=== PATIENT | male | born 1985 | race Caucasian/White ===

== ENCOUNTER 2017-12-29 06:32 | Emergency (ER) | payer OTHER ==
[~2017-12-29] VITALS: Ht 188 cm; Wt 86.2 kg
[2017-12-29 06:35] VITALS: BP 94/51
--- NOTE | 2017-12-29 06:41 | NUR ---
PT TAKEN TO BED 11
--- NOTE | 2017-12-29 06:45 | NUR ---
Dr. Cat evaluating patient at bedside.
[2017-12-29] MEDS ORDERED: PHENYLEPHRINE 0.5% 15 ML BTL NS ONE ×2 (07:01→07:10)
[2017-12-29] MEDS ORDERED: BENZOCAINE 20% 57 GM CAN MC ONE (07:10)
--- NOTE | 2017-12-29 07:18 | NUR ---
PT BIB SELF C/O "Q-TIP" TO LEFT NOSTRIL BEING STUCK FOR A FEW DAYS . PT STATES HE HAD BLOODY NOSE AND WAS CLEANING NOSE AND APPLYING NEOSPORIN WHEN QTIP GOT STUCK. PT APPEARS TO BE IN NO APPARENT DISTRESS AT THIS TIME, SITTING IN WHEELCHAIR. NO BLEEDING, D/C OR FOREIGN BODY NOTED. PT STATES THE "ENTIRE QTIP FELL INTO NOSE" .
--- NOTE | 2017-12-29 07:18 | NUR ---
DR GALLARDO AT BEDSIDE EVALUATING PT.
[2017-12-29 08:17] VITALS: BP 101/59
--- NOTE | 2017-12-29 08:18 | NUR ---
Patient discharged with v/s stable. Written and verbal after care instructions given and explained. Patient verbalized understanding. Wheel Chair Assisted with to home. All questions addressed prior to discharge. Advised to follow up with PMD.
== END 2017-12-29 08:18 | disposition home or self-care (01) ==
LOC: MED 06:32
DX: Z03.89 Encounter for observation for other suspected diseases and conditions ruled out (principal); G82.50 Quadriplegia, unspecified
CPT/HCPCS: 99282

== ENCOUNTER 2019-06-22 15:42 | Emergency (ER) | payer OTHER ==
[~2019-06-22] VITALS: Ht 182.9 cm; Wt 86.2 kg
--- NOTE | 2019-06-22 15:48 | NUR ---
PT WHEELCHAIRED IN PERSONAL WHEELCHAIR TO ER BED 03
[2019-06-22 15:51] VITALS: BP 87/60
--- NOTE | 2019-06-22 16:26 | NUR ---
33 Y/O M IN THE ED FOR MEDICAL CLEARANCE FOR HIS MD. PT NEEDED AN EKG FOR CLEARANCE. GLADYS
--- NOTE | 2019-06-22 16:58 | NUR ---
DR HI AT BEDSIDE EXAMINING PATIENT.
[2019-06-22 17:02] VITALS: BP 87/60
--- NOTE | 2019-06-22 17:02 | NUR ---
Patient discharged with v/s stable. Written and verbal after care instructions given and explained. Patient verbalized understanding. Ambulatory with steady gait. All questions addressed prior to discharge. Advised to follow up with PMD. DR. HI DISCHARGED PATIENT.
== END 2019-06-22 17:02 | disposition home or self-care (01) ==
LOC: MED 15:42
DX: M54.2 Cervicalgia (principal); M25.519 Pain in unspecified shoulder; Z98.890 Other specified postprocedural states
CPT/HCPCS: 93005; 99283

== ENCOUNTER 2021-09-25 21:17 | Emergency (ER) | payer OTHER ==
[~2021-09-25] VITALS: Ht 188 cm; Wt 86.2 kg
[2021-09-25 21:48] VITALS: BP 142/85
--- NOTE | 2021-09-25 23:31 | NUR ---
Dr. Harding examming patient.
--- NOTE | 2021-09-26 00:06 | NUR ---
Jesus Manuel chan in [facility] - 09/26/21 at 0507 by [email or web address] Patient D/C without D/C papers.
[2021-09-26 00:40] VITALS: BP 142/85
--- NOTE | 2021-09-26 00:40 | NUR ---
Patient came back to ER . Patient discharged with v/s stable. Written and verbal after care instructions given and explained. Patient verbalized understanding. Ambulatory with steady gait. All questions addressed prior to discharge. Advised to follow up with PMD.
== END 2021-09-26 00:40 | disposition home or self-care (01) ==
LOC: MED 21:17
DX: S89.92XA Unspecified injury of left lower leg, initial encounter (principal); W18.2XXA Fall in (into) shower or empty bathtub, initial encounter; Y92.89 Other specified places as the place of occurrence of the external cause; Y93.89 Activity, other specified; Y99.8 Other external cause status
CPT/HCPCS: 73562; 99283

== ENCOUNTER 2021-11-26 10:16 | Inpatient (IN) | payer OTHER ==
[~2021-11-26] VITALS: Ht 188 cm; Wt 69.4 kg
--- NOTE | 2021-11-26 10:16 | NUR ---
PT BIBA, ALS, TO BED 10.
--- NOTE | 2021-11-26 10:20 | NUR ---
36 Y/O MALE BIBA ALS FROM [facility] FOR LOW BLOOD PRESSURE 68/38 ON SCENE. IV TO R AC 18G STARTED WITH NS FLUIDS RUNNING. ON ARRIVAL PT BP 61/30, A&OX4, STAGE 4 PRESSURE ULCER NOTED TO LEFT GLUTE, ACTIVE BLEEDING. ERMD REMOVED LARGE BLOOD CLOT. DENIES FEVER/CHILLS. DENIES N/V. 2NS BOLUS VERBAL ORDER AT BEDSIDE STARTED, PT ON BOX PERSON. EMT AT BEDSIDE FOR WOUND CARE. PMH: QUADREPLEGIC NKA
--- NOTE | 2021-11-26 10:22 | NUR ---
CODE SEPSIS CALLED BY STORM.
[2021-11-26 10:24] VITALS: BP 61/30
[2021-11-26] MEDS ORDERED: NACL 0.9% 1,000 ML IV ONE (10:25)
--- NOTE | 2021-11-26 11:04 | NUR ---
Patient noted to have existing wounds upon arrival to ER. Photos taken of wound and placed in chart. Wound covered with dressing. Physician informed.
[2021-11-26 11:09] LABS: BASOPHILS # (AUTO) 0.1 K/uL (0.00-0.22); BASOPHILS % (AUTO) 0.9 % (0.0-2.0); EOSINOPHILS # (AUTO) 0.1 K/uL (0-0.4); EOSINOPHILS % (AUTO) 1.2 % (0.0-4.0); LYMPHOCYTES # (AUTO) 1.8 K/uL (2.0-11.5); LYMPHOCYTES % (AUTO) 22.7 % (20.5-51.1); MEAN CORPUSCULAR HEMOGLOBIN 27 pg (27-31); MEAN CORPUSCULAR HGB CONC 33 g/dL (33-37); MEAN CORPUSCULAR VOLUME 82.1 fL (80-94); MONOCYTES # (AUTO) 0.6 K/uL (0.8-1.0); NEUTROPHILS # (AUTO) 5.3 K/uL (1.8-7.7); NEUTROPHILS % (AUTO) 67.2 % (42.2-75.2); PLATELET COUNT (AUTO) 330 K/uL (140-450); RED BLOOD CELL COUNT(AUTO) 2.07 MIL/uL (4.20-6.10); RED CELL DISTRIBUTION WIDTH 17.3 % (11.6-13.7); WHITE BLOOD COUNT (AUTO) 7.8 K/uL (4.8-10.8)
[2021-11-26] MEDS ORDERED: cefTRIAXone 1,000 MG VIAL ONE (11:11)
[2021-11-26 11:12] LABS: HEMOGLOBIN 5.6 g/dL (12.0-18.0)
[2021-11-26 11:16] LABS: ALBUMIN 1.8 g/dL (3.4-5.0); ANION GAP 11.8 (8-16); CARBON DIOXIDE 26.8 mmol/L (21-32); CREATININE 0.7 mg/dL (0.6-1.3); POTASSIUM 3.6 mmol/L (3.5-5.1); TOTAL BILIRUBIN 0.2 mg/dL (0.0-1.0)
[2021-11-26 11:17] LABS: PROTHROMBIN TIME 11.1 secs (10.8-13.4)
--- NOTE | 2021-11-26 11:45 | NUR ---
Emergent Consent signed per agreeing to administration of blood. Blood sent from blood bank. Information on unit of blood checked against patient wristband at bedside by two nurses. All information matches. Patient or responsible constitution party informed of potential complications associated with blood transfusion. Informed of possible transfusion reaction symptoms. Aware of need to notify nurse at once of itching, shortness of breath, flushing, feeling of impending doom, or other symptoms not previously present. Vital signs taken within 5 minutes prior to initiation of transfusion. RN will remain with patient for first 15 minutes of transfusion at which time vital signs will be re-assessed.
--- NOTE | 2021-11-26 13:22 | NUR ---
DR BAUER AT BEDSIDE EVALUATING PT. 4 UNITS OF PRBCS ORDERED. RECEIVED ORDER TO ONLY INFUSE 2, THEN LET HIM KNOW.
--- NOTE | 2021-11-26 13:28 | NUR ---
JASON SWAB COLLECTED AND WALKED TO LAB
[2021-11-26] MEDS ORDERED: ZOLPIDEM 5 MG TAB PO PRN (13:40)
[2021-11-26] MEDS ORDERED: POTASSIUM CHLORIDE 10 MEQ TABER PO PRN (13:40)
[2021-11-26] MEDS ORDERED: guaiFENesin DM 200/20 MG-10 ML 10 ML UDC PO PRN (13:40)
[2021-11-26] MEDS ORDERED: ACETAMINOPHEN 325 MG TAB PO PRN (13:40)
[2021-11-26] MEDS ORDERED: ONDANSETRON 4 MG/2 ML VIAL IM/IVP PRN (13:40)
[2021-11-26] MEDS ORDERED: DOCUSATE SODIUM 100 MG GELCAP PO PRN (13:40)
[2021-11-26] MEDS ORDERED: BACLOFEN 10 MG TAB PO SCH (13:53)
[2021-11-26] MEDS: NACL 0.9% 1,000 ML IV SCH (13:55)
[2021-11-26 14:06] LABS: MAGNESIUM 1.8 mg/dL (1.8-2.4); PHOSPHORUS 3.5 mg/dL (2.5-4.9)
--- NOTE | 2021-11-26 14:20 | NUR ---
Emergent Consent signed per agreeing to administration of blood. 2nd units of Blood has been type and crossmatched. Blood sent from blood bank. Information on unit of blood checked against patient wristband at bedside by two nurses. All information matches. Patient or responsible alliance party informed of potential complications associated with blood transfusion. Informed of possible transfusion reaction symptoms. Aware of need to notify nurse at once of itching, shortness of breath, flushing, feeling of impending doom, or other symptoms not previously present. Vital signs taken within 5 minutes prior to initiation of transfusion. RN will remain with patient for first 15 minutes of transfusion at which time vital signs will be re-assessed.
[2021-11-26 14:49] LABS: APPEARANCE,URINE SL CLOUDY (CLEAR); BILIRUBIN,URINE NEGATIVE (NEGATIVE); BLOOD, URINE 2+ (NEGATIVE); COLOR,URINE AMBER (YELLOW); LEUKOCYTE ESTERASE ,URINE 2+ (NEGATIVE); NITRITE, URINE POSITIVE (NEGATIVE); PH,URINE 6.5 (5.0-9.0); UGLUCOSE NEGATIVE (NEGATIVE)
[2021-11-26 15:04] LABS: RBC,URINE 11-20 (MOD) /HPF (0-5)
[2021-11-26 15:05] LABS: CALCIUM OXALATE CRYSTALS,UR 0-10 /HPF (None Seen)
--- NOTE | 2021-11-26 15:05 | NUR ---
2ND BAG OF PRBC DONE, NADR.
[2021-11-26 15:06] LABS: OTHER CASTS, URINE None Seen /LPF (None Seen); RED BLOOD CELL CASTS,URINE 0-10 /LPF (None Seen); URIC ACID CRYSTALS,URINE None Seen /HPF (None Seen)
--- NOTE | 2021-11-26 15:32 | NUR ---
2 bags infused, Doctor made aware. VS 89/55 hr 89
--- NOTE | 2021-11-26 15:39 | NUR ---
spoke to via phone, made aware with regards to wound site on L buttock, pt still profusely bleeding, dressing soaked. stated "he will call back".
--- NOTE | 2021-11-26 15:46 | NUR ---
LAB AT BEDSIDE FOR BLOOD DRAW. PT REFUSING STATING "GO AWAY, COME BACK LATER, I FEEL BETTER". DR BAUER MADE AWARE
--- NOTE | 2021-11-26 16:05 | NUR ---
DR. BAUER BEDSIDE SPEAKING WITH PATIENT
--- NOTE | 2021-11-26 16:09 | NUR ---
DR. BAUER REQUESTING ONE MORE UNIT OF BLOOD TO BE GIVEN, BLOOD BANK AWARE.
[2021-11-26 16:20] LABS: HEMATOCRIT 25.4 % (36-52); HEMOGLOBIN 8.4 g/dL (12.0-18.0)
--- NOTE | 2021-11-26 16:35 | NUR ---
DR. PORTER BEDSIDE EVALUATING PATIENT
--- NOTE | 2021-11-26 16:38 | NUR ---
DC PLANNING: ORDER RECEIVED FOR HLOC, REFERRAL PACKET FAXED TO [facility], [facility], [facility] AND [facility]. KHARI WILL FOLLOW. Addendum: 11/26/21 at 1714 by Malika Price CM DC PLANNING: KHARI SPOKE WITH VIOLETTE AT [place], SHE WILL PROCESS REFERRAL. [facility] AND [facility] DECLINED THEY ARE AT [place], [facility] IS AT [facility] AND ASKED THAT A F/U CALL BE MADE LATER TONIGHT IF THE PATIENT STILL NEEDS TO BE TRANSFERRED. PATIENT GOING TO OR FOR I&D OF STAGE 4 SACRAL DECUBITUS WHICH IS SOURCE OF BLEEDING, WITH DR PORTER, NEED FOR HLOC TO BE DETERMINED POST OP BY MD. CM WILL FOLLOW Addendum: 11/27/21 at 0853 by Mailka Price CM DC PLANNING: HLOC TRANSFER CANCELLED PER MD REQUEST PATIENT IS NOW STABILIZED. CM WILL FOLLOW Addendum: 11/27/21 at 1511 by Jazmine Davis RN DC PLANNING: PATIENT HAS AN ORDER OF WOUND VAC WITH [facility] SPOKE WITH PATIENT OFFERED HIM TO GO TO SNF FOR WOUND CARE PER PT REFUSED TOGO TO SNF STATED HE IS WITH [facility] AND WANTED TO CONTINUE TO CARE WITH THEM CALLED [facility] [phone] SPOKE WITH RICARDO AND FAXED ALL PAPERWORK TO [phone] CM TO FOLLOW Addendum: 11/27/21 at 1619 by Jazmine Davis RN DC PLANNING: RECEIVED A CALL FROM [facility] [phone] SPOKE WITH RICARDO STATED THEY REVIEWED THE PAPERWORK AND ACCEPTED PATIENT, [facility] WILL SCHEDULE WITH PATIENT TO ARRANGE A VISIT FOR WOUND VAC. PROVIDE THE UNIT NUMBER TO RICARDO AT [facility]. NOTIFIED JASON CHARGE NURSE TO FOLLOW UP WITH [facility] IF PT HAS A DC ORDER. CM TO FOLLOW Addendum: 12/01/21 at 1412 by Jazmine Davis RN DC PLANNING: RECEIVED A CALL FROM [facility] [phone] SPOKE WITH DAVID OCONNOR [facility] HAS TO FAX THE ORDER TO [facility]. CALLED AND FAXED THE ORDER TO [facility], SPOKE WITH BREA PORRAS FOR [facility] AFTER REVIEWING WILL DELIVER IT AT HOME [facility]. PROVIDE [facility]'S NUMBER TO BREA. CM TO FOLLOW
--- NOTE | 2021-11-26 16:40 | NUR ---
DR. PORTER STATING PATIENT WILL HEAD TO SURGERY TODAY, CONSENT SIGNED BY SURGEON AND TWO RN'S, VERBAL CONSENT OBTAINED FROM PATIENT. PER DR. PORTER AND DR. BAUER LAST UNIT OF BLOOD WILL BE HELD AT THIS TIME.
--- NOTE | 2021-11-26 16:59 | NUR ---
OR STAFF BEDSIDE
--- NOTE | 2021-11-26 17:00 | NUR ---
PATIENT TAKEN TO OR BY OR STAFF, TRANSFER OF CARE AT THIS TIME.
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
[2021-11-26] MEDS ORDERED: DESFLURANE 240 ML BTL INH ONE (17:29)
--- NOTE | 2021-11-26 18:15 | NUR ---
RECEIVED PATIENT FROM OR POST I&D OF LEFT BUTTOCK. BP STABLE. AROUSES TO VERBAL STIMULI. ASKING FOR FOR FOOD. HEART SOUNDS REGULAR. MONITOR SR. RIGHT AC #18G WITH NS AT 100CC/HR. ANTERIOR LUNG SOUNDS CLEAR. SUPRAPUBIC CATHETER IN PLACE WITH YELLOW URINE.
[2021-11-26 18:30] VITALS: BP 130/54
[2021-11-26] MEDS ORDERED: PROPOFOL 200 MG/20 ML VIAL IV ONE (19:00)
--- NOTE | 2021-11-26 19:00 | NUR ---
PATIENT AWAKE. ATE 100% OF MEAL. TOTAL FEED. DENIES PAIN.
[2021-11-26] MEDS ORDERED: ONDANSETRON 4 MG/2 ML VIAL ONE (19:01)
--- NOTE | 2021-11-26 19:30 | NUR ---
RECEIVED THIS NEWLY ADMITTED PATIENT FROM ER TO OR AFTER WOUND DEBRIDEMENT. PATIENT IS ALERT AND ORIENTED BUT WITH MINIMAL MOVEMENT OF UPPER EXTREMITIES AND PER MED. RECORDS WITH HX OF QUADRIPLEGIA.BREATHING EVEN AND UNLABORED, ON ROOM AIR S02 98%. CARDIAC SCOPE SHOWS ON SINUS RHYTHM HR 86/MIN, NO ARRHYTHMIAS SEEN. COMMENCING ON IVF NORMAL SALINE AT 100 ML/HR VIA G 18 IV CANNULA ON RIGHT AC, PATENT AND INTACT.ABDOMEN IS SOFT, ACTIVE BOWEL SOUNDS. WITH SUPRA PUBIC CATH IN PLACE DRAINING TO CLOUDY YELLOW URINE OUTPUT,PATENT AND INTACT.
--- NOTE | 2021-11-26 19:30 | NUR ---
REPORT GIVEN TO JERMAN FRIED. ASHUTOSHS.
[2021-11-26 20:00] VITALS: BP 117/69
--- NOTE | 2021-11-26 20:30 | NUR ---
PATIENT IS NOT COOPERATIVE ENOUGH TO ANSWER MY ADMISSION ASSESSMENT.
[2021-11-26 21:00] VITALS: BP 103/58
[2021-11-26 21:48] LABS: BASOPHILS # (AUTO) 0.1 K/uL (0.00-0.22); EOSINOPHILS # (AUTO) 0.1 K/uL (0-0.4); EOSINOPHILS % (AUTO) 2.1 % (0.0-4.0); HEMATOCRIT 21.2 % (36-52); HEMOGLOBIN 7.2 g/dL (12.0-18.0); LYMPHOCYTES # (AUTO) 1.8 K/uL (2.0-11.5); LYMPHOCYTES % (AUTO) 36.2 % (20.5-51.1); MEAN CORPUSCULAR HEMOGLOBIN 28 pg (27-31); MEAN CORPUSCULAR HGB CONC 34 g/dL (33-37); MEAN CORPUSCULAR VOLUME 81.6 fL (80-94); MONOCYTES # (AUTO) 0.5 K/uL (0.8-1.0); MONOCYTES % (AUTO) 9.6 % (1.7-9.3); NEUTROPHILS # (AUTO) 2.5 K/uL (1.8-7.7); NEUTROPHILS % (AUTO) 51.1 % (42.2-75.2); PLATELET COUNT (AUTO) 278 K/uL (140-450); RED CELL DISTRIBUTION WIDTH 17.2 % (11.6-13.7)
[2021-11-26 22:00] VITALS: BP 77/42
--- NOTE | 2021-11-26 22:30 | NUR ---
SEND MESSAGE TO DR ESCALANTE TO REFER PT'S BP 74-77 SYSTOLIC; WITH NEW ORDER TO START PATIENT ON LEVOPHED DRIP; CARRIED OUT.
[2021-11-26] MEDS ORDERED: NOREPINEPHRINE 4 MG in DEXTROSE 5% 250 ML IV PRN (22:50)
[2021-11-26] MEDS ORDERED: NOREPINEPHRINE 4 MG/4 ML VIAL IV ONE (22:50)
[2021-11-26 23:00] VITALS: BP 83/38
[2021-11-27] VITALS (21 sets, daily range): BP systolic 76–173; BP diastolic 39–106
--- NOTE | 2021-11-27 | NUR ---
V/S MONITORED CLOSELY; LEVOPHED DRIP IN PROGRESS PER PROTOCOL
[2021-11-27] MEDS: NACL 0.9% 1,000 ML IV SCH ×3 (00:25→14:03)
--- NOTE | 2021-11-27 04:00 | NUR ---
ATE SNACKS; SANDWICH AND JUICE; WITH GOOD APPETITE.
[2021-11-27] MEDS: HYDROcodone/APAP 7.5/325 MG 1 TAB PO PRN ×2 (04:36→19:34)
[2021-11-27] MEDS ORDERED: NOREPINEPHRINE 4 MG/4 ML VIAL IV ONE (04:48)
--- NOTE | 2021-11-27 05:00 | NUR ---
REFUSED MORNING BED BATH; PREFERS TO SLEEP.
--- NOTE | 2021-11-27 05:15 | NUR ---
NO SIGNS OF BLEEDING FROM DECUB WOUND SITE, DRESSING IS INTACT.
[2021-11-27] MEDS ORDERED: BACLOFEN 10 MG TAB PO PRN (05:30)
[2021-11-27 06:37] LABS: ANION GAP 8.2 (8-16); CREATININE 0.6 mg/dL (0.6-1.3); POTASSIUM 4.2 mmol/L (3.5-5.1)
[2021-11-27 06:48] LABS: BASOPHILS # (AUTO) 0.1 K/uL (0.00-0.22); BASOPHILS % (AUTO) 1.2 % (0.0-2.0); EOSINOPHILS # (AUTO) 0.2 K/uL (0-0.4); EOSINOPHILS % (AUTO) 4.2 % (0.0-4.0); HEMATOCRIT 20.6 % (36-52); LYMPHOCYTES # (AUTO) 1.7 K/uL (2.0-11.5); MEAN CORPUSCULAR HEMOGLOBIN 28 pg (27-31); MEAN CORPUSCULAR HGB CONC 34 g/dL (33-37); MEAN CORPUSCULAR VOLUME 82.2 fL (80-94); MONOCYTES # (AUTO) 0.5 K/uL (0.8-1.0); MONOCYTES % (AUTO) 9.3 % (1.7-9.3); NEUTROPHILS # (AUTO) 2.6 K/uL (1.8-7.7); NEUTROPHILS % (AUTO) 51.3 % (42.2-75.2); PLATELET COUNT (AUTO) 229 K/uL (140-450); RED BLOOD CELL COUNT(AUTO) 2.51 MIL/uL (4.20-6.10); RED CELL DISTRIBUTION WIDTH 17.5 % (11.6-13.7)
--- NOTE | 2021-11-27 07:25 | NUR ---
CRITICAL LAB RESULT TEXTED TO DR. ESCALANTE;AWAITING FOR HIS RESPONSE.
--- NOTE | 2021-11-27 07:30 | NUR ---
ENDORED TO AM SHIFT RN JASON, FO CONTINUITY OF CARE.
--- NOTE | 2021-11-27 08:34 | NUR ---
PATIENT HAS BEEN SCREENED AND CATEGORIZED HIGH NUTRITION RISK. PATIENT WILL BE SEEN WITHIN 1-2 DAYS OF ADMISSION. / RECEIVED CONSULT AND REFERRAL FOR UNHEALED WOUNDS AND PRESSURE INJURY MAURY MEZA RD
[2021-11-27] MEDS ORDERED: BACLOFEN 10 MG TAB PO SCH (09:00)
[2021-11-27] MEDS: BACLOFEN 10 MG TAB PO SCH ×3 (09:15→17:00)
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
--- NOTE | 2021-11-27 12:31 | NUR ---
PT REMOVED RAC 18G IV. EDUCATED PT REGARDING ORDERED IVF AND IVP/IVPB MEDICATIONS, AND THE NEED FOR IV ACCESS AND REINSERTION. PT REFUSED IV, IVF AND IV MEDICATIONS.
--- NOTE | 2021-11-27 12:56 | NUR ---
DR ESCALANTE ORDERED PICC LINE BECAUSE PT SAID HE WILL TOLERATE PICC LINE, AND REFUSE IV INSERTION. PT AGITATED. DR ESCALANTE SIGNED INFORMED CONSENT. PT REFUSED TO SIGN INFORMED CONSENT.
[2021-11-27] MEDS: MIDODRINE 5 MG TAB PO SCH ×2 (13:00→18:16)
[2021-11-27] MEDS: THERAHONEY GEL 42.5 GM TP SCH (13:00)
[2021-11-27] MEDS: GAUZE TP SCH (13:00)
[2021-11-27] MEDS: Z-GUARD PASTE TP SCH (13:00)
--- NOTE | 2021-11-27 14:13 | NUR ---
11/27/21 RD INITIAL ASSESSMENT COMPLETED PLEASE REFER TO NUTRITION ASSESSMENT UNDER CARE ACTIVITY FOR ESTIMATED NUTRITIONAL NEEDS. 1. CONTINUE REGULAR DIET TOLERATED 2. RECOMMEND ENSURE AND QUIN BID PER RX PROTOCOL 3. RD TO FOLLOW-UP 3-5 DAYS, MODERATE RISK MAURY MEZA RD
--- NOTE | 2021-11-27 16:00 | NUR ---
DC PLANNING SW ATTEMPTED TO MET WITH PATIENT TO COMPLETE ASSESSMENT AND TO GATHER HIS COLLATERAL INFORMATION. PATIENT WAS UNCOOPERATIVE AND REFUSE TO PROVIDE HIS INFORMATION. REQUEST FOR SW TO LEAVE AND NOT ASK HIM ANY MORE QUESTIONS. SW/CM WILL FOLLOW UP NEEDED.
--- NOTE | 2021-11-27 19:25 | NUR ---
GIVE REPORT TO LAYTON RODRIGUEZ AND RAMON FOR CONTINUE CHINTAN.
--- NOTE | 2021-11-27 19:40 | NUR ---
REPORT RECEIVED FROM DAY SHIFT RN (JASON). PATIENT IS AWAKE, ALERT AND ORIENTED x4. PATIENT APPEARS COMFORTABLE IN BED. HAS QUADRIPLEGIA, AND IS UNABLE TO MOVE BILATERAL LOWER EXTREMITIES. PATIENT IS ON ROOM AIR. NO IV ACCESS. ABLE TO MAKE ALL NEEDS KNOWN. PATIENT HAS SUPRABUPIC CATHETER. PATIENT HAS PRESSURE ULCER ON BUTTOCKS, AND PRESSURE ULCER ON SACRAL.
--- NOTE | 2021-11-27 20:30 | NUR ---
PATIENT IS REQUESTING TO NOT BE DISTURBED; ONLY IF NEEDED. CALL LIGHT LEFT WITHIN REACH, BED IN LOWEST POSITION. WILL CONTINUE TO BE AVAILABLE FOR PATIENT IF NEEDED
--- NOTE | 2021-11-27 23:17 | NUR ---
PATIENT LYING IN BED, EATING APPLESAUCE; NO NURSING INTERVENTION NEEDED
[2021-11-28] VITALS (16 sets, daily range): BP systolic 90–154; BP diastolic 49–110
[2021-11-28] MEDS: Z-GUARD PASTE TP SCH ×2 (01:00→12:16)
[2021-11-28] MEDS: GAUZE TP SCH ×2 (01:00→12:15)
--- NOTE | 2021-11-28 02:00 | NUR ---
PATIENT REMAINS ASLEEP, DOES NOT APPEAR TO BE IN DISTRESS. WILL CONTINUE TO MONITOR FOR ANY POTENTIAL NEEDS
--- NOTE | 2021-11-28 04:00 | NUR ---
LAB AT BEDSIDE TO OBTAIN SAMPLE. PATIENT ASKED FOR MEDICATION (BACLOFEN); AND WAS REMINDED THAT MD PRESCRIBED MEDICATION TID AND NEXT DOSE IS DUE AT 0900. PATIENT THEN REQUESTED NORCO. MEDICATION ADMINISTERED AND PATIENT FELL BACK ASLEEP. WILL MONITOR PATIENT FOR ANY CHANGES OR ADVERSE EVENTS
[2021-11-28] MEDS: HYDROcodone/APAP 7.5/325 MG 1 TAB PO PRN ×2 (04:10→05:12)
[2021-11-28 04:40] LABS: BASOPHILS # (AUTO) 0.1 K/uL (0.00-0.22); BASOPHILS % (AUTO) 1.4 % (0.0-2.0); EOSINOPHILS # (AUTO) 0.3 K/uL (0-0.4); EOSINOPHILS % (AUTO) 4.7 % (0.0-4.0); HEMATOCRIT 22.1 % (36-52); HEMOGLOBIN 7.3 g/dL (12.0-18.0); LYMPHOCYTES # (AUTO) 2.6 K/uL (2.0-11.5); LYMPHOCYTES % (AUTO) 38.2 % (20.5-51.1); MEAN CORPUSCULAR HEMOGLOBIN 28 pg (27-31); MEAN CORPUSCULAR HGB CONC 33 g/dL (33-37); MEAN CORPUSCULAR VOLUME 82.7 fL (80-94); MONOCYTES # (AUTO) 0.6 K/uL (0.8-1.0); MONOCYTES % (AUTO) 8.5 % (1.7-9.3); NEUTROPHILS # (AUTO) 3.2 K/uL (1.8-7.7); NEUTROPHILS % (AUTO) 47.2 % (42.2-75.2); PLATELET COUNT (AUTO) 349 K/uL (140-450); RED BLOOD CELL COUNT(AUTO) 2.67 MIL/uL (4.20-6.10); RED CELL DISTRIBUTION WIDTH 17.4 % (11.6-13.7); WHITE BLOOD COUNT (AUTO) 6.7 K/uL (4.8-10.8)
[2021-11-28 04:48] LABS: ANION GAP 8.6 (8-16); CARBON DIOXIDE 30.8 mmol/L (21-32); CREATININE 0.4 mg/dL (0.6-1.3); POTASSIUM 4.4 mmol/L (3.5-5.1)
[2021-11-28] MEDS: NACL 0.9% 1,000 ML IV SCH (06:25)
[2021-11-28 07:07] LABS: FOLIC ACID 12.3 ng/mL (>3.0)
--- NOTE | 2021-11-28 07:17 | NUR ---
RECEIVED BEDSIDE REPORT FROM CHUY NGUYEN RN FOR CONTINUITY OF CARE. PT SUPINE IN THE BED, AAOX4, PERRLA, ABLE TO MAKE NEEDS KNOWN. ON RM AIR, SPO2 96%. SR ON BEDSIDE MONITOR. BP 101/62. BOWEL SOUNDS ACTIVE. SUPRAPUBIC CATHETER IN PLACE, DRAINING CLEAR YELLOW URINE. GENERALIZED WEAKNESS BUE BLE. SKIN NOT INTACT, SEE SACRAL/BUTTOCK WOUND ASSESSMENT. NO IV ACCESS, PT REFUSES. STANDARD PRECAUTIONS IN PLACE. CALL LIGHT WITHIN REACH. INITIAL ASSESSMENT COMPLETE, WILL CONTINUE TO CLOSELY MONITOR.
--- NOTE | 2021-11-28 07:17 | NUR ---
ENDORSED CARE OF PATIENT TO DAY SHIFT RN MARGOT)
[2021-11-28] MEDS: MIDODRINE 5 MG TAB PO SCH ×2 (07:50→12:15)
[2021-11-28] MEDS: BACLOFEN 10 MG TAB PO SCH ×3 (08:18→17:30)
--- NOTE | 2021-11-28 09:00 | NUR ---
PT CLEANED AND REPOSITIONED. CHANGED WOUND DRESSINGS. PROVIDED CHG BATH. PT TOLERATED WELL. WILL CONTINUE TO CLOSELY MONITOR.
--- NOTE | 2021-11-28 09:40 | NUR ---
SEEN AND EXAMINED BY DR MC. RECEIVED TELEMETRY TRANSFER ORDERS.
--- NOTE | 2021-11-28 10:45 | NUR ---
SEEN AND EXAMINED BY DR ESCALANTE. DR WANTS TO INCREASE MIDODRINE DOSE TO 15 MG TID. PT REFUSED, MD EDUCATED ABOUT PERFUSION AND WOUND HEALING. PT BECAME AGITATED, REFUSED TEACHING.
--- NOTE | 2021-11-28 11:43 | NUR ---
ENDORSED BEDSIDE REPORT TO JASON RN FOR CONTINUITY OF CARE.
[2021-11-28] MEDS: THERAHONEY GEL 42.5 GM TP SCH (12:16)
[2021-11-28] MEDS ORDERED: LEVO750T51 PO (12:41)
[2021-11-28] MEDS ORDERED: PRO5 PO (12:41)
[2021-11-28] MEDS ORDERED: FERR325E14 PO (12:42)
--- NOTE | 2021-11-28 19:30 | NUR ---
RECEIVED PATIENT ON BED; AWAKE ALERT AND ORIENTED; AWAITING FOR THE AMBULANCE TO PICK HIM UP FOR DISHCARGE HOME. BREATHING EVEN AND UNLABORED ON ROOM; S02 97%. CARDIACSCOPE SHOWS ON SINUS RHYTHM HR 78/MIN NO ARRHYTHMIAS SEEN.NO IV ACCESS BECAUSE PATIENT REFUSED SINCE YESTERDAY AND MD IS AWARE OF IT ENDORSED. ABDOMEN IS SOFT, ACTIVE BOWEL SOUNDS. WITH SUPRA PUBIC CATH IN PLACE TO GRAVITY DRAINAGE BAG DRAINING TO PALE YELLOW URINE OUTPUT; INTACT.
--- NOTE | 2021-11-28 21:20 | NUR ---
[facility] IS HERE TO SCHEDULE ANALYST THE PATIENT FOR DISCHARGE HOME. ENDORSED TO AMBULANCE PERSONNEL.
== END 2021-11-28 21:20 | disposition home health service (06) | DRG 853 ==
LOC: MED 10:16 → MTU 13:42 → MIC 18:33
PROVIDERS: ADMIT Student in an Organized Health Care Education/Training Program; ATTEND Student in an Organized Health Care Education/Training Program
PROC: 0JB70ZZ Excision of Back Subcutaneous Tissue and Fascia, Open Approach (ICD-10-PCS; 2021-11-26)
PROC: 30233N1 Transfusion of Nonautologous Red Blood Cells into Peripheral Vein, Percutaneous Approach (ICD-10-PCS; principal; 2021-11-26 16:00)
DX: A41.9 Sepsis, unspecified organism (principal); L89.324 Pressure ulcer of left buttock, stage 4; R57.1 Hypovolemic shock; R65.21 Severe sepsis with septic shock; D62 Acute posthemorrhagic anemia; G82.20 Paraplegia, unspecified; N39.0 Urinary tract infection, site not specified; F17.210 Nicotine dependence, cigarettes, uncomplicated; Z20.822 Contact with and (suspected) exposure to COVID-19; Z79.899 Other long term (current) drug therapy; Z98.1 Arthrodesis status; Z71.51 Drug abuse counseling and surveillance of drug abuser; Z71.6 Tobacco abuse counseling
CPT/HCPCS: 36415; 36430; 36600; 71045; 73610; 80048; 80053; 81001; 82607; 82728; 82746; 82803; 83540; 83605; 83735; 84100; 85018; 85025; 85045; 85610; 85730; 86886; 86900; 86901; 86920; 87040; 87070; 87075; 87081; 87086; 87205; 87635-QW; 88304; 93005; 96361; 96365; 99291; J0696; J2405; J2704; J3490; J7030; J7120; P9016; Q0092; Q9967

== ENCOUNTER 2022-05-20 18:13 | Emergency (ER) | payer OTHER ==
[~2022-05-20] VITALS: Ht 188 cm; Wt 70.3 kg
[~2022-05-20 18:13] MED LIST: FERR325E14 PO; PRO5 NG; QUET100T44 PO
[2022-05-20 18:38] VITALS: BP 93/57
--- NOTE | 2022-05-20 20:54 | NUR ---
PT W/C ASSISTED TO BED #7
--- NOTE | 2022-05-20 21:00 | NUR ---
RECEIVED IN BED 7 WITH C/O CLOGGED URINARY CATHETER.. PT IS PARAPLEGIC IN W/C, IS ANXIOUS, SAYING HE HAS A BED SORE AND NEEDS TO GET HOME TO GO TO BED
--- NOTE | 2022-05-20 22:05 | NUR ---
PT NO LONGER WANTS TO WAIT. SAID CHAYA AND LEFT ER. LWBS
== END 2022-05-20 22:05 | disposition left against medical advice (07) ==
LOC: MED 18:13
DX: Z43.5 Encounter for attention to cystostomy (principal); Z53.21 Procedure and treatment not carried out due to patient leaving prior to being seen by health care provider

== ENCOUNTER 2022-09-30 15:00 | Inpatient (IN) | payer OTHER ==
[~2022-09-30] VITALS: Ht 188 cm; Wt 67.6 kg
--- NOTE | 2022-09-30 15:07 | NUR ---
PATIENT BIBA TO BED 11
[2022-09-30 15:11] VITALS: BP 141/95
[2022-09-30] MEDS ORDERED: NACL 0.9% 2,000 ML IV ONE (16:10)
--- NOTE | 2022-09-30 16:16 | NUR ---
BIB BY MEDIC , C/O GEMN BODY PAIN , POSS CLOGGED SUPRA PUBIC CATH TUBED , EMPTIED BAG YESTERDAY , NO URINE OUTUT SINCE , AT BS TO EXAMINE PT , FLUSHED CATH WITH NO SUCCESS, PT IS ALSO HYPERTENSIVE , MADE AWARE, PT ALSO HAS UNSTAGEABLE BEDSORE ,
[2022-09-30 16:28] LABS: BASOPHILS # (AUTO) 0.1 K/uL (0.00-0.22); BASOPHILS % (AUTO) 0.8 % (0.0-2.0); EOSINOPHILS # (AUTO) 0.2 K/uL (0-0.4); EOSINOPHILS % (AUTO) 1.8 % (0.0-4.0); HEMATOCRIT 27.4 % (36-52); HEMOGLOBIN 8.7 g/dL (12.0-18.0); LYMPHOCYTES # (AUTO) 0.9 K/uL (2.0-11.5); LYMPHOCYTES % (AUTO) 8.8 % (20.5-51.1); MEAN CORPUSCULAR HEMOGLOBIN 22 pg (27-31); MEAN CORPUSCULAR HGB CONC 32 g/dL (33-37); MEAN CORPUSCULAR VOLUME 68.8 fL (80-94); MONOCYTES # (AUTO) 1.2 K/uL (0.8-1.0); MONOCYTES % (AUTO) 11.7 % (1.7-9.3); NEUTROPHILS # (AUTO) 7.9 K/uL (1.8-7.7); NEUTROPHILS % (AUTO) 76.9 % (42.2-75.2); PLATELET COUNT (AUTO) 512 K/uL (140-450); RED BLOOD CELL COUNT(AUTO) 3.99 MIL/uL (4.20-6.10); RED CELL DISTRIBUTION WIDTH 18.3 % (11.6-13.7); WHITE BLOOD COUNT (AUTO) 10.3 K/uL (4.8-10.8)
[2022-09-30 16:44] LABS: ALBUMIN 1.7 g/dL (3.4-5.0); ANION GAP 10.2 (8-16); ASPARTATE AMINOTRANSFERASE 22 U/L (15-37); CARBON DIOXIDE 31.3 mmol/L (21-32); CHLORIDE 101 mmol/L (98-107); CREATININE 0.5 mg/dL (0.6-1.3); GFR ARICAN-AMERICAN 243 mL/min (>90); GLUCOSE 107 mg/dL (74-106); POTASSIUM 3.5 mmol/L (3.5-5.1); SODIUM SERUM 139 mmol/L (136-145); TOTAL BILIRUBIN 0.2 mg/dL (0.0-1.0); UREA NITROGEN, BLOOD 13 mg/dL (7-18)
[2022-09-30] MEDS ORDERED: cefTRIAXone 1,000 MG VIAL ONE (16:52)
--- NOTE | 2022-09-30 17:03 | NUR ---
BLADDER SCAN COMPLETED, 35 ML URINE DETECTED VIA SCAN, MD MAIN
--- NOTE | 2022-09-30 17:26 | NUR ---
Pt bib ambulance w/multiple complaints, paraplegia, chronic sacral ulcer wounds, suprapubic catheter clogged since yesterday. pt request pressure ulcer checked. safety [id number]
[2022-09-30] MEDS ORDERED: POTASSIUM CHLORIDE 10 MEQ TABER PO PRN (18:55)
[2022-09-30] MEDS ORDERED: MAG SULF 2000 MG/WATER PREMIX 50 ML IV PRN (18:55)
[2022-09-30] MEDS ORDERED: ACETAMINOPHEN 325 MG TAB PO PRN (18:55)
[2022-09-30] MEDS ORDERED: ONDANSETRON 4 MG/2 ML VIAL IVP PRN (18:55)
[2022-09-30] MEDS ORDERED: DOCUSATE SODIUM 100 MG GELCAP PO PRN (18:55)
[2022-09-30] MEDS ORDERED: LORazepam 2 MG/ML VIAL IVP PRN (18:55)
[2022-09-30] MEDS ORDERED: ZOLPIDEM 10 MG TAB PO PRN (18:55)
[2022-09-30] MEDS ORDERED: NACL 0.9% 500 ML IV ONE (18:55)
--- NOTE | 2022-09-30 19:29 | NUR ---
REPORT TO SURYA STOLL
--- NOTE | 2022-09-30 19:30 | NUR ---
Patient resting in bed, A/Ox4, chest rise and fall symmetrical, no s/s of distress, patient on monitor.
[2022-09-30] MEDS ORDERED: BACLOFEN 10 MG TAB PO ONE ×2 (20:15→22:40)
[2022-09-30] MEDS: QUEtiapine FUMARATE 100 MG TAB PO SCH (20:24)
[2022-09-30] MEDS: MIDODRINE 5 MG TAB NG SCH (20:24)
--- NOTE | 2022-09-30 20:37 | NUR ---
ER physician changed suprapubic catheter. Patient tolerated procedure well, no c/o pain.
[2022-09-30 20:59] LABS: APPEARANCE,URINE CLEAR (CLEAR); BILIRUBIN,URINE NEGATIVE (NEGATIVE); BLOOD, URINE 2+ (NEGATIVE); COLOR,URINE YELLOW (YELLOW); LEUKOCYTE ESTERASE ,URINE 2+ (NEGATIVE); NITRITE, URINE POSITIVE (NEGATIVE); UGLUCOSE NEGATIVE (NEGATIVE)
[2022-09-30 21:18] LABS: RBC,URINE 11-20 (MOD) /HPF (0-5)
[2022-09-30 21:19] LABS: TRIPLE PHOSPHATE CRYSTAL,UR 0-10 /HPF (None Seen); URIC ACID CRYSTALS,URINE 0-10 /HPF (None Seen)
--- NOTE | 2022-09-30 21:50 | NUR ---
Patient resting in bed, A/Ox4, chest rise and fall symmetrical, no s/s of distress, patient on monitor.
--- NOTE | 2022-09-30 21:55 | NUR ---
Patient will be admitted to care of Dr. Mason. Admited to Medsurg. Will go to room 105B. Belongings list completed. Report to Magali De Los Santos RN, RN verbalized understanding of report, no further questions. Charge Nurse Augustine STOLL verbally informed that patient was given 20mg Baclofen by Dr. Canales, and Dr. Canales requests admitting physician, Dr. Mason, prescribe another 20mg of Baclofen, due to patient stating he "takes 40mg of Baclofen at home." Charge Nurse Augustine STOLL verbalized understanding and stated, he "will call Dr. Mason and request 20mg Baclofen for the patient." Addendum: 09/30/22 at 2223 by [id number] Patient will be admitted to care of Dr. Mason. Admited to Medsurg. Will go to room 105B. Belongings list completed. Report to Magali De Los Santos RN, RN verbalized understanding of report, no further questions. Magali STOLL also verbalized understanding patient declined his Midodrine and his Seroquel. Charge Nurse Augustine STOLL verbally informed that patient was given 20mg Baclofen by Dr. Canales, and Dr. Canales requests admitting physician, Dr. Mason, prescribe another 20mg of Baclofen, due to patient stating he "takes 40mg of Baclofen at home." Charge Nurse Augustine STOLL verbalized understanding and stated, he "will call Dr. Mason and request 20mg Baclofen for the patient."
[2022-09-30 22:15] VITALS: BP 115/63
--- NOTE | 2022-09-30 22:15 | NUR ---
RECEIVED PT. AAOX4 , FROM ER/ [facility] , TRANSFER TO BED BY MANUAL LIFT . PARAPLEGIC - HX OF SPINAL CORD INJURY , IV SITE AT LEFT IJ INTACT AND PATENT , DENIES PAIN AT THIS TIME , NO S/SX OF ACUTE DISTRESS NOTED , PER ER HX SUPRAPUBIC CLOGGED , CHANGED NEW ONE BY ER DOC DRAINING CLEAR U.O AT AMOUNT OF 400CC . FURTHER ADMISSION ASSESSMENT WILL BE DONE . CALL LIGHT WITHIN REACH . ENSURE PT'S SAFETY . PUT PT ON FALL PREVENTION MEASURES . WILL CONT. TO MONITOR . PER PT HE IS SO HUNGRY - WILL FEED PT .PER PT HE GOT BACLOFEN P.O AT ER BUT PER HIM HE USUALLY TAKING 40MG / TABS OF BACLOFEN - WILL REFER TO DR. EISENBERG .
--- NOTE | 2022-09-30 22:40 | NUR ---
CHARGE NURSE KIN . RN REFERRED PT. TO DR. EISENBERG ABOUT THE DOSE OF BACLOFEN . PER DR. EISENBERG GIVE ANOTHER 20MG BACLOFEN NOW - WILL CARRY OUT .
[2022-09-30] MEDS ORDERED: BACL10TA4 PO (22:42)
[2022-10-01] VITALS: BP 116/70
--- NOTE | 2022-10-01 03:21 | NUR ---
REFUSED TO TURN
[2022-10-01 04:00] VITALS: BP 130/75
--- NOTE | 2022-10-01 04:00 | NUR ---
REFUSED TO TURN , HE REQUESTED HE WANTS TO REST AND SLEEP W/O INTERRUPTIONS FOR AWHILE , WILL RE VISIT OFTEN .
[2022-10-01] MEDS: BACLOFEN 10 MG TAB PO SCH ×3 (06:42→21:10)
[2022-10-01] MEDS: MIDODRINE 5 MG TAB NG SCH ×3 (06:48→21:00)
--- NOTE | 2022-10-01 06:55 | NUR ---
C/O PAIN - REFUSED MORPHINE TIV - WILL ENDORSE .
--- NOTE | 2022-10-01 07:30 | NUR ---
ENDORSED PT FOR . CONT. OF CARE . AWAKE . ENDORSED TO AM NURSE TO FF UP W/ VALIDATION MANAGER ABOUT THE AM CARE OF THE PT . THE AM NURSE JONATHON SAID HE WILL REFER THE PT'S PAIN TO .
[2022-10-01 08:00] VITALS: BP 137/78
[2022-10-01 08:12] LABS: BASOPHILS # (AUTO) 0.1 K/uL (0.00-0.22); BASOPHILS % (AUTO) 0.6 % (0.0-2.0); EOSINOPHILS # (AUTO) 0.3 K/uL (0-0.4); EOSINOPHILS % (AUTO) 3.3 % (0.0-4.0); HEMATOCRIT 25.2 % (36-52); HEMOGLOBIN 7.9 g/dL (12.0-18.0); LYMPHOCYTES # (AUTO) 1.2 K/uL (2.0-11.5); LYMPHOCYTES % (AUTO) 13.4 % (20.5-51.1); MEAN CORPUSCULAR HEMOGLOBIN 22 pg (27-31); MEAN CORPUSCULAR HGB CONC 31 g/dL (33-37); MONOCYTES # (AUTO) 1.2 K/uL (0.8-1.0); MONOCYTES % (AUTO) 14.2 % (1.7-9.3); NEUTROPHILS # (AUTO) 5.9 K/uL (1.8-7.7); NEUTROPHILS % (AUTO) 68.5 % (42.2-75.2); PLATELET COUNT (AUTO) 523 K/uL (140-450); RED BLOOD CELL COUNT(AUTO) 3.65 MIL/uL (4.20-6.10); RED CELL DISTRIBUTION WIDTH 18.8 % (11.6-13.7); WHITE BLOOD COUNT (AUTO) 8.7 K/uL (4.8-10.8)
--- NOTE | 2022-10-01 08:49 | NUR ---
PATIENT HAS BEEN SCREENED AND CATEGORIZED HIGH NUTRITION RISK. PATIENT WILL BE SEEN WITHIN 1-2 DAYS OF ADMISSION. 10/01/22-10/02/22 [facility] CONSULT AND REFERRAL RECEIVED FOR WOUNDS/PRESSURE ULCERS AND UNHEALED WOUND ON 10/01/22. REVIEWED BY MAURY MEZA RD
[2022-10-01] MEDS ORDERED: BACLOFEN 10 MG TAB PO SCH (09:00)
[2022-10-01] MEDS ORDERED: FERROUS SULFATE 325 MG TABEC PO SCH (09:00)
[2022-10-01] MEDS: QUEtiapine FUMARATE 100 MG TAB PO SCH ×2 (09:06→21:10)
--- NOTE | 2022-10-01 09:57 | NUR ---
PT. IS AAX4, PT. ADMITTED WITH SACRALCOCCYX PRESSURE INJURY PER H&P. PT REFUSES TO BE TURNED/ SKIN ASSESSMENT AND REFUSES WOUND CONSULT. RISKS AND BENEFITS EXPLAINED PT. CONTINUE TO REFUSE. PRIMARY RN JONATHON NOTIFIED. DR. EISENBERG NOTIFIED AND WILL START WOUND CARE PER PROTOCOL AT THIS TIME. -CLEANSE SACRALCOCCYX WOUND WITH NS, PAT DRY, APPLY OIL EMULSION DRESSING ,COVER WITH DRY DRESSING QD AND PRN IF SOILING -POSITIONING: TURN AND REPOSITION PATIENT Q 2H OR SOONER USE PILLOWS TO KEEP BONY PROMINENCES FROM DIRECT CONTACT WITH SURFACES USE REPOSITIONING WEDGES TO PROVIDE 30-DEGREE ANGLE FOR SIDE LYING POSITIONS OFFLOADING OR FOAM DRESSING TO ALL TUBING TO PREVENT MEDICAL DEVICES RELATED PRESSURE INJURY -RE-EVALUATING AND MANAGING INCONTINENCE MONITOR SKIN CONDITION DURING POSITION CHANGE DO NOT MASSAGE REDNESS, BONY PROMINENCES FREQUENT AKHIL-CARE AND PROVIDE BARRIER CREAMS PRN IF SOILING MOISTURE CONTROL BY OFFER BED OCASIO/URINAL /ABSORBENT PAD TO WICK AND HOLD MOISTURE KEEP SKIN DRY AND PROTECT FROM FRICTION -MANAGE FRICTION/SHEAR/MOBILITY KEEP HOB AT THE LOWEST LEVEL OF ELEVATION NO MORE THAN 30 DEGREE UNLESS OTHERWISE CONTRAINDICATED USE LIFT SHEET OR TRANSFER DEVICE TO MOVE PATIENT AND PREVENT LATERAL SHEER. PROTECT HEELS, ELBOWS BONY PROMINENCES WITH SKIN BERRIES OR FOAM DRESSING IF EXPOSED TO FRICTION OFFLOAD BILATERAL HEELS BY PLACING PILLOWS UNDER CALVES AT ALL TIMES, UNLESS OTHERWISE CONTRAINDICATED -PRESSURE REDISTRIBUTION SURFACE THERAPY MARK ISOFLEX ROGELIO MATTRESS -NUTRITION: PLEASE FOLLOW RD RECOMMENDATIONS AND OFFER NUTRITION SUPPLEMENTS IF ORDERED. PLEASE CONTACT WOUND CARE NURSE FOR ANY QUESTION AND CHANGE OF WOUND CONDITION.
[2022-10-01 10:46] LABS: CARBON DIOXIDE 27.9 mmol/L (21-32); CREATININE 0.5 mg/dL (0.6-1.3); POTASSIUM 3.9 mmol/L (3.5-5.1)
[2022-10-01] MEDS: FERROUS SULFATE 325 MG TABEC PO SCH ×2 (11:05→21:09)
[2022-10-01] MEDS: PIPERACILLIN/TAZOBACTAM 3.375 GM in DEXTROSE 5% 50 ML IV SCH ×2 (12:00→18:00)
--- NOTE | 2022-10-01 13:33 | NUR ---
ATTEMPT TO DO SKIN ASSESSMENT/ WOUND ASSESSMENT. PT. REFUSES " DON'T TOUCH ME ". PT WITH BLANKET COVER TO HIS HEAD AND IGNORE THE WOUND CARE NURSE'S EXPLANATIONS.
--- NOTE | 2022-10-01 14:22 | NUR ---
DC PLANNING ATTEMPTED TO MEET WITH PT AT BEDSIDE TO COMPLETE ASSESSMENT, HOWEVER, PT HEAVILY SLEEPING. SW TO FOLLOW
--- NOTE | 2022-10-01 15:04 | NUR ---
10/01/22 RD INITIAL ASSESSMENT COMPLETED PLEASE REFER TO NUTRITION ASSESSMENT UNDER CARE ACTIVITY FOR ESTIMATED NUTRITIONAL NEEDS. 1. CONTINUE REGULAR DIET TOLERATED 2. ENSURE BID PER PT REQUEST -PROVIDES 700 KCAL AND 40 GM PROTEIN DAILY 3. RECOMMEND QUIN BID FOR WOUND SUPPORT -PROVIDES 160 KCAL AND [address] RD TO FOLLOW-UP 3-5 DAYS, MODERATE RISK REVIEWED BY MAURY MEZA RD
[2022-10-01 15:06] LABS: FERRITIN 270 ng/mL (30-400); FOLIC ACID > 20.00 ng/mL (>3.0)
[2022-10-01] MEDS: MORPHINE SULFATE 2 MG/ML SYR IVP PRN (16:26)
--- NOTE | 2022-10-01 21:00 | NUR ---
PT REFUSED VITAL SIGNS CHECK. EXPLAIN RISKS AND BENEFITS X 3, PT STILL REFUSE. MIDODRINE IS NOT ADMINISTERED DUE TO PT REFUSE BLOOD PRESSURE CHECKED.
--- NOTE | 2022-10-02 04:45 | NUR ---
PT REFUSED TO HAVE VITAL SIGNS CHECKED, PT STATED: "GO AWAY FROM ME".
[2022-10-02] MEDS: MIDODRINE 5 MG TAB NG SCH ×3 (05:00→21:00)
--- NOTE | 2022-10-02 05:00 | NUR ---
BACLOFEN SCHEDULED AT 0500, PT DOES NOT WANT TO ANSWER NURSE STIMULI.
--- NOTE | 2022-10-02 05:00 | NUR ---
PROAMATINE IS NOT ADMINISTERED. PT REFUSED BLOOD PRESSURE/VITAL SIGNS CHECK.
--- NOTE | 2022-10-02 05:30 | NUR ---
PT REFUSE TO WAKE AND TAKE BACLOFEN MEDICATION.
[2022-10-02] MEDS: PIPERACILLIN/TAZOBACTAM 3.375 GM in DEXTROSE 5% 50 ML IV SCH ×4 (05:51→12:00)
--- NOTE | 2022-10-02 07:00 | NUR ---
APPROACHED PT, PT DOES NOT WANT TO OPEN HIS EYES, HE STATED THAT HE REFUSED BACLOFEN.
--- NOTE | 2022-10-02 07:00 | NUR ---
EXPLAINED TO PT THE RISKS AND BENEFITS, PT CONTINUE TO REFUSED.
--- NOTE | 2022-10-02 07:05 | NUR ---
PT AGREE TO TAKE BACLOFEN WITH DAY SHIFT NURSE, WHEN HE AWAKE. ENDORSE TO DAY SHIFT NURSE REGARDING BACLOFEN.
[2022-10-02 07:24] LABS: BASOPHILS # (AUTO) 0.1 K/uL (0.00-0.22); BASOPHILS % (AUTO) 0.9 % (0.0-2.0); EOSINOPHILS # (AUTO) 0.3 K/uL (0-0.4); HEMATOCRIT 25.8 % (36-52); HEMOGLOBIN 8.2 g/dL (12.0-18.0); LYMPHOCYTES # (AUTO) 1.5 K/uL (2.0-11.5); LYMPHOCYTES % (AUTO) 16.7 % (20.5-51.1); MEAN CORPUSCULAR HEMOGLOBIN 22 pg (27-31); MEAN CORPUSCULAR HGB CONC 32 g/dL (33-37); MEAN CORPUSCULAR VOLUME 68.7 fL (80-94); MONOCYTES % (AUTO) 11.6 % (1.7-9.3); NEUTROPHILS % (AUTO) 67.8 % (42.2-75.2); PLATELET COUNT (AUTO) 550 K/uL (140-450); RED BLOOD CELL COUNT(AUTO) 3.76 MIL/uL (4.20-6.10); WHITE BLOOD COUNT (AUTO) 8.8 K/uL (4.8-10.8)
[2022-10-02 07:37] LABS: ANION GAP 10.5 (8-16); CARBON DIOXIDE 29.4 mmol/L (21-32); CREATININE 0.5 mg/dL (0.6-1.3); POTASSIUM 4.9 mmol/L (3.5-5.1)
[2022-10-02] MEDS: FERROUS SULFATE 325 MG TABEC PO SCH ×2 (09:08→21:00)
[2022-10-02] MEDS: QUEtiapine FUMARATE 100 MG TAB PO SCH ×2 (09:08→21:00)
[2022-10-02] MEDS: BACLOFEN 10 MG TAB PO SCH ×3 (09:10→21:40)
--- NOTE | 2022-10-02 19:25 | NUR ---
RECEIVED PT FROM AM NURSE FOR CONTINUITY OF CARE. PT IS STABLE
--- NOTE | 2022-10-02 21:00 | NUR ---
PATIENT WANTS TO TAKE ONLY BACLOFEN
--- NOTE | 2022-10-03 01:00 | NUR ---
PATIENT ASLEEP, NO DISTRESS NOTED
[2022-10-03] MEDS: MIDODRINE 5 MG TAB NG SCH ×3 (05:00→20:47)
--- NOTE | 2022-10-03 05:00 | NUR ---
PATIENT REFUSED VITAL SIGNS
[2022-10-03] MEDS: BACLOFEN 10 MG TAB PO SCH ×3 (05:04→20:47)
--- NOTE | 2022-10-03 05:35 | NUR ---
WAS ABLE TO INSERT NEW IV ON RIGHT HAND 22G
[2022-10-03] MEDS: MORPHINE SULFATE 2 MG/ML SYR IVP PRN ×3 (05:45→20:55)
[2022-10-03] MEDS: PIPERACILLIN/TAZOBACTAM 3.375 GM in DEXTROSE 5% 50 ML IV SCH ×5 (06:00→18:02)
[2022-10-03 07:07] LABS: BASOPHILS # (AUTO) 0.1 K/uL (0.00-0.22); BASOPHILS % (AUTO) 0.6 % (0.0-2.0); EOSINOPHILS # (AUTO) 0.2 K/uL (0-0.4); EOSINOPHILS % (AUTO) 1.4 % (0.0-4.0); HEMATOCRIT 28.6 % (36-52); HEMOGLOBIN 9.1 g/dL (12.0-18.0); LYMPHOCYTES # (AUTO) 1.9 K/uL (2.0-11.5); LYMPHOCYTES % (AUTO) 17.2 % (20.5-51.1); MEAN CORPUSCULAR HEMOGLOBIN 22 pg (27-31); MEAN CORPUSCULAR HGB CONC 32 g/dL (33-37); MEAN CORPUSCULAR VOLUME 68.4 fL (80-94); MONOCYTES # (AUTO) 0.9 K/uL (0.8-1.0); MONOCYTES % (AUTO) 7.8 % (1.7-9.3); PLATELET COUNT (AUTO) 652 K/uL (140-450); RED BLOOD CELL COUNT(AUTO) 4.19 MIL/uL (4.20-6.10); WHITE BLOOD COUNT (AUTO) 10.9 K/uL (4.8-10.8)
--- NOTE | 2022-10-03 07:10 | NUR ---
RECEIEVED PATIENT FROM PM NURSE FOR CONTINUATION OF CARE. PATIENT SEEN ON BED ASLEEP. NORMAL RISE AND FALL OF CHEST. CARE PLAN REVIEWED, PATIENT CARE CONTINUED.
--- NOTE | 2022-10-03 07:10 | NUR ---
ENDORSED PT TO AM NURSE FOR CONTINUITY OF CARE.PT IS STABLE
[2022-10-03 07:16] LABS: CARBON DIOXIDE 30.5 mmol/L (21-32); CREATININE 0.5 mg/dL (0.6-1.3); POTASSIUM 4.5 mmol/L (3.5-5.1)
[2022-10-03 08:00] VITALS: BP 110/70
[2022-10-03] MEDS: FERROUS SULFATE 325 MG TABEC PO SCH ×2 (09:28→20:47)
[2022-10-03] MEDS: QUEtiapine FUMARATE 100 MG TAB PO SCH ×2 (09:29→20:48)
--- NOTE | 2022-10-03 10:55 | NUR ---
COMPLAINED OF PAIN. MORPHOINE GIVEN
--- NOTE | 2022-10-03 11:55 | NUR ---
PAIN REASSESSMENT. PAINSCORE 0/10
--- NOTE | 2022-10-03 16:00 | NUR ---
PERFORMED WOUND DRESSING ON PATIENT.
[2022-10-03 17:53] VITALS: BP 111/27
--- NOTE | 2022-10-03 19:10 | NUR ---
ENDORSED PATIENT TO PM NURSE FOR CONTINUATION OF CARE.
--- NOTE | 2022-10-03 19:20 | NUR ---
RECEIVED PT FROM AM NURSE FOR CONTINUITY OF CARE. MPT IS STABLE
[2022-10-03 20:00] VITALS: BP 118/76
[2022-10-04] MEDS: PIPERACILLIN/TAZOBACTAM 3.375 GM in DEXTROSE 5% 50 ML IV SCH ×4 (00:03→18:00)
--- NOTE | 2022-10-04 01:00 | NUR ---
PATIENT'S IV ON LEFT HAND CAME OFF. PT WANTS NEW IV LATER
--- NOTE | 2022-10-04 04:45 | NUR ---
ATTEMPTED TO INSERT A NEW IV SITE BUT THE PATIENT REFUSED. EXPLAINED THE IMPORTANCE OF HAVING AN IV LINE BUT THE PATIENT SAID HE WANTS A PICC LINE . WILL ENDORSE TO AM NURSE.
[2022-10-04] MEDS: MIDODRINE 5 MG TAB NG SCH ×3 (05:00→21:00)
[2022-10-04] MEDS: BACLOFEN 10 MG TAB PO SCH ×3 (05:16→21:14)
--- NOTE | 2022-10-04 05:17 | NUR ---
EXPLAINED TO THE PATIENT THAT HE IS GOING TO A SURGERY TODAY AT 1 PM AND HE NEEDS TO HAVE AN IV LINE BUT STILL REFUSED AND SAID HE DOESNT CARE ABOUT THE SURGERY.
[2022-10-04 06:50] LABS: BASOPHILS # (AUTO) 0.1 K/uL (0.00-0.22); BASOPHILS % (AUTO) 0.9 % (0.0-2.0); EOSINOPHILS # (AUTO) 0.2 K/uL (0-0.4); EOSINOPHILS % (AUTO) 1.8 % (0.0-4.0); HEMOGLOBIN 8.5 g/dL (12.0-18.0); LYMPHOCYTES # (AUTO) 1.6 K/uL (2.0-11.5); LYMPHOCYTES % (AUTO) 14.1 % (20.5-51.1); MEAN CORPUSCULAR HEMOGLOBIN 22 pg (27-31); MEAN CORPUSCULAR HGB CONC 31 g/dL (33-37); MEAN CORPUSCULAR VOLUME 68.5 fL (80-94); MONOCYTES % (AUTO) 8.5 % (1.7-9.3); NEUTROPHILS # (AUTO) 8.4 K/uL (1.8-7.7); NEUTROPHILS % (AUTO) 74.7 % (42.2-75.2); PLATELET COUNT (AUTO) 568 K/uL (140-450); RED BLOOD CELL COUNT(AUTO) 3.93 MIL/uL (4.20-6.10); RED CELL DISTRIBUTION WIDTH 19.2 % (11.6-13.7); WHITE BLOOD COUNT (AUTO) 11.3 K/uL (4.8-10.8)
[2022-10-04 06:58] LABS: ANION GAP 10.9 (8-16); CARBON DIOXIDE 29.3 mmol/L (21-32); CREATININE 0.6 mg/dL (0.6-1.3); POTASSIUM 4.2 mmol/L (3.5-5.1)
--- NOTE | 2022-10-04 07:15 | NUR ---
endorsed pt to am nurse for continuity of care. pt is stable
--- NOTE | 2022-10-04 07:20 | NUR ---
RECEIVED PATIENT FROM PM NURSE FOR CONTINUATION OF CARE. PT SEEN ON BED ASLEEP. NORMAL RISE AND FALL OF CHEST. PATIENT CARE PLAN SEEN. PATIENT CARE CONTINUED.
[2022-10-04 07:24] LABS: PROTHROMBIN TIME 11.5 secs (10.8-13.4)
[2022-10-04 08:00] VITALS: BP 155/76
[2022-10-04] MEDS: FERROUS SULFATE 325 MG TABEC PO SCH ×2 (09:52→21:13)
[2022-10-04] MEDS: QUEtiapine FUMARATE 100 MG TAB PO SCH ×2 (09:52→21:14)
--- NOTE | 2022-10-04 10:08 | NUR ---
Pt. schedule for wound debridement today. poc discussed with pt. will visit pt. s/p debridement. pt. verbalizes understanding. primary RN Odell at bed side and explains consent to pt.
--- NOTE | 2022-10-04 11:00 | NUR ---
PATIENT FOR PICC LINE
[2022-10-04] MEDS ORDERED: BUPIVACAINE-MPF/EPI 0.25% 10 ML VIAL INJ ONE (11:40)
[2022-10-04] MEDS ORDERED: LIDOCAINE MPF 1% 10 ML ONE (11:40)
[2022-10-04] MEDS ORDERED: PIPERACILLIN/TAZOBACTAM 3.375 GM VIAL IV ONE (11:43)
[2022-10-04] MEDS ORDERED: fentaNYL citrate 0.05 MG/ML VIAL ONE (11:59)
--- NOTE | 2022-10-04 12:00 | NUR ---
PATIENT TRANSPORTED TO OR FOR DEBRIDEMENT
[2022-10-04] MEDS ORDERED: PROPOFOL 200 MG/20 ML VIAL IV ONE (12:25)
[2022-10-04] MEDS ORDERED: SEVOFLURANE 250 ML BTL INH ONE (12:35)
--- NOTE | 2022-10-04 12:36 | NUR ---
10/04/22 RD FOLLOW UP COMPLETED PLEASE REFER TO NUTRITION ASSESSMENT UNDER CARE ACTIVITY FOR ESTIMATED NUTRITIONAL NEEDS. 1. MONITOR NPO STATUS 2. WHEN/IF MEDICALLY APPROPRIATE, CONTINUE REGULAR DIET WITH ENSURE BID PER PT REQUEST AND QUIN BID FOR WOUND SUPPORT -ENSURE BID PROVIDES 700 KCAL AND 40 GM PROTEIN DAILY -QUIN BID PROVIDES 160 KCAL AND [address] RD TO FOLLOW-UP 3-5 DAYS, MODERATE RISK REVIEWED BY MAURY MEZA RD
[2022-10-04] MEDS ORDERED: PHENYLEPHRINE 10 MG/ML VIAL ONE (12:55)
[2022-10-04] MEDS ORDERED: diphenhydrAMINE 50 MG/ML VIAL IVP PRN (13:15)
[2022-10-04] MEDS: LACTATED RINGERS 1,000 ML IV SCH ×2 (13:15→21:35)
[2022-10-04] MEDS ORDERED: MEPERIDINE 25 MG/ML SYR IVP PRN (13:15)
[2022-10-04] MEDS ORDERED: HYDROmorphone 1 MG/ML AMP IVP PRN (13:15)
[2022-10-04] MEDS ORDERED: ONDANSETRON 4 MG/2 ML VIAL IVP PRN (13:15)
--- NOTE | 2022-10-04 15:00 | NUR ---
PATIENT RETURNS TO UNIT
[2022-10-04 18:24] VITALS: BP 96/57
--- NOTE | 2022-10-04 19:10 | NUR ---
PATIENT IS ENDORSED TO PM NURSE FOR CONTINUATION OF CARE.
[2022-10-04 20:00] VITALS: BP 124/82
--- NOTE | 2022-10-04 21:00 | NUR ---
PROAMATINE NOT ADMINISTERED DUE TO PT BLOOD PRESSURE 124/82.
[2022-10-04] MEDS: MORPHINE SULFATE 2 MG/ML SYR IVP PRN (21:07)
[2022-10-05] MEDS: PIPERACILLIN/TAZOBACTAM 3.375 GM in DEXTROSE 5% 50 ML IV SCH ×4 (00:56→18:31)
[2022-10-05 04:00] VITALS: BP 107/74
[2022-10-05] MEDS: MIDODRINE 5 MG TAB NG SCH ×3 (05:00→21:00)
[2022-10-05] MEDS: BACLOFEN 10 MG TAB PO SCH ×3 (05:00→21:42)
[2022-10-05] MEDS: LACTATED RINGERS 1,000 ML IV SCH (05:55)
[2022-10-05 06:37] LABS: BASOPHILS # (AUTO) 0.1 K/uL (0.00-0.22); BASOPHILS % (AUTO) 1.1 % (0.0-2.0); EOSINOPHILS # (AUTO) 0.3 K/uL (0-0.4); EOSINOPHILS % (AUTO) 3.3 % (0.0-4.0); HEMOGLOBIN 7.7 g/dL (12.0-18.0); LYMPHOCYTES # (AUTO) 1.4 K/uL (2.0-11.5); LYMPHOCYTES % (AUTO) 16.4 % (20.5-51.1); MEAN CORPUSCULAR HEMOGLOBIN 22 pg (27-31); MEAN CORPUSCULAR HGB CONC 32 g/dL (33-37); MEAN CORPUSCULAR VOLUME 68.5 fL (80-94); MONOCYTES # (AUTO) 0.7 K/uL (0.8-1.0); MONOCYTES % (AUTO) 8.5 % (1.7-9.3); NEUTROPHILS % (AUTO) 70.7 % (42.2-75.2); PLATELET COUNT (AUTO) 489 K/uL (140-450); RED CELL DISTRIBUTION WIDTH 18.7 % (11.6-13.7); WHITE BLOOD COUNT (AUTO) 8.5 K/uL (4.8-10.8)
[2022-10-05 06:45] LABS: ANION GAP 8.8 (8-16); CREATININE 0.6 mg/dL (0.6-1.3); POTASSIUM 3.8 mmol/L (3.5-5.1)
--- NOTE | 2022-10-05 07:14 | NUR ---
RECEIVED PATIENT FORM PM NURSE FOR CONTINUATION OF CARE
[2022-10-05 08:00] VITALS: BP 151/93
[2022-10-05] MEDS: FERROUS SULFATE 325 MG TABEC PO SCH ×2 (09:54→21:42)
[2022-10-05] MEDS: QUEtiapine FUMARATE 100 MG TAB PO SCH ×2 (09:54→21:43)
[2022-10-05] MEDS: MORPHINE SULFATE 2 MG/ML SYR IVP PRN ×2 (11:44→18:52)
[2022-10-05 16:00] VITALS: BP 151/80
--- NOTE | 2022-10-05 19:10 | NUR ---
ANGEL PATIENT TO PM NURSE FOR CONTINUATION OF CARE
--- NOTE | 2022-10-05 19:11 | NUR ---
RECEIVED ENDORSEMENT FROM DAY SHIFT NURSE FOR CONTINUITY OF CARE. PT IS ON BED RESTING AND REFUSED TO RESPONSE. PT STATED WANTS TO BE ALONE.
[2022-10-05 20:00] VITALS: BP 99/46
--- NOTE | 2022-10-05 20:00 | NUR ---
PT ON BED, APPROACHED PT FOR VITAL SIGNS, PT REFUSED AT THIS TIME. PT WANTS TO REST.
--- NOTE | 2022-10-05 21:47 | NUR ---
EXPLAINED RISKS AND BENEFITS OF MIDODRINE X 3, PT STILL REFUSE TO TAKE IT. B/P = 99/46.
--- NOTE | 2022-10-05 21:47 | NUR ---
PT REFUSED TO TAKE MIDODRINE MEDICATION.
--- NOTE | 2022-10-05 23:30 | NUR ---
PT IS STILL AWAKE AND VERBALIZED OF HUNGRY. PT STATED HE WILL SLEEP AFTER HE HAS SOMETHING TO EAT. PT HAVE TURKEY SANDWICH.
[2022-10-06] MEDS: MORPHINE SULFATE 2 MG/ML SYR IVP PRN ×4 (00:01→21:30)
--- NOTE | 2022-10-06 00:01 | NUR ---
PT COMPLAINTS OF BACK PAIN 10/23, PAIN MEDICATION MORPHINE ADMINISTERED ORDER.
[2022-10-06] MEDS: PIPERACILLIN/TAZOBACTAM 3.375 GM in DEXTROSE 5% 50 ML IV SCH ×4 (00:03→17:35)
--- NOTE | 2022-10-06 00:30 | NUR ---
PT IS ASLEEP.
--- NOTE | 2022-10-06 02:30 | NUR ---
PT SLEEPING WELL, NO SOB OR DISTRESS.
--- NOTE | 2022-10-06 05:30 | NUR ---
PT REFUSE TO HAVE VITAL SIGNS CHECK. EXPLAINS RISKS AND BENEFITS X 3, PT STILL REFUSE TO CHECK HIS VITAL SIGNS.
[2022-10-06] MEDS: BACLOFEN 10 MG TAB PO SCH ×3 (05:45→20:20)
[2022-10-06] MEDS: MIDODRINE 5 MG TAB NG SCH ×3 (05:45→20:30)
--- NOTE | 2022-10-06 05:45 | NUR ---
PT REFUSE TO TAKE HIS 0500 MEDICATIONS AT THIS TIME. EXPLAINS RISKS AND BENEFITS X 3, PT STILL REFUSE.
--- NOTE | 2022-10-06 05:45 | NUR ---
PT REFUSE TO HAVE HIS VITAL SIGNS CHECKED.
--- NOTE | 2022-10-06 06:35 | NUR ---
APPROACH PT AND OFFER MORNING MEDICATION BACLOFEN TO TAKE, PT REFUSED AND STATED THAT HE WILL TAKE LATER WITH MORNING OR DAY SHIFT NURSE. PT ALSO REFUSED TO HAVE VITAL SIGNS CHECKED. WILL ENDORSE TO DAY SHIFT TO FOLLOW UP WITH PT.
--- NOTE | 2022-10-06 07:36 | NUR ---
PT IS ON BED SLEEPING AND ON STABLE CONDITION. ENDORSE TO DAY SHIFT NURSE JOSE FOR CONTINUITY OF CARE. ENDORSE ALSO ABOUT VITAL SIGNS AND MORNING MEDICATION THAT PT REFUSED.
[2022-10-06 08:00] VITALS: BP 103/50
[2022-10-06] MEDS: QUEtiapine FUMARATE 100 MG TAB PO SCH ×2 (09:00→20:30)
[2022-10-06] MEDS: FERROUS SULFATE 325 MG TABEC PO SCH ×2 (09:43→20:30)
--- NOTE | 2022-10-06 09:49 | NUR ---
SCHEDULED MEDICATIONS DUE GIVEN. SEROQUEL NOT GIVEN, PT REFUSED. WILL CONTINUE TO MONITOR.
--- NOTE | 2022-10-06 10:01 | NUR ---
WOUND CARE NOTE: SKIN ASSESSMENT DONE WITH PRIMARY RN JSOE. S/P DEBRIDEMENT WOUND PHOTO OBTAINED BY PRIMARY RN. PT. IS AAX4, PT COOPERATE WITH SKIN ASSESSMENT AND WOUND CARE. PER PT. LEFT HEEL UN-STAGEABLE ULCER HAS BEEN THERE FOR MONTHS. POC DISCUSSED WITH PT. PT. VERBALIZES UNDERSTANDING. PT. REFUSES FOAM DRESSING TO HIPS, SPINAL BONY AREAS, PT. REFUSES HEEL RAISERS. PT. REFUSES JUVAN SUPPLEMENT. POC DISCUSSED WITH DR. NOEL AND RECOMMEND HOME HEALTH FOR WOUND CARE. PT. WITH LOW ALAN SCALE AT VERY HIGH RISK FOR NEW SKIN BREAKS, CONTINUE TO FOLLOW PRESSURE INJURY PREVENTION INTERVENTIONS. INTEGUMENTARY: -LIPS AND ORAL MUCOSA DRY AND CLEAN. SKIN INTACT. -SUPRAPUBIC CATH,AKHIL-STOMA SKIN DRY AND CLEAN. -PRESSURE INJURY STAGE 2 LOWER LUMBAR 1X1X0.1CM WOUND BED IS 100% PINK TISSUE, MOIST, NO ODOR, AKHIL WOUND SKIN SCAR TISSUE INTACT. -PRESSURE INJURY STAGE 4, SACROCOCCYX [id number], UNDERMINING TO 12 O'CLOCK DIRECTION 3 CM DEEP. WOUND BED 30% RED GRANULATION TISSUE, 70% YELLOW SLOUGH TISSUE.MODERATE AMOUNT SEROUS DRAINAGE WITH NO ODOR AFTER RINSE WITH NS. WOUND EDGE FLAT, AKHIL-WOUND SKIN PARTIAL THICKNESS SKIN LOSS, 100% RED GRANULATION TISSUE SURROUNDING NON-BLANCHABLE REDNESS INDICATED FURTHER DAMAGE -PRESSURE INJURY STAGE 4, RIGHT ISCHIAL [id number] WOUND BED IS RED 100% GRANULATING TISSUE, MOIST, NO ODOR, AKHIL WOUND SKIN SCAR TISSUE INTACT. -PRESSURE INJURY UN-STAGEABLE, LEFT HEEL 3X2CM 100% BROWN STABLE SCAB TISSUE, DRY, NO ODOR, AKHIL WOUND DRY, PEELING SKIN. RECOMMENDATIONS: -CLEANSE LOWER LUMBAR, SACRALCOCCYX AND RIGHT ISCHIAL WOUNDS WITH NS, PAT DRY, PACK WOUNDS WITH ALGINATE DRESSING AND COVER WITH DRY DRESSING QD AND PRN IF SOILING -PAINT LEFT HEEL WITH BETADINE SWAP STICK BID AND GORDON -POSITIONING: TURN AND REPOSITION PATIENT Q 2H OR SOONER USE PILLOWS TO KEEP BONY PROMINENCES FROM DIRECT CONTACT WITH SURFACES USE REPOSITIONING WEDGES TO PROVIDE 30-DEGREE ANGLE FOR SIDE LYING POSITIONS OFFLOADING OR FOAM DRESSING TO ALL TUBING TO PREVENT MEDICAL DEVICES RELATED PRESSURE INJURY -RE-EVALUATING AND MANAGING INCONTINENCE MONITOR SKIN CONDITION DURING POSITION CHANGE DO NOT MASSAGE REDNESS, BONY PROMINENCES FREQUENT AKHIL-CARE AND PROVIDE BARRIER CREAMS PRN IF SOILING MOISTURE CONTROL BY OFFER BED OCASIO/URINAL /ABSORBENT PAD TO WICK AND HOLD MOISTURE KEEP SKIN DRY AND PROTECT FROM FRICTION -MANAGE FRICTION/SHEAR/MOBILITY KEEP HOB AT THE LOWEST LEVEL OF ELEVATION NO MORE THAN 30 DEGREE UNLESS OTHERWISE CONTRAINDICATED USE LIFT SHEET OR TRANSFER DEVICE TO MOVE PATIENT AND PREVENT LATERAL SHEER. PROTECT HEELS, ELBOWS BONY PROMINENCES WITH SKIN BERRIES OR FOAM DRESSING IF EXPOSED TO FRICTION OFFLOAD BILATERAL HEELS BY PLACING PILLOWS UNDER CALVES AT ALL TIMES, UNLESS OTHERWISE CONTRAINDICATED -PRESSURE REDISTRIBUTION SURFACE THERAPY MARK ISOFLEX MATTRESS -NUTRITION: PLEASE FOLLOW RD RECOMMENDATIONS AND OFFER NUTRITION SUPPLEMENTS IF ORDERED. PLEASE CONTACT WOUND CARE NURSE FOR ANY QUESTION AND CHANGE OF WOUND CONDITION.
--- NOTE | 2022-10-06 12:26 | NUR ---
SCHEDULED IV ZOSYN GIVEN AT THIS TIME. REFUSED SCHEDULED PO MEDICATIONS. WILL CONTINUE TO MONITOR.
[2022-10-06] MEDS: ALGINATE DRESSING MC SCH (13:16)
[2022-10-06] MEDS: GAUZE TP SCH (13:16)
--- NOTE | 2022-10-06 13:48 | NUR ---
WENT TO BEDSIDE TO ASK WHAT HOME [facility]ALTH AG[facility] PATIENT IS CURRENTLY USING. PATIENT STATED [facility] . CALLED [facility] TO SEE IF THEY ARE STILL WORKING WITH PATIENT THEY CONFIRMED THIS AND ASKED THAT WE FAXED ALL PAPERWORK UPON DISCHARGE.
--- NOTE | 2022-10-06 13:55 | NUR ---
Nursing cleared pt for OT evaluation. Patient was seen in his room, refused to participate with OT evaluation. Pt stated he can do everything so he doesn't need to show me nor participate with evaluation. Explain benefits of OT, pt still refused. Nursing spoke to pt. to encourage, pt still refused. Requested to d/c OT eval order. - Jorge Bianchi, OTR/L
[2022-10-06 16:00] VITALS: BP 104/65
[2022-10-06 17:41] LABS: BARBITURATE, URINE NEGATIVE ng/ml (NEG <=200); BENZODIAZEPINE, URINE NEGATIVE ng/mL (NEG <=200); CANNABINOID, URINE POSITIVE ng/mL (NEG <=50); COCAINE, URINE NEGATIVE ng/mL (NEG <=300)
[2022-10-06 17:42] LABS: OPIATE, URINE POSITIVE ng/mL (NEG <=2000); PHENCYCLIDINE SCREEN,URINE NEGATIVE ng/mL (NEG <=25)
--- NOTE | 2022-10-06 19:20 | NUR ---
GAVE REPORT TO SENIOR ESCROW OFFICER NURSE FOR CONTINUITY OF CARE.
--- NOTE | 2022-10-06 19:25 | NUR ---
RECEIVED REPORT FROM AM NURSE FOR CONTINUITY OF CARE. PT IS STABLE
[2022-10-06 20:00] VITALS: BP 121/76
[2022-10-07] MEDS: PIPERACILLIN/TAZOBACTAM 3.375 GM in DEXTROSE 5% 50 ML IV SCH ×4 (00:07→17:08)
[2022-10-07] MEDS: MORPHINE SULFATE 2 MG/ML SYR IVP PRN ×2 (01:00→09:13)
--- NOTE | 2022-10-07 02:00 | NUR ---
PATIENT ASLEEP, NO DISTRESS NOTED
[2022-10-07] MEDS: MIDODRINE 5 MG TAB NG SCH ×2 (05:00→12:58)
[2022-10-07] MEDS: BACLOFEN 10 MG TAB PO SCH ×2 (05:02→12:58)
[2022-10-07 06:55] LABS: BASOPHILS # (AUTO) 0.1 K/uL (0.00-0.22); BASOPHILS % (AUTO) 1.7 % (0.0-2.0); EOSINOPHILS # (AUTO) 0.3 K/uL (0-0.4); EOSINOPHILS % (AUTO) 3.9 % (0.0-4.0); HEMATOCRIT 25.9 % (36-52); HEMOGLOBIN 8.2 g/dL (12.0-18.0); LYMPHOCYTES # (AUTO) 1.7 K/uL (2.0-11.5); LYMPHOCYTES % (AUTO) 21.7 % (20.5-51.1); MEAN CORPUSCULAR HEMOGLOBIN 22 pg (27-31); MEAN CORPUSCULAR HGB CONC 32 g/dL (33-37); MEAN CORPUSCULAR VOLUME 69.8 fL (80-94); MONOCYTES # (AUTO) 0.5 K/uL (0.8-1.0); MONOCYTES % (AUTO) 6.7 % (1.7-9.3); NEUTROPHILS # (AUTO) 5.2 K/uL (1.8-7.7); PLATELET COUNT (AUTO) 516 K/uL (140-450); RED BLOOD CELL COUNT(AUTO) 3.71 MIL/uL (4.20-6.10); RED CELL DISTRIBUTION WIDTH 19.3 % (11.6-13.7); WHITE BLOOD COUNT (AUTO) 7.9 K/uL (4.8-10.8)
--- NOTE | 2022-10-07 07:15 | NUR ---
RECEIVED REPORT FROM ORTHOPEDIC MECHANIC NURSE FOR CONTINUITY OF CARE. PT IS ASLEEP AWAKEN BY NAME, NO SIGNS OF DISTRESS. CALL FAM WITHIN REACH. WILL CONTINUE TO MONITOR.
[2022-10-07 07:16] LABS: SODIUM SERUM 138 mmol/L (136-145)
[2022-10-07 07:17] LABS: ANION GAP 9.2 (8-16); CARBON DIOXIDE 30.1 mmol/L (21-32); CHLORIDE 103 mmol/L (98-107); GFR ARICAN-AMERICAN 0 mL/min (>90); GLUCOSE 106 mg/dL (74-106); POTASSIUM 4.3 mmol/L (3.5-5.1); TOTAL BILIRUBIN 0.1 mg/dL (0.0-1.0); UREA NITROGEN, BLOOD 16 mg/dL (7-18)
[2022-10-07 07:18] LABS: ALBUMIN 1.7 g/dL (3.4-5.0); ASPARTATE AMINOTRANSFERASE 21 U/L (15-37); MAGNESIUM 2.3 mg/dL (1.8-2.4); PHOSPHORUS 3.4 mg/dL (2.5-4.9)
[2022-10-07 08:00] VITALS: BP 121/76
[2022-10-07] MEDS: QUEtiapine FUMARATE 100 MG TAB PO SCH (08:54)
[2022-10-07] MEDS: FERROUS SULFATE 325 MG TABEC PO SCH (08:55)
[2022-10-07] MEDS: ALGINATE DRESSING MC SCH (13:00)
[2022-10-07] MEDS: GAUZE TP SCH (13:00)
--- NOTE | 2022-10-07 14:01 | NUR ---
10/07/22 RD FOLLOW UP COMPLETED PLEASE REFER TO NUTRITION ASSESSMENT UNDER CARE ACTIVITY FOR ESTIMATED NUTRITIONAL NEEDS. 1. CONTINUE REGULAR DIET WITH ENSURE BID PER PT REQUEST AND QUIN BID FOR WOUND SUPPORT -ENSURE BID PROVIDES 700 KCAL AND 40 GM PROTEIN DAILY -QUIN BID PROVIDES 160 KCAL AND [address] DA[address]. RD TO FOLLOW-UP 7 DAYS, LOW RISK REVIEWED BY MAURY MEZA RD
[2022-10-07] MEDS ORDERED: PIPE1SOL IV (14:29)
[2022-10-07] MEDS ORDERED: Alginate Dressing MC (14:29)
[2022-10-07 15:26] VITALS: BP 127/77
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
--- NOTE | 2022-10-07 18:00 | NUR ---
PT DISCHARGED HOME , DISCHARGE INSTRUCTION IS GIVEN, PT DISCHARGED WITH SUPRAPUBIC CATHETER AND THE LEFT UPPER ARM DOUBLE LUMEN PICC LINE, PT ID BAND REMOVED AND PT LEFT WITH TRANSPORTER WITH OUT SARAHI DISCOMFORT.[id number]
== END 2022-10-07 18:10 | disposition home health service (06) | DRG 570 ==
LOC: MED 15:00 → MMU 19:02 → MTU 20:15
PROVIDERS: ADMIT General Practice; ATTEND General Practice
PROC: 02HV33Z Insertion of Infusion Device into Superior Vena Cava, Percutaneous Approach (ICD-10-PCS; 2022-09-30)
PROC: 0JB70ZZ Excision of Back Subcutaneous Tissue and Fascia, Open Approach (ICD-10-PCS; principal; 2022-10-04 12:30)
DX: L89.154 Pressure ulcer of sacral region, stage 4 (principal); E43 Unspecified severe protein-calorie malnutrition; R53.2 Functional quadriplegia; N39.0 Urinary tract infection, site not specified; Z68.1 Body mass index [BMI] 19.9 or less, adult; I96 Gangrene, not elsewhere classified; J45.909 Unspecified asthma, uncomplicated; F15.90 Other stimulant use, unspecified, uncomplicated; Z20.822 Contact with and (suspected) exposure to COVID-19; L89.329 Pressure ulcer of left buttock, unspecified stage; E86.0 Dehydration; Y83.8 Other surgical procedures as the cause of abnormal reaction of the patient, or of later complication, without mention of misadventure at the time of the procedure; D50.9 Iron deficiency anemia, unspecified; D72.829 Elevated white blood cell count, unspecified; D75.839 Thrombocytosis, unspecified; S31.000A Unspecified open wound of lower back and pelvis without penetration into retroperitoneum, initial encounter; B96.4 Proteus (mirabilis) (morganii) as the cause of diseases classified elsewhere; X58.XXXA Exposure to other specified factors, initial encounter; Z60.2 Problems related to living alone; Z90.49 Acquired absence of other specified parts of digestive tract; Z87.891 Personal history of nicotine dependence; Z79.899 Other long term (current) drug therapy; Z91.199 Patient's noncompliance with other medical treatment and regimen due to unspecified reason; Y93.89 Activity, other specified; Y92.89 Other specified places as the place of occurrence of the external cause; Y99.8 Other external cause status
CPT/HCPCS: 36415; 36556; 71045; 80048; 80053; 80305; 81001; 82607; 82728; 82746; 83036; 83540; 83605; 83735; 84100; 84484; 85025; 85610; 85730; 87040; 87070; 87075; 87081; 87086; 87205; 88304; 93005; 96374; 97163-GP; 99285; J0696; J1170; J2001; J2270; J2370; J2543; J2704; J3010; J3490; J7060; J7120; Q0092

== ENCOUNTER 2022-11-01 16:44 | Inpatient (IN) | payer OTHER ==
[~2022-11-01] VITALS: Ht 182.9 cm; Wt 61.2 kg
[~2022-11-01 16:44] MED LIST changes: +Alginate Dressing MC; +BACL10TA4 PO; +PIPE1SOL IV
[2022-11-01 16:51] VITALS: BP 79/24; PULSE 139; RESP 20; O2SAT 95
[2022-11-01] MEDS ORDERED: NACL 0.9% 1,000 ML IV ONE ×3 (16:55→19:10)
[2022-11-01] MEDS ORDERED: ACETAMINOPHEN 325 MG TAB PO ONE (16:55)
[2022-11-01] MEDS ORDERED: VANCOMYCIN 1,000 MG in DEXTROSE 5% 250 ML IV ONE (16:55)
[2022-11-01] MEDS ORDERED: BACLOFEN 10 MG TAB PO SCH (17:05)
[2022-11-01] MEDS ORDERED: VANCOMYCIN 1,000 MG VIAL ONE (17:16)
[2022-11-01 17:32] LABS: BASOPHILS # (AUTO) 0.1 K/uL (0.00-0.22); BASOPHILS % (AUTO) 0.9 % (0.0-2.0); EOSINOPHILS % (AUTO) 0.1 % (0.0-4.0); HEMATOCRIT 28.7 % (36-52); LYMPHOCYTES # (AUTO) 0.7 K/uL (2.0-11.5); LYMPHOCYTES % (AUTO) 5.4 % (20.5-51.1); MEAN CORPUSCULAR HEMOGLOBIN 21 pg (27-31); MEAN CORPUSCULAR HGB CONC 32 g/dL (33-37); MEAN CORPUSCULAR VOLUME 67.3 fL (80-94); MONOCYTES # (AUTO) 0.9 K/uL (0.8-1.0); NEUTROPHILS % (AUTO) 86.6 % (42.2-75.2); PLATELET COUNT (AUTO) 473 K/uL (140-450); RED BLOOD CELL COUNT(AUTO) 4.26 MIL/uL (4.20-6.10); RED CELL DISTRIBUTION WIDTH 19.1 % (11.6-13.7); WHITE BLOOD COUNT (AUTO) 12.8 K/uL (4.8-10.8)
[2022-11-01 17:34] LABS: BILIRUBIN,URINE 1+ (NEGATIVE); BLOOD, URINE 3+ (NEGATIVE); COLOR,URINE YELLOW (YELLOW); LEUKOCYTE ESTERASE ,URINE 2+ (NEGATIVE); NITRITE, URINE POSITIVE (NEGATIVE); PH,URINE 6.5 (5.0-9.0); UGLUCOSE NEGATIVE (NEGATIVE)
[2022-11-01 17:44] LABS: APPEARANCE,URINE CLOUDY (CLEAR)
[2022-11-01 17:45] LABS: PROTHROMBIN TIME 11.5 secs (10.8-13.4)
[2022-11-01 17:45] LABS: RBC,URINE >100 /HPF (0-5)
[2022-11-01 17:46] LABS: ALBUMIN 1.9 g/dL (3.4-5.0); ANION GAP 10.3 (8-16); CARBON DIOXIDE 28.7 mmol/L (21-32); CREATININE 0.6 mg/dL (0.6-1.3); TOTAL BILIRUBIN 0.5 mg/dL (0.0-1.0)
[2022-11-01] MEDS ORDERED: PIPERACILLIN/TAZOBACTAM 3.375 GM in DEXTROSE 5% 50 ML IV ONE (18:30)
[2022-11-01] MEDS ORDERED: PIPERACILLIN/TAZOBACTAM 3.375 GM VIAL IV ONE (19:06)
--- NOTE | 2022-11-01 19:56 | NUR ---
RUBY PICC LINE RN AT BEDSIDE.
--- NOTE | 2022-11-01 19:58 | NUR ---
PT C/O 12/23 PAIN AND WOULD LIKE PAIN MEDICATION PRIOR TO PUTTING PICC LINE IN. ER MADE AWARE.
[2022-11-01] MEDS ORDERED: fentaNYL citrate 0.05 MG/ML VIAL IVP ONE (20:00)
--- NOTE | 2022-11-01 20:45 | NUR ---
ER MD FONSECA CONFIRMED ABLE TO USE PICC LINE.
--- NOTE | 2022-11-01 20:58 | NUR ---
PER ER MD PATIENT OKAY TO HAVE FOOD. PROVIDED PATIENT SANDWHICH, TALAT CRACKERS, CHOCOLATE PUDDING, APPLE SUACE, AND CRANBERRY JUICE.
[2022-11-01] MEDS ORDERED: NOREPINEPHRINE 4 MG in DEXTROSE 5% 250 ML IV ONE (21:05)
--- NOTE | 2022-11-01 21:05 | NUR ---
PT TO CT VIA [facility]
--- NOTE | 2022-11-01 21:27 | NUR ---
PT BACK FROM CT. ATTACHED PATIENT TO WINDING LATHE OPERATOR AND SAFETY MEASURES ARE IN PLACE.
--- NOTE | 2022-11-01 21:35 | NUR ---
Note dustin in EDM - 11/01/[address] FONSECA AWARE OF PATIENT'S BP TRENDS AT SBP <90 MMHG. PATIENT VERBALIZED HIS BASELINE BP USUALLY AT 90/60 MMHG. -ATFLETCHER
--- NOTE | 2022-11-01 21:35 | NUR ---
PATIENT VERBALIZED HIS BASELINE BP USUALLY AT 90/[address] FONSECA MADE AWARE. START LEVOPHED.
[2022-11-01] MEDS ORDERED: ZOLPIDEM 5 MG TAB PO PRN (22:00)
[2022-11-01] MEDS ORDERED: guaiFENesin DM 200/20 MG-10 ML 10 ML UDC PO PRN (22:00)
[2022-11-01] MEDS ORDERED: ACETAMINOPHEN 325 MG TAB PO PRN (22:00)
[2022-11-01] MEDS ORDERED: POTASSIUM CHLORIDE 10 MEQ TABER PO PRN (22:00)
[2022-11-01] MEDS ORDERED: DOCUSATE SODIUM 100 MG GELCAP PO PRN (22:00)
[2022-11-01] MEDS ORDERED: HYDROcodone/APAP 7.5/325 MG 1 TAB PO PRN (22:00)
[2022-11-01] MEDS ORDERED: ONDANSETRON 4 MG/2 ML VIAL IM/IVP PRN (22:00)
[2022-11-01] MEDS ORDERED: NOREPINEPHRINE 4 MG/4 ML VIAL IV ONE (22:03)
--- NOTE | 2022-11-01 22:16 | NUR ---
Note dustin in EDM - 11/01/22 at 2222 by MED PATIENT VERBALIZED HE DOESN'T WANT THE LEVOPHED HE'S "FEELING FINE WITH NO FAINTING/DIZZINESS/LIGHTHEADEDNESS" AND HIS BASELINE BP IS AROUND 90/[address] FONSECA MADE AWARE. PER DR. FONSECA, DON'T START LEVOPHED.
[2022-11-01 22:21] LABS: MAGNESIUM 1.9 mg/dL (1.8-2.4); PHOSPHORUS 3.2 mg/dL (2.5-4.9)
--- NOTE | 2022-11-01 22:22 | NUR ---
PATIENT REFUSED LEVOPHED. PATIENT VERBALIZED HE DOESN'T WANT BLOOD PRESSURE MEDICATIONS. PER PATIENT, "I'M FEELING FINE RIGHT NOW. I'M NOT DIZZY OR ABOUT TO PASS OUT." DR. FONSECA MADE AWARE. PER DR. FONSECA, HOLD LEVOPHED PER PATIENT'S REQUEST.
--- NOTE | 2022-11-01 22:26 | NUR ---
SPOKE WITH ADMITTING PHYSCIAN DR. ENG IN REGARDS TO PATIENT REFUSING LEVOPHED. UPDATED PATIENT CONDITION IS AAOX4. PER DR CHANGE ORDERS TO 100ML/HR NS IV AND HAVE PT START MIDODRINE 10MG TID PO. WILL CARRY OUT ORDERS.
--- NOTE | 2022-11-01 22:29 | NUR ---
PER DR. ENG KEEP PATIENT TO ICU PT NEEDS TO BE MONITORED.
[2022-11-01] MEDS: NACL 0.9% 1,000 ML IV SCH (23:25)
--- NOTE | 2022-11-01 23:53 | NUR ---
Patient will be admitted to care of Dr. Aldridge. Admited to ICU. Will go to room ICU Room 2. Belongings list completed. Report to Tita STOLL.
[2022-11-02] VITALS (11 sets, daily range): BP systolic 94–128; BP diastolic 61–71; PULSE 80–128; RESP 20–27; TEMP 97.7–98.9; O2SAT 93–97
--- NOTE | 2022-11-02 00:02 | NUR ---
Patient refusing to take pictures of wounds and cleaning of wounds. Per pt already has bandage on the wound and does not want to move. senior energy trader made aware and ICU floor RN made aware.
--- NOTE | 2022-11-02 00:05 | NUR ---
Patient will be admitted to care of Dr. Aldridge. Admited to ICU. Will go to room 2. Belongings list completed. Report to Ayla STOLL.
--- NOTE | 2022-11-02 00:15 | NUR ---
RECEIVED PT FROM ER NURSE JERMAN MCKEON. PT TRANSPORTED VIA GURNEY. PT IS AWAKE, ALERT, AND ORIENTED X4. AFEBRILE. ON ROOM AIR SATURATING AT 95%- NOT IN DISTRESS. ON NPO EXCEPT MEDS. WITH LUNGS CLEAR UPON AUSCULTATION. ON SINUS TACHYCARDIA AT 121 BPM. WITH LEFT IJ ACCESS GAUGE 18 TO SALINE LOCK. WITH RIGHT UPPER ARM PICC LINE WITH DRESSING DRY AND INTACT FLOWING TO NS AT TKO. SKIN NON-INTACT WITH SACRAL ULCER AND LEFT BUTTOCK ULCERATION. WITH SUPRAPUBIC CATHETER DRAINING TO YELLOW CLOUDY URINE OUTPUT. SAFELY TRANSFEERED PT IN BED #2. SIDERAILS RAISED UP FOR SAFETY AND HOB TO 30 DEGREES. SAFETY PRECAUTIONS INITIATED AND MAINTAINED. ID BAND APPLIED. HOOKED TO BEDSIDE MONITOR. WILL CLOSELY MONITOR PT.
--- NOTE | 2022-11-02 00:30 | NUR ---
PT WITH EPISODES OF BODY SPASMS. PT STATED HE HAS HOME MEDS OF BACLOFEN 40MG TID. DR. NOEL AND ALBERTINA INFORMED. AWAITING FURTHER ORDERS.
[2022-11-02] MEDS ORDERED: VANCOMYCIN 1GM/DEXT 5% PREMIX 200 ML IV SCH (02:00)
[2022-11-02] MEDS ORDERED: BACLOFEN 10 MG TAB PO SCH (02:50)
--- NOTE | 2022-11-02 02:50 | NUR ---
ORDER IN FOR BACLOFEN 40 MG TID PO - STARTED FIRST DOSE AT ICU AND GIVEN TO PT.
[2022-11-02] MEDS ORDERED: VANCOMYCIN 1,000 MG VIAL ONE (03:38)
--- NOTE | 2022-11-02 04:20 | NUR ---
PT IS AFEBRILE. REFUSED SPONGE BATH AND CHANGING TO HOSPITAL GOWN BUT CONSENTED TO WOUND CARE. WOUND ASSESSMENT DONE WITH ULCERATION NOTED ON SACRAL AREA 11CM X 7 CM, LEFT BUTTOCK ULCER 4CM X 1.5 CM, AND ANOTHER LEFT BUTTOCK SKIN TEAR 2CM X 1CM - PHOTOGRAPHS TAKEN. WOUND CLEANED AND DRESSINGS APPLIED. PERINEAL CARE PROVIDED. BM NOTED ONCE - BROWN, WATERY AND IN SMALL AMOUNT.
[2022-11-02 05:28] LABS: BASOPHILS # (AUTO) 0.1 K/uL (0.00-0.22); BASOPHILS % (AUTO) 0.9 % (0.0-2.0); EOSINOPHILS # (AUTO) 0.1 K/uL (0-0.4); LYMPHOCYTES # (AUTO) 0.9 K/uL (2.0-11.5); LYMPHOCYTES % (AUTO) 12.2 % (20.5-51.1); MEAN CORPUSCULAR HEMOGLOBIN 22 pg (27-31); MEAN CORPUSCULAR HGB CONC 30 g/dL (33-37); MEAN CORPUSCULAR VOLUME 71.8 fL (80-94); MONOCYTES # (AUTO) 0.6 K/uL (0.8-1.0); MONOCYTES % (AUTO) 8.5 % (1.7-9.3); NEUTROPHILS # (AUTO) 5.5 K/uL (1.8-7.7); NEUTROPHILS % (AUTO) 76.4 % (42.2-75.2); PLATELET COUNT (AUTO) 335 K/uL (140-450); RED CELL DISTRIBUTION WIDTH 19.3 % (11.6-13.7); WHITE BLOOD COUNT (AUTO) 7.2 K/uL (4.8-10.8)
[2022-11-02 05:37] LABS: ALBUMIN 1.2 g/dL (3.4-5.0); ANION GAP 8.4 (8-16); CARBON DIOXIDE 23.7 mmol/L (21-32); CREATININE 0.7 mg/dL (0.6-1.3); POTASSIUM 3.1 mmol/L (3.5-5.1); TOTAL BILIRUBIN 0.8 mg/dL (0.0-1.0)
[2022-11-02 05:38] LABS: HEMOGLOBIN 6.9 g/dL (12.0-18.0)
--- NOTE | 2022-11-02 05:38 | NUR ---
CRITICAL LAB IN FOR HEMOGLOBIN 6.9. DR. NOEL MADE AWARE. ACKNOWLEDGED BUT NO FURTHER ORDERS MADE.
--- NOTE | 2022-11-02 06:30 | NUR ---
PT PREFERRED PRONE POSITION- ASSISTED TO POSITION OF COMFORT.
--- NOTE | 2022-11-02 07:00 | NUR ---
PT CURRENTLY SLEEPING ON PRONE POSITION. STILL ON SINUS BRADYCARDIA. NORMOTENSIVE AND AFEBRILE. NOT IN DISTRESS.
--- NOTE | 2022-11-02 07:10 | NUR ---
REPORT GIVEN TO DAYSDCFT NURSE, JERMAN ARTEAGA. ALL QUESTIONS ANSWERED.
--- NOTE | 2022-11-02 07:30 | NUR ---
Received report from fast food shift supervisor nurse JERMAN Cobb. Patient AOx4 able to express needs and wants. No adventitious lung sounds noted upon auscultation. Patient has Right upper arm picc line infusing NS TKO dressing is dry and intact. Left Jugular 18G IV saline locked with dressing dry and intact no redness or infiltration noted. Patient is NPO. Suprapubic catheter to gravity with clear yellow urine with no dependent loops. Sacral pressure sore on patient, wound also on left buttocks. Standard precautions, bed wheels locked and in lowest position.
[2022-11-02] MEDS: NACL 0.9% 1,000 ML IV SCH ×2 (08:15→17:13)
--- NOTE | 2022-11-02 08:25 | NUR ---
Informed Dr. Santiago regarding pt's labs, requested redraw. POC glucose 110 vs lab blood draw 688. Also informed Dr. Santiago regarding pt's request for breakfast tray. New orders made.
--- NOTE | 2022-11-02 08:30 | NUR ---
Dr Santiago rounded at patient bedside. no new orders received. Dr. Santiago stated that patient can be downgraded to telemetry.
[2022-11-02 08:41] LABS: BASOPHILS # (AUTO) 0.1 K/uL (0.00-0.22); EOSINOPHILS # (AUTO) 0.1 K/uL (0-0.4); EOSINOPHILS % (AUTO) 1.5 % (0.0-4.0); HEMATOCRIT 26.7 % (36-52); HEMOGLOBIN 8.4 g/dL (12.0-18.0); LYMPHOCYTES # (AUTO) 0.9 K/uL (2.0-11.5); LYMPHOCYTES % (AUTO) 10.3 % (20.5-51.1); MEAN CORPUSCULAR HEMOGLOBIN 21 pg (27-31); MEAN CORPUSCULAR HGB CONC 32 g/dL (33-37); MEAN CORPUSCULAR VOLUME 67.8 fL (80-94); MONOCYTES # (AUTO) 0.6 K/uL (0.8-1.0); MONOCYTES % (AUTO) 7.4 % (1.7-9.3); NEUTROPHILS # (AUTO) 6.6 K/uL (1.8-7.7); NEUTROPHILS % (AUTO) 79.8 % (42.2-75.2); PLATELET COUNT (AUTO) 368 K/uL (140-450); RED BLOOD CELL COUNT(AUTO) 3.94 MIL/uL (4.20-6.10); RED CELL DISTRIBUTION WIDTH 19.1 % (11.6-13.7); WHITE BLOOD COUNT (AUTO) 8.3 K/uL (4.8-10.8)
[2022-11-02 08:51] LABS: CARBON DIOXIDE 28.6 mmol/L (21-32); CREATININE 0.4 mg/dL (0.6-1.3); POTASSIUM 3.6 mmol/L (3.5-5.1)
[2022-11-02] MEDS: VANCOMYCIN PER PHARMACY MC SCH (09:00)
--- NOTE | 2022-11-02 09:19 | NUR ---
PATIENT HAS BEEN SCREENED AND CATEGORIZED HIGH NUTRITION RISK. PATIENT WILL BE SEEN WITHIN 1-2 DAYS OF ADMISSION. 11/02/22-11/03/22 FNS REFERRAL RECEIVED FOR PRESSURE ULCER ON 11/02/22. CASSIE NICOLE [address]
[2022-11-02] MEDS: PIPERACILLIN/TAZOBACTAM 3.375 GM in DEXTROSE 5% 50 ML IV SCH ×3 (09:32→20:49)
[2022-11-02] MEDS: MIDODRINE 5 MG TAB PO SCH ×4 (09:37→17:11)
[2022-11-02] MEDS: PANTOPRAZOLE 40 MG TABEC PO SCH (09:37)
[2022-11-02] MEDS: QUEtiapine FUMARATE 100 MG TAB PO SCH ×2 (09:37→20:49)
[2022-11-02] MEDS: BACLOFEN 10 MG TAB PO SCH ×3 (09:37→17:12)
[2022-11-02] MEDS: VANCOMYCIN 1,000 MG in DEXTROSE 5% 250 ML IV SCH ×2 (10:00→17:12)
[2022-11-02] MEDS ORDERED: MIDODRINE 5 MG TAB PO SCH (13:00)
--- NOTE | 2022-11-02 13:00 | NUR ---
status update: patient refused his midodrine medication. no acute distress or SOB noted. will continue to follow plan of care.
--- NOTE | 2022-11-02 14:30 | NUR ---
status update: She[employer] interviewed patient at bedside regarding nutrition. No acute distress or SOB noted. Will continue to follow plan of care.
--- NOTE | 2022-11-02 14:58 | NUR ---
11/02/22 RD INITIAL ASSESSMENT COMPLETED PLEASE REFER TO NUTRITION ASSESSMENT UNDER CARE ACTIVITY FOR ESTIMATED NUTRITIONAL NEEDS. 1. CONTINUE [facility] DIET TOLERATED. RD WILL MONITOR GLUCOSE LEVELS TO POSSIBLY CHANGE DIET TO REGULAR DIET. 2. RD RECOMMENDS PROSOURCE BID FOR WOUNDS WHICH WILL PROVIDE 120 CALORIES AND 30 GRAMS OF PROTEIN. 3. RD WILL MONITOR PO INTAKE, WEIGHTS, GI ISSUES AND RELATED LAB VALUES TO SEE IF SUPPLEMENTS ARE NEEDED. 4. RD TO FOLLOW-UP 2-3 DAYS, HIGH RISK CASSIE NICOLE RD
--- NOTE | 2022-11-02 15:18 | NUR ---
Transferred patient to telemetry nurse JERMAN Barry. for patients continuity of care. All belongings transferred with patient from ICU.
--- NOTE | 2022-11-02 15:20 | NUR ---
receive the ICU downgrade from [facility] in rm 110A with admitting diagnosis of urosepsis , infectious sacral decubitus ulcer . aox 4 to continue iv antibiotics . will continue to monitor
--- NOTE | 2022-11-02 17:50 | NUR ---
patient woke up change gown and reposition . make patient clean and comfortable
--- NOTE | 2022-11-02 18:41 | NUR ---
will endorse to [employer] shift lead rn for continuity of care . on antibiotics therapy for urosepsis , infectious sacral decubitus ulcer
--- NOTE | 2022-11-02 20:49 | NUR ---
ADMINISTERED SCHEDULED DUE MEDICATIONS. PATIENT APPEARS TO BE WEAK AND LETHARGIC. NO ACUTE DISTRESS, ON ROOM AIR. NO COMPLAINTS OF PAIN AT THIS TIME. CALL LIGHT WITHIN REACH. PATIENT REFUSED V/S AT 1999. ALL SAFETY PRECAUTIONS ARE IN PLACE.
[2022-11-03] VITALS: PULSE 120
--- NOTE | 2022-11-03 00:35 | NUR ---
PATIENT REFUSED VITAL SIGNS, STATED I'M FINE.
[2022-11-03] MEDS: VANCOMYCIN 1,000 MG in DEXTROSE 5% 250 ML IV SCH ×3 (02:14→17:11)
--- NOTE | 2022-11-03 02:14 | NUR ---
PATIENT COMPLAINED OF HEADACHE, V/S : T-99.9, P-123, BP-92/44, R-36, O2 SAT- 94%. OFFERED TYLENOL PATIENT REFUSED. COOLING MEASURES DONE.
--- NOTE | 2022-11-03 02:30 | NUR ---
PATIENT OFF TELE. ASKED PATIENT TO PUT MONITOR BACK ON BUT REFUSED. NURSE SURYA BAILEY TRIED TO HELP PUT IT BACK, PATIENT AGAIN REFUSED.
--- NOTE | 2022-11-03 02:56 | NUR ---
PATIENT REFUSED TO BE TURNED TO SIDES.
[2022-11-03] MEDS: NACL 0.9% 1,000 ML IV SCH ×2 (04:15→13:43)
[2022-11-03] MEDS: PIPERACILLIN/TAZOBACTAM 3.375 GM in DEXTROSE 5% 50 ML IV SCH (04:35)
--- NOTE | 2022-11-03 07:09 | NUR ---
receive the patient from the hourly shift felicia Huff in rm [address] aox4 with episode of being uncooperative . admitting diagnosis of urosepsis , infectious sacral decubitus ulcer . will continue with antibiotics , blood pressure medications for hypotension. will continue to monitor
[2022-11-03 07:26] VITALS: PULSE 111
[2022-11-03 08:00] VITALS: BP 120/76; PULSE 101; PULSE 111; RESP 20; TEMP 97.8; O2SAT 92
[2022-11-03] MEDS: QUEtiapine FUMARATE 100 MG TAB PO SCH ×2 (09:00→21:00)
[2022-11-03] MEDS: PANTOPRAZOLE 40 MG TABEC PO SCH (09:00)
[2022-11-03] MEDS: BACLOFEN 10 MG TAB PO SCH ×3 (09:58→17:10)
[2022-11-03] MEDS: MIDODRINE 5 MG TAB PO SCH ×3 (09:58→17:10)
--- NOTE | 2022-11-03 10:06 | NUR ---
WOUND CARE NOTE: SKIN ASSESSMENT DONE WITH PRIMARY RN SAAD. PT. ADMITTED WITH SEVERE SEPSIS,UTI, SACRAL AND LEFT ISCHIAL AND HEELS PRESSURE INJURIES. SACRAL ULCER - WITH EVIDENCE OF OSTEOMYELITIS AND MYOSITIS, HIP JOINT SEPTIC ARTHRITIS. GENERAL SURGEON, INFECTIOUS DISEASE, ORTHOPEDICS CONSULTED. ALL ABOVE INFORMATION OBTAIN FROM ADMISSION H&P, CHART REVIEW AND PT. PT IS AAX4, WOUND CARE POC DISCUSSED. RECOMMEND SURGEON CONSULT DEBRIDEMENT TO SACRAL INFECTED WOUND AND DIVERTING COLOSTOMY. RISKS AND BENEFIT EXPLAINED, HE VERBALIZES UNDERSTANDING. PER PT. HE IS AWARE AND EXPLAINED BY SURGEON BEFORE OF BENEFIT AND RISK OF HAVING COLOSTOMY AND HE LIKE TO HAVE IT. PRIMARY RN AT BED SIDE WITNESS THE REQUEST. POC DISCUSSED WITH DR. REIS. PER DOCTOR HE IS AWARE AND SURGEON IS ON BOARD. POC DISCUSSED WITH SAAD. PT. WITH LOW ALAN SCALE AT VERY HIGH RISK FOR NEW SKIN BREAKS, CONTINUE TO FOLLOW PRESSURE INJURY PREVENTION INTERVENTIONS. INTEGUMENTARY: -SUPRAPUBIC CATH, AKHIL-STOMA SKIN DRY AND CLEAN. -PRESSURE INJURY STAGE 4, SACROCOCCYX [id number], UNDERMINING TO 12 O'CLOCK DIRECTION 5 CM DEEP. WOUND BED 30% INFECTED TISSUE, 70% PALE YELLOW SLOUGH TISSUE.MODERATE AMOUNT SEROUS DRAINAGE WITH MILD ODOR AFTER RINSE WITH NS. WOUND EDGE ROLLED SLOUGH TISSUE, AKHIL-WOUND SKIN PARTIAL THICKNESS SKIN LOSS, BROWN SLOUGH TISSUE SURROUNDING NON-BLANCHABLE REDNESS DENUDED SKIN INDICATED FURTHER DAMAGE. -PRESSURE INJURY STAGE 3, LEFT BUTTOCK 2X1X0.3CM WOUND, 100% GRANULATING TISSUE, MOIST, NO ODOR, AKHIL WOUND SKIN DRY INTACT. -PRESSURE INJURY STAGE 4, LEFT ISCHIAL 4X1.5X5CM TUNNEL WOUND, 100% GRANULATING TISSUE, TUNNEL WOUND TO 6 OCLOCK DIRECTION, MOIST, MILD ODOR, AKHIL WOUND SKIN WITH SCAR TISSUE INTACT. -PRESSURE INJURY UN-STAGEABLE, LEFT HEEL 2X2CM 100% THIN BROWN SCAB TISSUE, DRY, NO ODOR, AKHIL WOUND DRY, PEELING SKIN. -PRESSURE INJURY UN-STAGEABLE, RIGHT HEEL MULTIPLE THIN BROWN SCAB TISSUE WITH LARGEST 1.5X1CM DRY, NO ODOR, AKHIL WOUND DRY, PEELING SKIN. RECOMMENDATIONS: -SURGEON CONSULT DEBRIDEMENT TO SACRAL INFECTED WOUND AND DIVERTING COLOSTOMY -CLEANSE LEFT BUTTOCK, LEFT ISCHIAL AND SACRALCOCCYX WOUNDS WITH NS, PAT DRY, PACK WOUNDS WITH ALGINATE DRESSING AND COVER WITH DRY DRESSING QD AND PRN IF SOILING -PAINT LEFT AND RIGHT HEELS SCABS WITH BETADINE SWAP STICK BID AND GORDON -POSITIONING: TURN AND REPOSITION PATIENT Q 2H OR SOONER USE PILLOWS TO KEEP BONY PROMINENCES FROM DIRECT CONTACT WITH SURFACES USE REPOSITIONING WEDGES TO PROVIDE 30-DEGREE ANGLE FOR SIDE LYING POSITIONS OFFLOADING OR FOAM DRESSING TO ALL TUBING TO PREVENT MEDICAL DEVICES RELATED PRESSURE INJURY -RE-EVALUATING AND MANAGING INCONTINENCE MONITOR SKIN CONDITION DURING POSITION CHANGE DO NOT MASSAGE REDNESS, BONY PROMINENCES FREQUENT AKHIL-CARE AND PROVIDE BARRIER CREAMS PRN IF SOILING MOISTURE CONTROL BY SUPRAPUBIC CATH, ABSORBENT PAD TO WICK AND HOLD MOISTURE KEEP SKIN DRY AND PROTECT FROM FRICTION -MANAGE FRICTION/SHEAR/MOBILITY KEEP HOB AT THE LOWEST LEVEL OF ELEVATION NO MORE THAN 30 DEGREE UNLESS OTHERWISE CONTRAINDICATED USE LIFT SHEET OR TRANSFER DEVICE TO MOVE PATIENT AND PREVENT LATERAL SHEER. PROTECT HEELS, ELBOWS BONY PROMINENCES WITH SKIN BERRIES OR FOAM DRESSING IF EXPOSED TO FRICTION OFFLOAD BILATERAL HEELS BY PLACING PILLOWS UNDER CALVES AT ALL TIMES, UNLESS OTHERWISE CONTRAINDICATED -PRESSURE REDISTRIBUTION SURFACE THERAPY MARK ISOFLEX ROGELIO MATTRESS -NUTRITION: PLEASE FOLLOW RD RECOMMENDATIONS AND OFFER NUTRITION SUPPLEMENTS IF ORDERED.
[2022-11-03] MEDS: VANCOMYCIN PER PHARMACY MC SCH (10:08)
--- NOTE | 2022-11-03 10:09 | NUR ---
wound care nurse inform md Urban the patient want colostomy bag fro prevention of sacral wound infection suggested also for sacral wound debridement
--- NOTE | 2022-11-03 10:15 | NUR ---
patient refuse to collect aero / anaerobic culture on patient sacral wound . will continue to monitor
--- NOTE | 2022-11-03 10:15 | NUR ---
patient refuse dressing on bilateral heels for protection
--- NOTE | 2022-11-03 10:16 | NUR ---
will try to take later pictures of the bilateral heels according to the patient . patient stated he wants to sleep
--- NOTE | 2022-11-03 10:40 | NUR ---
discontinue levophed . medication which was order from intensive care unit
--- NOTE | 2022-11-03 10:45 | NUR ---
were able to get blood sample for vanco trough from the patient PICC line . submitted to the laboratory for evaluation
--- NOTE | 2022-11-03 10:47 | NUR ---
laboratory called inform the RN about urine culture proteus mirabilis ESBL MDRO . notify
[2022-11-03 10:52] LABS: BASOPHILS % (AUTO) 0.8 % (0.0-2.0); EOSINOPHILS # (AUTO) 0.3 K/uL (0-0.4); EOSINOPHILS % (AUTO) 4.5 % (0.0-4.0); HEMOGLOBIN 8.2 g/dL (12.0-18.0); LYMPHOCYTES % (AUTO) 17.9 % (20.5-51.1); MEAN CORPUSCULAR HEMOGLOBIN 21 pg (27-31); MEAN CORPUSCULAR HGB CONC 29 g/dL (33-37); MEAN CORPUSCULAR VOLUME 72.1 fL (80-94); MONOCYTES # (AUTO) 0.5 K/uL (0.8-1.0); MONOCYTES % (AUTO) 8.9 % (1.7-9.3); NEUTROPHILS # (AUTO) 3.9 K/uL (1.8-7.7); NEUTROPHILS % (AUTO) 67.9 % (42.2-75.2); PLATELET COUNT (AUTO) 323 K/uL (140-450); RED BLOOD CELL COUNT(AUTO) 3.88 MIL/uL (4.20-6.10); RED CELL DISTRIBUTION WIDTH 19.3 % (11.6-13.7); WHITE BLOOD COUNT (AUTO) 5.7 K/uL (4.8-10.8)
--- NOTE | 2022-11-03 11:17 | NUR ---
according to dr samuel sullivan interventional radiologist, we dont do left hip aspiartion . it will only ne done by orthopedic doctor . the rn inform Md Urban
--- NOTE | 2022-11-03 11:26 | NUR ---
md mantilla ask for the contact number for Md samuel rowe
[2022-11-03 11:28] LABS: ALBUMIN 1.4 g/dL (3.4-5.0); ANION GAP 10.9 (8-16); CARBON DIOXIDE 29.3 mmol/L (21-32); CREATININE 0.5 mg/dL (0.6-1.3); POTASSIUM 3.2 mmol/L (3.5-5.1); TOTAL BILIRUBIN 0.1 mg/dL (0.0-1.0)
[2022-11-03] MEDS: MEROPENEM 1,000 MG in NACL 0.9% 50 ML IV SCH ×2 (11:53→21:55)
[2022-11-03 12:00] VITALS: PULSE 103
[2022-11-03] MEDS ORDERED: ALGINATE DRESSING MC PRN (12:05)
--- NOTE | 2022-11-03 12:36 | NUR ---
transfer to medical surgical . discontinue heart monitor
[2022-11-03] MEDS: GAUZE TP SCH (13:43)
[2022-11-03] MEDS: ALGINATE DRESSING MC SCH (13:44)
--- NOTE | 2022-11-03 15:11 | NUR ---
FNS CONSULT FOR WOUNDS/PRESSURE ULCER RECEIVED ON 11/03/22. RD SAW THIS PATIENT ON 11/02/22 FOR WOUND/PRESSURE ULCER. TREATMENT IN PLACE AND FOLLOW UP WILL BE COMPLETED IN 3-5 DAYS.
[2022-11-03 16:00] VITALS: PULSE 124
--- NOTE | 2022-11-03 18:32 | NUR ---
will endorse to dock or pier laborer rn for continuity of care . still to continue meropenem , vancomycin . the patient would like to have diverting colostomy . Md will discuss with the surgeon . Md will also have plan of interventional aspiration of patient left hip with orthopedic Md
[2022-11-03 20:00] VITALS: BP 152/85; PULSE 111; RESP 19; TEMP 98.9; O2SAT 97
--- NOTE | 2022-11-03 21:00 | NUR ---
PT REFUSED SEROQUEL MEDICATION, EXPLAIN RISKS AND BENEFITS AND EDUCATE PT, PT STILL REFUSED MEDICATION.
[2022-11-04] MEDS: VANCOMYCIN 1,000 MG in DEXTROSE 5% 250 ML IV SCH ×3 (02:00→18:04)
[2022-11-04] MEDS: NACL 0.9% 1,000 ML IV SCH ×3 (02:30→17:53)
--- NOTE | 2022-11-04 04:00 | NUR ---
VITAL SIGNS AT 0400 WAS NOT TAKEN, PT REFUSED. PT STATED NOT TO BOTHER HIM AND TO LEAVE HIM ALONE.
[2022-11-04 06:42] LABS: ALBUMIN 1.5 g/dL (3.4-5.0); ANION GAP 9.1 (8-16); BASOPHILS # (AUTO) 0.1 K/uL (0.00-0.22); CREATININE 0.5 mg/dL (0.6-1.3); EOSINOPHILS # (AUTO) 0.4 K/uL (0-0.4); EOSINOPHILS % (AUTO) 6.4 % (0.0-4.0); HEMATOCRIT 27.4 % (36-52); HEMOGLOBIN 8.6 g/dL (12.0-18.0); LYMPHOCYTES # (AUTO) 1.8 K/uL (2.0-11.5); MEAN CORPUSCULAR HEMOGLOBIN 21 pg (27-31); MEAN CORPUSCULAR HGB CONC 31 g/dL (33-37); MEAN CORPUSCULAR VOLUME 68.3 fL (80-94); MONOCYTES # (AUTO) 0.7 K/uL (0.8-1.0); MONOCYTES % (AUTO) 9.9 % (1.7-9.3); NEUTROPHILS % (AUTO) 56.7 % (42.2-75.2); PLATELET COUNT (AUTO) 423 K/uL (140-450); POTASSIUM 4.1 mmol/L (3.5-5.1); RED BLOOD CELL COUNT(AUTO) 4.02 MIL/uL (4.20-6.10); RED CELL DISTRIBUTION WIDTH 18.7 % (11.6-13.7); TOTAL BILIRUBIN 0.2 mg/dL (0.0-1.0)
--- NOTE | 2022-11-04 07:20 | NUR ---
PT IS ON STABLE CONDITION. ENDORSED TO DAY SHIFT NURSE FOR CONTINUITY OF CARE. SAFETY MEASURES ARE IN PLACE.
--- NOTE | 2022-11-04 07:20 | NUR ---
RECEIVED PT FROM FORCE ADJUSTMENT SUPERVISOR FOR CONTINUITY OF CARE. ALERT AND ORIENTED X 4. RESP. EVEN AND UNLABORED. IVF INFUSING WELL. F/C INTACT DRAINING YELLOW URINE. NO C/O PAIN OR DISCOMFORT. CALL LIGHT KEPT WITHIN REACH. CALL LIGHT KEPT WITHIN REACH. WILL CONTINUE TO MONITOR.
[2022-11-04 08:00] VITALS: BP 139/69; PULSE 101; PULSE 111; PULSE 112; RESP 18; TEMP 96.7; O2SAT 96
[2022-11-04] MEDS: MEROPENEM 1,000 MG in NACL 0.9% 50 ML IV SCH ×2 (08:59→20:19)
--- NOTE | 2022-11-04 08:59 | NUR ---
MEROPENEM IV WAS GIVEN BY TERRIE STOLL. TOLERATED WELL.
[2022-11-04] MEDS: QUEtiapine FUMARATE 100 MG TAB PO SCH ×2 (09:00→21:04)
[2022-11-04] MEDS: MIDODRINE 5 MG TAB PO SCH ×3 (09:00→17:00)
[2022-11-04] MEDS: PANTOPRAZOLE 40 MG TABEC PO SCH (09:00)
[2022-11-04] MEDS: VANCOMYCIN PER PHARMACY MC SCH (09:20)
[2022-11-04] MEDS: BACLOFEN 10 MG TAB PO SCH ×2 (09:25→13:46)
--- NOTE | 2022-11-04 09:25 | NUR ---
PT REFUSED SCHEDULED MEDICATIONS EXCEPT BACLOFEN. EXPLAIN RISK AND BENEFITS BUT STILL REFUSED. DR. CORDOVA NOTIFIED.
[2022-11-04 10:00] VITALS: BP 166/87; PULSE 113; RESP 18; TEMP 98.3; O2SAT 96
--- NOTE | 2022-11-04 10:16 | NUR ---
11/04/22 RD FOLLOW UP COMPLETED PLEASE REFER TO NUTRITION ASSESSMENT UNDER CARE ACTIVITY FOR ESTIMATED NUTRITIONAL NEEDS. 1. RD RECOMMENDS CHANGING DIET FROM CCHO TO REGULAR DUE TO GLUCOSE NOW BEING NORMAL, PATIENT HAS NO HISTORY OF DIABETES AND FOR HELP WITH WEIGHT GAIN. 2. RD RECOMMENDS CONTINUING PROSOURCE BID FOR WOUNDS WHICH WILL PROVIDE 120 CALORIES AND 30 GRAMS OF PROTEIN. 3. RD RECOMMENDS ENSURE BID FOR WEIGHT GAIN WHICH WILL PROVIDE 700 CALORIES AND 40 GRAMS OF PROTEIN. 4. RD WILL MONITOR PO INTAKE, LABS, WEIGHTS, SKIN INTEGRITY AND GI ISSUES. 5. RD TO FOLLOW-UP 3-5 DAYS, MODERATE RISK CASSIE NICOLE RD
--- NOTE | 2022-11-04 10:18 | NUR ---
VANCOMYCIN IV WAS GIVEN TERRIE STOLL. TOLERATED WELL.
--- NOTE | 2022-11-04 10:43 | NUR ---
Patient's Plan of Care was discussed and reviewed with DYE MACHINE TENDER: KAMRON
[2022-11-04] MEDS: GAUZE TP SCH (13:41)
[2022-11-04] MEDS: ALGINATE DRESSING MC SCH (13:41)
--- NOTE | 2022-11-04 13:41 | NUR ---
WOUND CARE DONE. TOLERATED WELL.
--- NOTE | 2022-11-04 13:46 | NUR ---
PT REFUSED MIDODRINE. EXPLAINED RISK AND BENEFITS BUT STILL REFUSED. MD AWARE.
[2022-11-04] MEDS: HYDROmorphone 1 MG/ML AMP IVP PRN ×2 (14:22→18:47)
[2022-11-04] MEDS: CHLORHEXADINE GLUC 2% CLOTH TP SCH (15:16)
[2022-11-04] MEDS: MUPIROCIN CA NASAL 2% 1GM TUBE NS SCH (15:18)
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
--- NOTE | 2022-11-04 17:43 | NUR ---
PT REFUSED MIDODRINE. EXPLAINED RISK AND BENEFITS BUT STILL REFUSED. MD AWARE.
--- NOTE | 2022-11-04 18:04 | NUR ---
VANCOMYCIN IV WAS GIVEN. TOLERATED WELL.
[2022-11-04 18:43] VITALS: BP 144/77
--- NOTE | 2022-11-04 18:47 | NUR ---
PRN DILAUDID WAS GIVEN BY JONATHON RN. TOLERATED WELL.
--- NOTE | 2022-11-04 19:30 | NUR ---
BEDSIDE REPORT GIVEN TO NIGHT NURSE SHIRA FOR CONTINUITY OF CARE. REMAINS STABLE.
--- NOTE | 2022-11-04 19:31 | NUR ---
RECEIVED REPORT FROM KAMRON MOBLEY, PATIENT WAS STABLE DURING SHIFT REPORT. PATIENT PICC LINE IN RIGHT UPPER ARM WAS NOTED CLEAN AND INTACT. PATIENT IN BED ALERT AND ORIENTED. REQUESTED SODA AND SNACKS. NURSING GAVE ACCORDING TO DIET. PATIENT HAS LARGE SACRAL WOUND WITH DRESSING INTACT, DENIES SARAHI PAIN AT THIS TIME. NURSING ENCOURAGED FOR PATIENT TO REMAIN OFF THE WOUND AREA BUT NON COMPLIANT. PATIENT HAS SUPRAPUBIC MARCOS CATH WITH CLEAR YELLOW DRAINAGE. SIDE RAILS UP X 2 CALL LIGHT WITHIN REACH. [email or web address]
[2022-11-04 20:00] VITALS: PULSE 107; RESP 18; TEMP 99.7; O2SAT 94
--- NOTE | 2022-11-04 20:00 | NUR ---
Patient's Plan of Care was discussed and reviewed with SHIRA MOBLEY:
--- NOTE | 2022-11-04 22:36 | NUR ---
SPOKE WITH DR MEZA FOR PREOP FOR TOMORROW SURGERY. NEW ORDERS FOR DRUG SCREEN AND 2D ECHOCARDIOGRAM STAT. NEW ORDERS WERE PLACED. FOR ECHOCARDIOGRAM THE SAND CONDITIONER TECH WAS CALLED AND THE TEST WILL BE PREFORMED IN THE AM PER RESPIRATORY. [email or web address]
[2022-11-04 23:37] LABS: BARBITURATE, URINE NEGATIVE ng/ml (NEG <=200)
[2022-11-04 23:41] LABS: BENZODIAZEPINE, URINE NEGATIVE ng/mL (NEG <=200); CANNABINOID, URINE POSITIVE ng/mL (NEG <=50); COCAINE, URINE NEGATIVE ng/mL (NEG <=300); OPIATE, URINE POSITIVE ng/mL (NEG <=2000); PHENCYCLIDINE SCREEN,URINE NEGATIVE ng/mL (NEG <=25)
[2022-11-05] MEDS: BACLOFEN 10 MG TAB PO SCH ×3 (00:50→16:32)
--- NOTE | 2022-11-05 00:53 | NUR ---
PATIENT BECAME ANGRY WHEN WE INFORMED HE COULD NOT HAVE DILAUDID DUE TO BLOOD PRESSURE NOTED AT 88/44 104 AON RIGHT LEG AND 97/56 108 LEFT ARM. PATIENT INSISTED ON BACLOFEN TO BE GIVEN OR HE WILL STOP SURGERY, NURSING CONSULTED WITH RESOURCE NURSE BEFORE CONTACTING MD AND IT WAS AGREED TO GIVEN THE MEDICATION AND PATIENT TOOK MEDICATION ORALLY WITHOUT WATER. THIS WILL BE ENDORSED TO AM NURSE. [email or web address]
[2022-11-05] MEDS: VANCOMYCIN 1,000 MG in DEXTROSE 5% 250 ML IV SCH ×3 (02:18→22:42)
--- NOTE | 2022-11-05 03:03 | NUR ---
PATIENT WAS NOTED IN BED ASLEEP WITHOUT INCIDENT. AL NEEDS MET AT THIS TIME. NO S/S OF PAIN/DISCOMFORT. NO NOTED RESPIRATORY DISTRESS. SIDE RAILS UP X2 FOR SAFETY AND COMFORT. [email or web address]
[2022-11-05 04:00] VITALS: BP 122/79; PULSE 107; RESP 17; TEMP 98.3; O2SAT 97
--- NOTE | 2022-11-05 05:42 | NUR ---
PATIENT HAS SLEPT THE ENTIRE NIGHT WITHOUT INCIDENT. KEPT CLEAN AND DRY. REFUSED BATH THAT HE REQUESTED EARLIER. ALL NEEDS MET AT THIS TIME. NO S/S OF PAIN/DISCOMFORT. NO NOTED RESPIRATORY DISTRESS. SIDE RAILS UP X 3 FOR SAFETY AND COMFORT. ALL NEEDS MET AT THIS TIME. CALL LIGHT WITHIN REACH. [email or web address]
[2022-11-05] MEDS: NACL 0.9% 1,000 ML IV SCH ×2 (06:21→16:35)
--- NOTE | 2022-11-05 06:29 | NUR ---
SPOKE WITH DR BORJAS THE SURGEON ABOUT PATIENT THREATENING TO CANCEL SURGERY FOR HIS MEDICATION. STATED IT IS OK LET HIM HAVE HIS MEDICATION WITH THE NPO STATUS. NURSING WILL CHANGE THE ORDER WAS MADE AWARE. [email or web address]
[2022-11-05 06:46] LABS: BASOPHILS % (AUTO) 0.8 % (0.0-2.0); EOSINOPHILS # (AUTO) 0.4 K/uL (0-0.4); EOSINOPHILS % (AUTO) 7.2 % (0.0-4.0); HEMATOCRIT 24.7 % (36-52); HEMOGLOBIN 7.8 g/dL (12.0-18.0); LYMPHOCYTES # (AUTO) 1.7 K/uL (2.0-11.5); LYMPHOCYTES % (AUTO) 27.1 % (20.5-51.1); MEAN CORPUSCULAR HEMOGLOBIN 21 pg (27-31); MEAN CORPUSCULAR HGB CONC 32 g/dL (33-37); MONOCYTES # (AUTO) 0.7 K/uL (0.8-1.0); MONOCYTES % (AUTO) 10.9 % (1.7-9.3); NEUTROPHILS # (AUTO) 3.3 K/uL (1.8-7.7); PLATELET COUNT (AUTO) 373 K/uL (140-450); RED BLOOD CELL COUNT(AUTO) 3.64 MIL/uL (4.20-6.10); WHITE BLOOD COUNT (AUTO) 6.1 K/uL (4.8-10.8)
[2022-11-05 06:58] LABS: ALBUMIN 1.5 g/dL (3.4-5.0); ANION GAP 7.4 (8-16); CARBON DIOXIDE 32.7 mmol/L (21-32); CREATININE 0.4 mg/dL (0.6-1.3); POTASSIUM 4.1 mmol/L (3.5-5.1); TOTAL BILIRUBIN 0.1 mg/dL (0.0-1.0)
--- NOTE | 2022-11-05 07:03 | NUR ---
ENDORSED CONTINUITY OF CARE TO KAMRON MOBLEY, PATIENT WAS STABLE DURING CHANGE OF SHIFT. [email or web address]
--- NOTE | 2022-11-05 07:10 | NUR ---
RECEIVED PT FROM CHEMICAL ANALYTICAL SAMPLER FOR CONTINUITY OF CARE. ALERT AND ORIENTED X 4. RESP. EVEN AND UNLABORED. IVF INFUSING WELL. F/C INTACT DRAINING YELLOW URINE. NO C/O PAIN OR DISCOMFORT. REMAINS ON NPO EXCEPT MEDS. SCHEDULED FOR SURGERY TODAY. CALL LIGHT KEPT WITHIN REACH. WILL CONTINUE TO MONITOR.
[2022-11-05 08:00] VITALS: PULSE 101; PULSE 115; RESP 20; TEMP 97.2; O2SAT 95
--- NOTE | 2022-11-05 08:45 | NUR ---
ECHOCARDIOGRAM COMPLETED, EF 50-55%.
[2022-11-05] MEDS: PANTOPRAZOLE 40 MG TABEC PO SCH (09:00)
[2022-11-05] MEDS: QUEtiapine FUMARATE 100 MG TAB PO SCH ×2 (09:00→20:50)
[2022-11-05] MEDS: MIDODRINE 5 MG TAB PO SCH ×4 (09:00→17:00)
[2022-11-05] MEDS: VANCOMYCIN PER PHARMACY MC SCH (09:12)
--- NOTE | 2022-11-05 09:15 | NUR ---
PT REFUSED SCHEDULED MEDICATIONS EXCEPT BACLOFEN. EXPLAIN RISK AND BENEFITS BUT STILL REFUSED. DR. CORDOVA MADE AWARE.
[2022-11-05] MEDS: MEROPENEM 1,000 MG in NACL 0.9% 50 ML IV SCH ×2 (09:27→21:17)
--- NOTE | 2022-11-05 10:17 | NUR ---
PT OFF UNIT. BUTTON GRADER BY CORETTA STOLL FROM OR. ENDORSED TO CORETTA 10M DOSE VANCOMYCIN DUE, AND STATED TO BE GIVEN AFTER SURGERY. REMAINS STABLE.
--- NOTE | 2022-11-05 10:22 | NUR ---
CALLED PHARMACY SPOKE TO PHARMACIST MEDIA REGARDING 10 AM DOSE OF VANCOMYCIN, NOT GIVEN DUE TO PT SCHEDULED FOR SURGERY AND MADE AWARE.
[2022-11-05] MEDS ORDERED: HYDROmorphone PFS 2 MG/ML SYR ONE (10:45)
[2022-11-05] MEDS: HYDROmorphone 1 MG/ML AMP IVP PRN ×3 (10:56→21:18)
[2022-11-05] MEDS: ALGINATE DRESSING MC SCH (13:00)
[2022-11-05] MEDS: GAUZE TP SCH (13:00)
[2022-11-05] MEDS ORDERED: BUPIVACAINE-MPF/EPI 0.25% 30 ML VIAL INJ ONE (13:19)
[2022-11-05] MEDS ORDERED: LIDOCAINE MPF 1% 10 ML ONE (13:19)
[2022-11-05] MEDS ORDERED: fentaNYL citrate 0.05 MG/ML VIAL ONE (13:27)
[2022-11-05] MEDS ORDERED: SEVOFLURANE 250 ML BTL INH ONE (13:27)
[2022-11-05] MEDS ORDERED: GLYCOPYRROLATE 0.2 MG/ML VIAL ONE ×5 (14:42→14:43)
[2022-11-05] MEDS ORDERED: NEOSTIGMINE 1:1000 10 MG/10 ML VIAL ONE (14:42)
[2022-11-05] MEDS ORDERED: PROPOFOL 200 MG/20 ML VIAL IV ONE (14:43)
[2022-11-05] MEDS ORDERED: ROCURONIUM 50 MG/5 ML VIAL IV ONE (14:43)
[2022-11-05] MEDS ORDERED: ONDANSETRON 4 MG/2 ML VIAL ONE (14:43)
[2022-11-05] MEDS ORDERED: hydrALAZINE 20 MG/ML VIAL IVP PRN (15:02)
[2022-11-05] MEDS ORDERED: LABETALOL 20 MG/4 ML VIAL IVP PRN (15:03)
[2022-11-05] MEDS ORDERED: LACTATED RINGERS 1,000 ML IV SCH (15:05)
[2022-11-05] MEDS ORDERED: HYDROmorphone 1 MG/ML AMP IVP PRN (15:05)
--- NOTE | 2022-11-05 15:46 | NUR ---
PT RETURN FROM SURGERY. REPORT RECEIVED BY SOPHIA STOLL. ALERT AND ORIENTED X 4. RESP. EVEN AND UNLABORED. ON S/P LAP COLOSTOMY. NO BLEEDING. NO C/O PAIN OR DISCOMFORT. F/C INTACT DRAINING YELLOW URINE. CALL LIGHT KEPT WITHIN REACH. CALL LIGHT KEPT WITHIN REACH. WILL CONTINUE TO MONITOR.
--- NOTE | 2022-11-05 15:58 | NUR ---
VANCOMYCIN IV WAS GIVEN BY LO STOLL. TOLERATED WELL.
[2022-11-05] MEDS: CHLORHEXADINE GLUC 2% CLOTH TP SCH (16:20)
[2022-11-05] MEDS: MUPIROCIN CA NASAL 2% 1GM TUBE NS SCH (16:31)
--- NOTE | 2022-11-05 16:45 | NUR ---
PRN DILAUDID 0.5 MG IVP GIVEN BY LO STOLL. TOLERATED WELL. WASTED 0.5 MG.
--- NOTE | 2022-11-05 17:34 | NUR ---
MIDODRINE ON HOLD D/T BP 131/86.
--- NOTE | 2022-11-05 19:00 | NUR ---
BEDSIDE REPORT GIVEN TO SAP TECHNICAL ARCHITECT FOR CONTINUITY OF CARE. REMAINS STABLE.
--- NOTE | 2022-11-05 19:35 | NUR ---
RECEIVED REPORT FROM DAY SHIFT NURSE FOR CONTINUITY OF CARE. PT IS AWAKE, ALERT AND ORIENTED X4. CURRENTLY ON ROOM AIR WITH NO APPARENT SIGNS OF DISTRESS NOTED. PATIENT STATES HE IS HAVING PAIN ALL OVER AND IS REQUESTING HIS PAIN MEDICATION. PICC LINE NOTED AT RIGHT UPPER ARM, INTACT AND PATENT. SKIN IS NOT INTACT, PT HAS SUPRAPUBIC CATHETER IN PLACE, AND PRESSURE WOUNDS LOCATED AT THE LEFT BUTTOCK, SACRAL AREA, AND LEFT HEEL. PT HAS REFUSED ALL VITAL SIGNS AT THIS TIME. EDUCATED THE PATIENT ON THE IMPORTANCE OF TAKING VITAL SIGNS, PT STILL REFUSED.
[2022-11-05 20:00] VITALS: BP 106/66; PULSE 66; RESP 20; O2SAT 95
--- NOTE | 2022-11-05 20:50 | NUR ---
SCHEDULED MEDICATIONS ADMINISTERED. PT STATES 9/10 PAIN AND IS REQUESTING PAIN MEDICATION. INSTRUCTED THE PATIENT THAT I WOULD NEED TO OBTAIN HIS BLOOD PRESSURE AND HEART IN ODER TO PASS PAIN MEDICATION. PT AGREED, STILL REFUSED OTHER VITAL SIGNS.
--- NOTE | 2022-11-05 20:51 | NUR ---
Patient's Plan of Care was discussed and reviewed with LEANDRA: SURYA
--- NOTE | 2022-11-05 21:20 | NUR ---
POC DISCUSSED, AND DILAUDID 0.5 MG IVP WAS ADMINISTERED TO PT BY RN: AIDE, WILL REASSESS PATIENTS PAIN LEVEL IN ONE HOUR.
[2022-11-06] MEDS: BACLOFEN 10 MG TAB PO SCH ×3 (00:59→17:03)
--- NOTE | 2022-11-06 01:02 | NUR ---
SCHEDULED BACLOFEN ADMINISTERED WITH NO COMPLICATIONS. PT TOLERATED WELL. NO SIGNS OF ACUTE DISTRESS NOTED, WILL CONTINUE MONITORING.
[2022-11-06] MEDS: NACL 0.9% 1,000 ML IV SCH ×3 (02:46→22:11)
--- NOTE | 2022-11-06 04:03 | NUR ---
PT REFUSED 0400 VITAL SIGNS. ATTEMPTED TO EDUCATE THE PATIENT ON THE IMPORTANCE OF TAKING VITAL SIGNS AND THE POTENTIAL RISKS, BUT PATIENT STILL REFUSED, STATING "I WANT TO BE LEFT ALONE RIGHT NOW". I ALSO ATTEMPTED TO CHECK THE PATIENTS WOUNDS AND CHANGE THE DRESSING NEEDED BUT PATIENT REFUSED THAT WELL. WILL ATTEMPT TO RE-ASK THE PATIENT AT A LATER TIME.
[2022-11-06] MEDS: VANCOMYCIN 1,000 MG in DEXTROSE 5% 250 ML IV SCH ×3 (06:00→22:05)
[2022-11-06] MEDS: HYDROmorphone 1 MG/ML AMP IVP PRN ×4 (06:15→22:08)
[2022-11-06 06:45] LABS: BASOPHILS % (AUTO) 0.5 % (0.0-2.0); EOSINOPHILS # (AUTO) 0.4 K/uL (0-0.4); EOSINOPHILS % (AUTO) 4.4 % (0.0-4.0); HEMATOCRIT 27.3 % (36-52); HEMOGLOBIN 8.5 g/dL (12.0-18.0); LYMPHOCYTES # (AUTO) 1.5 K/uL (2.0-11.5); LYMPHOCYTES % (AUTO) 17.7 % (20.5-51.1); MEAN CORPUSCULAR HEMOGLOBIN 21 pg (27-31); MEAN CORPUSCULAR HGB CONC 31 g/dL (33-37); MONOCYTES # (AUTO) 0.5 K/uL (0.8-1.0); MONOCYTES % (AUTO) 5.9 % (1.7-9.3); NEUTROPHILS # (AUTO) 6.3 K/uL (1.8-7.7); NEUTROPHILS % (AUTO) 71.5 % (42.2-75.2); PLATELET COUNT (AUTO) 420 K/uL (140-450); RED BLOOD CELL COUNT(AUTO) 4.01 MIL/uL (4.20-6.10); RED CELL DISTRIBUTION WIDTH 18.7 % (11.6-13.7); WHITE BLOOD COUNT (AUTO) 8.8 K/uL (4.8-10.8)
--- NOTE | 2022-11-06 07:00 | NUR ---
RECEIVED BEDSIDE REPORT FROM NIGHTSHIFT NURSE. PT ASLEEP IN BED, WOKE TO NAME AND TOUCH, NO SIGNS OF DISTRESS, NO REPORTS OF PAIN OR DISCOMFORT, WILL CONTINUE WITH PT CARE. CALL LIGHT WITHIN REACH.
[2022-11-06 07:19] LABS: ALBUMIN 1.7 g/dL (3.4-5.0); ANION GAP 8.7 (8-16); CARBON DIOXIDE 33.6 mmol/L (21-32); CREATININE 0.5 mg/dL (0.6-1.3); POTASSIUM 4.3 mmol/L (3.5-5.1); TOTAL BILIRUBIN 0.2 mg/dL (0.0-1.0)
[2022-11-06 08:00] VITALS: RESP 18
[2022-11-06] MEDS: QUEtiapine FUMARATE 100 MG TAB PO SCH ×2 (09:00→20:21)
[2022-11-06] MEDS: MIDODRINE 5 MG TAB PO SCH ×3 (09:00→17:00)
[2022-11-06] MEDS: MEROPENEM 1,000 MG in NACL 0.9% 50 ML IV SCH ×2 (09:30→20:21)
[2022-11-06] MEDS: PANTOPRAZOLE 40 MG TABEC PO SCH (09:32)
[2022-11-06] MEDS: GAUZE TP SCH (13:00)
[2022-11-06] MEDS: ALGINATE DRESSING MC SCH (13:00)
[2022-11-06] MEDS: CHLORHEXADINE GLUC 2% CLOTH TP SCH (15:21)
[2022-11-06] MEDS: MUPIROCIN CA NASAL 2% 1GM TUBE NS SCH (15:26)
[2022-11-06 16:00] VITALS: BP 117/73; PULSE 93; RESP 18; TEMP 100.5; O2SAT 97
--- NOTE | 2022-11-06 19:10 | NUR ---
ENDORSED TO NIGHTSHIFT NURSE FOR CONTINUITY OF CARE. PT STABLE, RESTING IN BED. NO SIGNS OF DISTRESS.
--- NOTE | 2022-11-06 19:11 | NUR ---
RECEIVED PT FROM MORNING SHIFT NURSE. PT IS AOX4, BEDBOUND AND ABLE TO VERBALIZE NEEDS. PT IS ON ROOM AIR AND ON REGULAR DIET. PT HAS PICC LINE DOUBLE LUMEN ON RIGHT UPPER ARM RUNNING WITH NS AT 100ML/HR. PT HAS LEFT BUTTOCKS WOUND, SACRAL WOUND AND SCAB ON LEFT HEEL. PT HAS COLOSTOMY BAG. PT DENIES PAIN AT THIS TIME. NO S/S OF RESPIRATORY DISTRESS NOTED. ALL SAFETY MEASURES IMPLEMENTED. BED IN LOW POSITION, BED WHEELS ON LOCK AND CALL LIGHT WITHIN REACH.
[2022-11-06 20:00] VITALS: PULSE 103; RESP 18; TEMP 98.8; O2SAT 94
--- NOTE | 2022-11-06 20:21 | NUR ---
SCHEDULED AND PRESCRIBED MEDICATION WAS GIVEN TO PT EXCEPT SEROQUEL. PT REFUSING TAKING IT. EDUCATED THE PT BUT PT STILL REFUSING. ALL SAFETY MEASURES IMPLEMENTED. BED IN LOW POSITION, BED WHEELS ON LOCK AND CALL LIGHT WITHIN REACH.
--- NOTE | 2022-11-06 22:05 | NUR ---
SCHEDULED AND PRESCRIBED MEDICATION WAS GIVEN TO PT PER MD ORDER. ALL SAFETY MEASURES IMPLEMENTED. BED IN LOW POSITION, BED WHEELS ON LOCK AND CALL LIGHT WITHIN REACH.
--- NOTE | 2022-11-06 22:08 | NUR ---
PRN PAIN MEDICATION WAS GIVEN TO PT DUE TO NECK PAIN WITH PAIN SCALE OF 8/10. ALL SAFETY MEASURES IMPLEMENTED. BED IN LOW POSITION, BED WHEELS ON LOCK AND CALL LIGHT WITHIN REACH.
[2022-11-07] MEDS ORDERED: BACLOFEN 10 MG TAB ONE ×2 (01:06→01:08)
[2022-11-07] MEDS: BACLOFEN 10 MG TAB PO SCH ×3 (01:09→17:47)
[2022-11-07] MEDS: HYDROmorphone 1 MG/ML AMP IVP PRN ×5 (02:26→22:28)
--- NOTE | 2022-11-07 02:26 | NUR ---
PRN PAIN MEDICATION WAS GIVEN TO PT DUE NECK PAIN WITH PAIN SCALE OF 8/10. ALL SAFETY MEASURES IMPLEMENTED. BED WHEELS ON LOCK, BED IN LOW POSITION AND CALL LIGHT WITHIN REACH.
--- NOTE | 2022-11-07 04:00 | NUR ---
MORNING CARE WAS DONE TO PT. CHANGED LINENS, GOWN AND BLANKET. EMPT COLOSTOMY BAG WITH 6ML OUTPUT AND MARCOS CATHETER WITH 2200ML OUTPUT. ALL SAFETY MEASURES IMPLEMENTED. BED WHEELS ON LOCK, BED IN LOW POSITION AND CALL LIGHT WITHIN REACH.
[2022-11-07] MEDS: VANCOMYCIN 1,000 MG in DEXTROSE 5% 250 ML IV SCH ×3 (05:22→22:42)
--- NOTE | 2022-11-07 05:22 | NUR ---
SCHEDULED AND PRESCRIBED MEDICATION WAS GIVEN TO PT PER MD ORDER. ALL SAFETY MEASURES IMPLEMENTED. BED WHEELS ON LOCK, BED IN LOW POSITION AND CALL LIGHT WITHIN REACH.
[2022-11-07 06:46] LABS: ALBUMIN 1.7 g/dL (3.4-5.0); ANION GAP 8.1 (8-16); CREATININE 0.4 mg/dL (0.6-1.3); POTASSIUM 4.1 mmol/L (3.5-5.1); TOTAL BILIRUBIN 0.2 mg/dL (0.0-1.0)
[2022-11-07 06:49] LABS: BASOPHILS % (AUTO) 0.5 % (0.0-2.0); EOSINOPHILS # (AUTO) 0.4 K/uL (0-0.4); EOSINOPHILS % (AUTO) 4.5 % (0.0-4.0); HEMATOCRIT 24.9 % (36-52); HEMOGLOBIN 7.7 g/dL (12.0-18.0); LYMPHOCYTES % (AUTO) 21.2 % (20.5-51.1); MEAN CORPUSCULAR HEMOGLOBIN 21 pg (27-31); MEAN CORPUSCULAR HGB CONC 31 g/dL (33-37); MEAN CORPUSCULAR VOLUME 68.6 fL (80-94); MONOCYTES # (AUTO) 0.8 K/uL (0.8-1.0); MONOCYTES % (AUTO) 8.2 % (1.7-9.3); NEUTROPHILS # (AUTO) 6.1 K/uL (1.8-7.7); NEUTROPHILS % (AUTO) 65.6 % (42.2-75.2); PLATELET COUNT (AUTO) 442 K/uL (140-450); RED BLOOD CELL COUNT(AUTO) 3.63 MIL/uL (4.20-6.10); RED CELL DISTRIBUTION WIDTH 18.8 % (11.6-13.7); WHITE BLOOD COUNT (AUTO) 9.3 K/uL (4.8-10.8)
--- NOTE | 2022-11-07 07:25 | NUR ---
PT IS STABLE. ENDORSED PT TO MORNING SHIFT NURSE FOR CONTINUITY OF CARE.
--- NOTE | 2022-11-07 07:30 | NUR ---
RECEIVED BEDSIDE REPORT FROM NIGHTSHIFT NURSE. PT IS ASLEEP IN BED, WOKE TO NAME AND TOUCH. NO SIGNS OF DISTRESS, NO REPORTS OF PAIN/DISCOMFORT. CALL LIGHT PLACED WITHIN REACH. NO FURTHER NEEDS ARE TO BE MET AT THIS TIME, WILL CONTINUE WITH PT CARE.
[2022-11-07 08:00] VITALS: BP 120/76; PULSE 91; RESP 18; TEMP 99.8; O2SAT 98
[2022-11-07] MEDS: NACL 0.9% 1,000 ML IV SCH ×2 (08:47→18:15)
[2022-11-07] MEDS: QUEtiapine FUMARATE 100 MG TAB PO SCH ×2 (09:00→21:00)
[2022-11-07] MEDS: MIDODRINE 5 MG TAB PO SCH ×3 (09:00→17:00)
[2022-11-07] MEDS: MEROPENEM 1,000 MG in NACL 0.9% 50 ML IV SCH ×2 (09:27→22:18)
[2022-11-07] MEDS: PANTOPRAZOLE 40 MG TABEC PO SCH (09:27)
[2022-11-07] MEDS ORDERED: VANCOMYCIN PER PHARMACY MC PRN (11:00)
[2022-11-07] MEDS: ALGINATE DRESSING MC SCH (13:00)
[2022-11-07] MEDS: GAUZE TP SCH (13:00)
[2022-11-07] MEDS: CHLORHEXADINE GLUC 2% CLOTH TP SCH (15:07)
[2022-11-07] MEDS: MUPIROCIN CA NASAL 2% 1GM TUBE NS SCH (15:13)
--- NOTE | 2022-11-07 18:00 | NUR ---
WOUND CARE DONE. OLD DRESSING REMOVED, WOUND CLEANED WITH NS, MODERATE AMOUNT DRAINAGE, NO ODOR PRESENT. PT HAS WOUND TO COCCYX AND WOUND TO LOWER LEFT BUTTCHEEK. BOTH CLEANED AND DRESSED. NEW DRESSING CLEAN/INTACT. WILL CONTINUE WITH PT CARE.
--- NOTE | 2022-11-07 19:46 | NUR ---
ENDORSED TO NIGHTSHIFT NURSE FOR CONTINUITY OF CARE. PT IS STABLE, RESTING IN BED, NO SIGNS OF DISTRESS, NO REPORTS OF PAIN OR DISCOMFORT. NO FURTHER NEEDS ARE TO BE MET AT THIS TIME.
[2022-11-07 20:00] VITALS: BP 102/63; PULSE 98; RESP 18; TEMP 99; O2SAT 96
--- NOTE | 2022-11-07 20:30 | NUR ---
PT REFUSED TO TAKE PICTURE OF HIS WOUND BY THE NURSE, PT STATED HIS WOUND IS BETTER AND WOUND NURSE CHANGE DRESSING 2X TODAY.
--- NOTE | 2022-11-07 21:00 | NUR ---
PT REFUSED SEROQUEL MED. EDUCATE PT, EXPLAIN THE RISKS AND BENEFITS X3, PT STILL REFUSED MEDICATION. NON ADMINISTER SEROQUEL
[2022-11-08] MEDS: BACLOFEN 10 MG TAB PO SCH ×3 (00:28→17:03)
[2022-11-08] MEDS: HYDROcodone/APAP 5/325 MG 1 TAB TAB PO PRN (01:47)
[2022-11-08] MEDS: HYDROmorphone 1 MG/ML AMP IVP PRN ×4 (03:02→22:32)
[2022-11-08] MEDS: NACL 0.9% 1,000 ML IV SCH ×2 (04:15→14:52)
--- NOTE | 2022-11-08 04:30 | NUR ---
PT REFUSED VITAL SIGNS CHECKED.
[2022-11-08] MEDS: VANCOMYCIN 1,000 MG in DEXTROSE 5% 250 ML IV SCH (06:30)
[2022-11-08 06:57] LABS: BASOPHILS # (AUTO) 0.1 K/uL (0.00-0.22); BASOPHILS % (AUTO) 1.2 % (0.0-2.0); EOSINOPHILS # (AUTO) 0.7 K/uL (0-0.4); HEMATOCRIT 25.5 % (36-52); LYMPHOCYTES # (AUTO) 2.1 K/uL (2.0-11.5); LYMPHOCYTES % (AUTO) 22.2 % (20.5-51.1); MEAN CORPUSCULAR HEMOGLOBIN 22 pg (27-31); MEAN CORPUSCULAR HGB CONC 32 g/dL (33-37); MEAN CORPUSCULAR VOLUME 68.7 fL (80-94); MONOCYTES # (AUTO) 0.7 K/uL (0.8-1.0); NEUTROPHILS # (AUTO) 5.8 K/uL (1.8-7.7); NEUTROPHILS % (AUTO) 62.6 % (42.2-75.2); PLATELET COUNT (AUTO) 480 K/uL (140-450); RED BLOOD CELL COUNT(AUTO) 3.71 MIL/uL (4.20-6.10); RED CELL DISTRIBUTION WIDTH 19.6 % (11.6-13.7); WHITE BLOOD COUNT (AUTO) 9.3 K/uL (4.8-10.8)
[2022-11-08 06:59] LABS: ALBUMIN 1.8 g/dL (3.4-5.0); CREATININE 0.5 mg/dL (0.6-1.3); TOTAL BILIRUBIN 0.2 mg/dL (0.0-1.0)
--- NOTE | 2022-11-08 07:15 | NUR ---
RECEIVED REPORT FROM ELECTRONEURODIAGNOSTIC TECHNICIAN NURSE FOR CONTINUITY OF CARE. PT IS ASLEEP, AWAKEN BY NAME. NO SIGN OF DISTRESS. CALL LIGHT WITHIN REACH.
[2022-11-08 08:00] VITALS: O2SAT 96
[2022-11-08] MEDS: QUEtiapine FUMARATE 100 MG TAB PO SCH ×2 (09:00→21:00)
[2022-11-08] MEDS: MEROPENEM 1,000 MG in NACL 0.9% 50 ML IV SCH ×2 (09:14→22:40)
[2022-11-08] MEDS: PANTOPRAZOLE 40 MG TABEC PO SCH (09:19)
[2022-11-08] MEDS: MIDODRINE 5 MG TAB PO SCH ×3 (09:20→17:00)
--- NOTE | 2022-11-08 11:15 | NUR ---
WOUND CARE EVALUATION NOTE: WOUND CARE DONE WITH S/P Laparoscopic sigmoid loop colostomy BY Surgeon HOLGER BORJAS. PT IS AAX4. SACRAL AND LEFT ISCHIAL WOUND CARE AND OSTOMY CARE INSTRUCTIONS EXPLAINED TO PT. PT. VERBALIZES UNDERSTANDING. SACRALCOCCYX WOUND IMPROVING, IV ANTIBIOTIC STARTED, INFECTED AND YELLOW SLOUGH TISSUE RESOLVED, APPROPRIATE FOR WOUND VAC TREATMENT, WOUND PHOTOS OBTAINED BY PRIMARY RN. POC MADE AWARE TO DR. NOEL OF WOUND VAC TO SACRAL AND LEFT ISCHIAL WOUND. [facility] MADE AWARE WITH REFERENCE #[id number] INTEGUMENTARY: -SUPRAPUBIC CATH, AKHIL-STOMA SKIN DRY AND CLEAN. -PRESSURE INJURY STAGE 4, SACROCOCCYX [id number], UNDERMINING TO 12 O'CLOCK DIRECTION 5 CM DEEP. WOUND BED 100% RED GRABULATION TISSUE.MODERATE AMOUNT SEROUS DRAINAGE WITH NO ODOR AFTER RINSE WITH NS. WOUND EDGE ROLLED MOIST TISSUE, AKHIL-WOUND SKIN PARTIAL THICKNESS SKIN LOSS SUPERFICIAL DEPTH BROWN SLOUGH TISSUE RESOLVED WITH DTI AND SURROUNDING NON-BLANCHABLE REDNESS DENUDED SKIN IMPROVING -PRESSURE INJURY STAGE 3, LEFT BUTTOCK 2X1X0.1CM WOUND, 100% GRANULATING TISSUE, MOIST, NO ODOR, AKHIL WOUND SKIN DRY INTACT. -PRESSURE INJURY STAGE 4, LEFT ISCHIAL 4X1.5X3CM TUNNEL WOUND, 100% GRANULATING TISSUE, TUNNEL WOUND TO 6 OCLOCK DIRECTION, MOIST, MILD ODOR, AKHIL WOUND SKIN WITH SCAR TISSUE INTACT. -PRESSURE INJURY UN-STAGEABLE, LEFT HEEL 2X2CM 100% THIN BROWN SCAB TISSUE, DRY, NO ODOR, AKHIL WOUND DRY, PEELING SKIN. -PRESSURE INJURY UN-STAGEABLE, RIGHT HEEL MULTIPLE THIN BROWN SCAB TISSUE WITH LARGEST 1.5X1CM DRY, NO ODOR, AKHIL WOUND DRY, PEELING SKIN. -LLQ ABD COLOSTOMY, AKHIL STOMA SKIN CLEAN AND INTACT, STOMA MOIST, BEEFY RED, ROUND SHAPE 2 1/2 (64MM), PROTRUSION 1.2 CM, LUMEN OPENING TO 3 OCLOCK RECOMMENDATIONS: CONTINUE PREVIOUS TX ORDER AND ADD THE FOLLOWING: -WOUND VAC DRESSING TO SACRALCOCCYX AND LEFT ISCHIAL WOUND WHEN AVAILABLE. -PRIMARY RN CONTINUE TEACHING WOUND CAR AND COLOSTOMY CARE. -OSTOMY CARE PER PROTOCOL AND DURING OSTOMY CARE PLEASE FOLLOW INSTRUCTION BELOW: -CHECK AKHIL STOMA SKIN CONDITION EVERY TIME WAFER CHANGED Q 5 DAYS AND PRN IF DISPLACED -APPLY SKIN PREP TO AKHIL-OSTOMY SKIN -APPLY STOMA ADHESIVE PAST TO THE WAFER, NEAR THE EDGE OF STOMA SKIN AREA, PAT FLAT. APPLY SKIN PREP TO AKHIL-STOMA SKIN - USE 2- PIECES VIKKI OSTOMY DEVICES WITH 2 1/2 (64MM), FLEX TO FIT THE STOMA EXACTLY. NO SKIN SHOWING. APPLY PRE-SHAPE WAFER TO OSTOMY AND ATTACHED POUCH TO WAFER. CHANGE WAFER Q5 DAYS. -EMPTY AND RINSE POUCH WHEN IT IS 1/2 FULL. CHANGE POUCH Q5 DAYS AND PRN IF LEAK -MAY DISCHARGE HOME WITH SUPPLIES FOLLOWIN COMPLETE POUCH CHANGES 1 TUBE OF STOMA ADHESIVE PASTE 1 BOTTLE OF STOMA ADHESIVE POWDER SKIN PREP WIPES
[2022-11-08] MEDS: GAUZE TP SCH (13:00)
[2022-11-08] MEDS: ALGINATE DRESSING MC SCH (13:00)
[2022-11-08] MEDS: CHLORHEXADINE GLUC 2% CLOTH TP SCH (15:00)
[2022-11-08] MEDS: MUPIROCIN CA NASAL 2% 1GM TUBE NS SCH (16:32)
--- NOTE | 2022-11-08 17:08 | NUR ---
WOUND CARE NOTE: WITH PRIMARY RN SMITH MARTINEZ VAC THERAPY DRESSING APPLY TO SACRALCOCCYX AND LEFT ISCHIAL WOUNDS, FOLLOW V.A.C. THERAPY CLINICAL GUIDELINES. SET THERAPY ON CONTINUOUS THERAPY AT 125 MMHG. PT. TOLERATE PROCEDURES WELL AND VAC IS FUNCTIONING. POC DISCUSSED WITH JUAN CHANGE DRESSING Q 72 HOURS AND PRN IF LEAKING. POC DISCUSSED WITH TELEGRAPHIC TYPEWRITER INSTALLER AND PT. TELEGRAPHIC TYPEWRITER INSTALLER TO FOLLOW UP WITH DISCHARGE SUPPLIES AND HOME HEALTH WOUND CARE.
--- NOTE | 2022-11-08 19:40 | NUR ---
ENDORSED PT TO MANAGER CHEMISTRY NURSE FOR CONTINUITY OF CARE. PT IS AWAKE, STABLE. CALL LIGHT WITHIN REACH.
[2022-11-08 20:00] VITALS: BP 98/57; PULSE 89; RESP 18; TEMP 98; O2SAT 96
[2022-11-08] MEDS ORDERED: VANCOMYCIN 750 MG in DEXTROSE 5% 250 ML IV SCH (21:00)
[2022-11-09] MEDS: BACLOFEN 10 MG TAB PO SCH ×3 (01:00→16:43)
[2022-11-09] MEDS: HYDROcodone/APAP 5/325 MG 1 TAB TAB PO PRN (03:26)
--- NOTE | 2022-11-09 03:27 | NUR ---
PT COMPLAINTS OF PAIN OF GENERAL BODY 10/23, NORCO ADMINISTERED.
--- NOTE | 2022-11-09 03:57 | NUR ---
REASSESSMENT OF PAIN. PT IS ASLEEP, NO FACIAL GRIMACING.
--- NOTE | 2022-11-09 05:30 | NUR ---
VANCOMYCIN IS NOT ADMINISTER DUE TO PT VANCO TROUGH = 21.4, CALLED [facility], HE STATED TO HOLD VANCOMYCIN 750MG IV FLUID AT THIS TIME, PHARMACY WILL COUNT FIRST AND WILL LET KNOW WHEN TO GIVE.
[2022-11-09] MEDS: NACL 0.9% 1,000 ML IV SCH ×3 (05:34→21:37)
--- NOTE | 2022-11-09 06:12 | NUR ---
RECEIVED ORDER FROM PHARMACY REGARDING VANCOMYCIN ORDER. NEW ORDER: VANCOMYCIN 1250MG EVERY 12 HRS, NEXT DOSE WILL START AT 1300.
--- NOTE | 2022-11-09 07:20 | NUR ---
RECEIVED PATIENT FROM PM NURSE FOR CONTINUATION OF CARE
[2022-11-09 08:00] VITALS: BP 101/68; PULSE 80; PULSE 89; PULSE 90; RESP 17; TEMP 97.1; O2SAT 80
[2022-11-09] MEDS: QUEtiapine FUMARATE 100 MG TAB PO SCH ×2 (10:10→21:39)
[2022-11-09] MEDS: PANTOPRAZOLE 40 MG TABEC PO SCH (10:11)
[2022-11-09] MEDS: MIDODRINE 5 MG TAB PO SCH ×3 (10:12→17:00)
[2022-11-09] MEDS: HYDROmorphone 1 MG/ML AMP IVP PRN ×3 (10:15→20:46)
[2022-11-09] MEDS: MEROPENEM 1,000 MG in NACL 0.9% 50 ML IV SCH ×2 (10:28→21:37)
[2022-11-09] MEDS: ALGINATE DRESSING MC SCH (13:00)
[2022-11-09] MEDS ORDERED: VANCOMYCIN 1.25GM PREMIX 250 ML IV SCH (13:00)
[2022-11-09] MEDS: VANCOMYCIN 750 MG in DEXTROSE 5% 250 ML IV SCH ×2 (13:04→16:48)
--- NOTE | 2022-11-09 13:46 | NUR ---
11/09/22 RD FOLLOW UP COMPLETED PLEASE REFER TO NUTRITION ASSESSMENT UNDER CARE ACTIVITY FOR ESTIMATED NUTRITIONAL NEEDS. 1. CONTINUE REGULAR DIET TOLERATED. 2. CONTINUE PROSOURCE BID FOR WOUNDS WHICH PROVIDES 120 CALORIES AND 30 GRAMS OF PROTEIN. 3. CONTINUE ENSURE BID FOR WEIGHT GAIN WHICH WILL PROVIDE 700 CALORIES AND 40 GRAMS OF PROTEIN. 4. RD TO FOLLOW-UP 7 DAYS, LOW RISK CASSIE NICOLE, RD
--- NOTE | 2022-11-09 19:31 | NUR ---
endorsed patient to pm nurse for continuation of care. colostomy bag replace, jefferson catherter emptied
--- NOTE | 2022-11-09 19:35 | NUR ---
RECEIVED PATIENT FROM ESTEBAN ZAMAN FOR CONTINUITY OF CARE. PT IS STABLE
[2022-11-09 20:00] VITALS: BP 105/56; PULSE 91; RESP 18; TEMP 98.4; O2SAT 94
--- NOTE | 2022-11-09 23:55 | NUR ---
NOTIFIED OUTSIDE PHARMACY REGARDING VANCO TROUGH OF 21.4. PHARMACY SAID NO NEED FOR ANOTHER TROUGH NAND CONTINUE WITH CURRENT VANCOMYCIN DOSAGE
[2022-11-10] MEDS: VANCOMYCIN 750 MG in DEXTROSE 5% 250 ML IV SCH ×2 (01:35→11:16)
[2022-11-10] MEDS: BACLOFEN 10 MG TAB PO SCH ×2 (01:37→09:10)
[2022-11-10] MEDS: NACL 0.9% 1,000 ML IV SCH (05:55)
--- NOTE | 2022-11-10 07:12 | NUR ---
ENDORSED PT TO AM NURSE FOR CONTINUITY OF CARE. PT IS STABLE
[2022-11-10] MEDS: MIDODRINE 5 MG TAB PO SCH ×2 (09:00→13:00)
[2022-11-10] MEDS: QUEtiapine FUMARATE 100 MG TAB PO SCH (09:00)
[2022-11-10] MEDS: PANTOPRAZOLE 40 MG TABEC PO SCH (09:10)
[2022-11-10] MEDS: MEROPENEM 1,000 MG in NACL 0.9% 50 ML IV SCH (09:10)
[2022-11-10] MEDS: HYDROmorphone 1 MG/ML AMP IVP PRN ×2 (09:11→14:14)
[2022-11-10] MEDS: GAUZE TP SCH ×2 (10:00→13:00)
[2022-11-10] MEDS: ALGINATE DRESSING MC SCH (13:00)
== END 2022-11-10 15:35 | disposition home health service (06) | DRG 853 ==
LOC: MED 16:44 → MIC 22:04 → MTU 11-02 15:00
PROVIDERS: ADMIT Student in an Organized Health Care Education/Training Program; ATTEND Student in an Organized Health Care Education/Training Program
PROC: 02HV33Z Insertion of Infusion Device into Superior Vena Cava, Percutaneous Approach (ICD-10-PCS; 2022-11-01)
PROC: B548ZZA Ultrasonography of Superior Vena Cava, Guidance (ICD-10-PCS; 2022-11-01)
PROC: 0D1N4Z4 Bypass Sigmoid Colon to Cutaneous, Percutaneous Endoscopic Approach (ICD-10-PCS; principal; 2022-11-05 10:20)
DX: A41.81 Sepsis due to Enterococcus (principal); E43 Unspecified severe protein-calorie malnutrition; L89.154 Pressure ulcer of sacral region, stage 4; N39.0 Urinary tract infection, site not specified; G82.20 Paraplegia, unspecified; M86.8X8 Other osteomyelitis, other site; E87.1 Hypo-osmolality and hyponatremia; Z68.1 Body mass index [BMI] 19.9 or less, adult; Z20.822 Contact with and (suspected) exposure to COVID-19; R65.20 Severe sepsis without septic shock; M60.9 Myositis, unspecified; E11.69 Type 2 diabetes mellitus with other specified complication; M25.452 Effusion, left hip; J45.909 Unspecified asthma, uncomplicated; D64.9 Anemia, unspecified; E87.6 Hypokalemia
CPT/HCPCS: 36415; 71045; 80048; 80053; 80202; 80305; 81001; 82374; 82550; 82948; 83605; 83735; 83880; 84100; 84484; 85025; 85610; 85730; 87040; 87070; 87075; 87081; 87086; 87205; 93005; 96374; 96375; 99291; A4649; J1170; J2001; J2185; J2405; J2543; J2704; J2710; J3010; J3370; J3372; J3490; J7030; J7060; J7120; Q0092; Q9967

== ENCOUNTER 2022-11-15 21:50 | Inpatient (IN) | payer OTHER ==
[~2022-11-15] VITALS: Ht 188 cm; Wt 70.3 kg
[~2022-11-15 21:50] MED LIST changes: -PIPE1SOL IV; -PRO5 NG
[2022-11-15 22:20] VITALS: BP 115/82; PULSE 135; RESP 19; TEMP 98.6; O2SAT 96
--- NOTE | 2022-11-15 22:24 | NUR ---
TO LOBBY A/W BED VIA W/C
--- NOTE | 2022-11-16 00:06 | NUR ---
PT TAKEN TO BED 11
--- NOTE | 2022-11-16 00:07 | NUR ---
RECEIVED IN BED 11 WITH C/O BODYACHES, WOUND ON HIS BUTTOCKS FOR 4 DAYS. PMH : QUADRIPLEGIA
--- NOTE | 2022-11-16 00:33 | NUR ---
Dr. Mackay examining patient.
[2022-11-16] MEDS ORDERED: KETOROLAC 30 MG/ML VIAL IVP ONE (00:40)
[2022-11-16] MEDS ORDERED: NACL 0.9% 2,000 ML IV ONE (00:40)
[2022-11-16] MEDS ORDERED: MEROPENEM 1,000 MG in NACL 0.9% 50 ML IV ONE (00:40)
[2022-11-16] MEDS ORDERED: ACETAMINOPHEN EXTRA STRENGTH 500 MG TAB PO ONE (00:40)
[2022-11-16] MEDS ORDERED: MEROPENEM 1,000 MG VIAL IV ONE (01:05)
[2022-11-16 01:11] LABS: BASOPHILS # (AUTO) 0.2 K/uL (0.00-0.22); BASOPHILS % (AUTO) 1.1 % (0.0-2.0); EOSINOPHILS # (AUTO) 0.1 K/uL (0-0.4); EOSINOPHILS % (AUTO) 0.6 % (0.0-4.0); HEMATOCRIT 26.3 % (36-52); HEMOGLOBIN 8.1 g/dL (12.0-18.0); LYMPHOCYTES % (AUTO) 7.3 % (20.5-51.1); MEAN CORPUSCULAR HEMOGLOBIN 21 pg (27-31); MEAN CORPUSCULAR HGB CONC 31 g/dL (33-37); MEAN CORPUSCULAR VOLUME 67.6 fL (80-94); MONOCYTES # (AUTO) 0.9 K/uL (0.8-1.0); MONOCYTES % (AUTO) 6.2 % (1.7-9.3); NEUTROPHILS # (AUTO) 11.8 K/uL (1.8-7.7); NEUTROPHILS % (AUTO) 84.8 % (42.2-75.2); PLATELET COUNT (AUTO) 537 K/uL (140-450); RED BLOOD CELL COUNT(AUTO) 3.89 MIL/uL (4.20-6.10); WHITE BLOOD COUNT (AUTO) 13.9 K/uL (4.8-10.8)
[2022-11-16 01:31] LABS: ALBUMIN 2.1 g/dL (3.4-5.0); ANION GAP 13.8 (8-16); CARBON DIOXIDE 28.7 mmol/L (21-32); CREATININE 0.5 mg/dL (0.6-1.3); POTASSIUM 3.5 mmol/L (3.5-5.1); TOTAL BILIRUBIN 0.2 mg/dL (0.0-1.0)
--- NOTE | 2022-11-16 01:38 | NUR ---
X-Ray at bedside.
[2022-11-16 02:25] LABS: APPEARANCE,URINE CLOUDY (CLEAR); BILIRUBIN,URINE NEGATIVE (NEGATIVE); BLOOD, URINE 3+ (NEGATIVE); COLOR,URINE YELLOW (YELLOW); LEUKOCYTE ESTERASE ,URINE 1+ (NEGATIVE); NITRITE, URINE POSITIVE (NEGATIVE); UGLUCOSE NEGATIVE (NEGATIVE)
[2022-11-16 02:36] LABS: RBC,URINE 0-5 /HPF (0-5)
[2022-11-16] MEDS ORDERED: HYDROcodone/APAP 5/325 MG 1 TAB TAB PO PRN (03:20)
[2022-11-16] MEDS ORDERED: ONDANSETRON 4 MG/2 ML VIAL IVP PRN (03:20)
[2022-11-16] MEDS ORDERED: ACETAMINOPHEN 325 MG TAB PO PRN (03:20)
[2022-11-16] MEDS ORDERED: LORazepam 2 MG/ML VIAL IVP PRN (03:20)
[2022-11-16] MEDS ORDERED: MORPHINE SULFATE 2 MG/ML SYR IVP PRN (03:20)
[2022-11-16] MEDS ORDERED: cefTRIAXone 1,000 MG VIAL ONE (03:51)
--- NOTE | 2022-11-16 04:15 | NUR ---
Patient will be admitted to care of Dr. Mason. Admited to Telemetry. Will go to room 113A. Belongings list completed. Report to Chidi STOLL.
[2022-11-16 04:50] VITALS: BP 152/105; PULSE 109; PULSE 83; RESP 18; TEMP 98; O2SAT 98
--- NOTE | 2022-11-16 05:00 | NUR ---
RECEIVED REPORT FROM ER NURSE MATI FOR CONTINUITY OF CARE. PATIENT IS A&O X4. PATIENT IS ON ROOM AIR; BREATHING IS NORMAL WITH SYMMETRICAL RISE AND FALL OF CHEST. IV IS A 18G EJ; NO FLUIDS RUNNING. PATIENT IS LYING SUPINE IN BED. BED IS IN LOWEST POSITION, WHEELS LOCKED, CALL LIGHT IN PLACE. WILL CONTINUE TO OBSERVE PATIENT.
--- NOTE | 2022-11-16 06:37 | NUR ---
PATIENT WAS COOPERATIVE DURING ADMISSION. PATIENT COMPLAINED ABOUT PAIN 9/10. CHECKED PATIENT'S VITALS AND CHART; MORPHINE WAS APPROPRIATE. MEDICATION WAS ADMINISTERED SUCCESSFULLY TO PATIENT. REASSESSED PATIENT'S PAIN; PATIENT STATED PAIN 3/10. MEDICATION SUCCESSFUL. WILL CONTINUE TO OBSERVE PATIENT.
--- NOTE | 2022-11-16 07:24 | NUR ---
ENDORSED TO DAY SHIFT NURSE JONATHON FOR CONTINUITY OF CARE. PATIENT IS STABLE.
--- NOTE | 2022-11-16 07:30 | NUR ---
RECEIVED PATIENT FROM NURSE FOR CONINTUATION OF CARE. PATIENT SEEN. PATIENT REQUESTS FOR BACLOFEN THAT PATIENT TAKES DAILY. MD INFORMED
[2022-11-16 08:00] VITALS: BP 153/82; PULSE 89; PULSE 98; RESP 18; TEMP 96.8; TEMP 98.3; O2SAT 98
[2022-11-16] MEDS ORDERED: BACLOFEN 10 MG TAB PO PRN (10:50)
[2022-11-16] MEDS: HYDROmorphone 1 MG/ML AMP IVP PRN ×2 (11:29→21:19)
[2022-11-16] MEDS: NACL 0.9% 1,000 ML IV SCH ×2 (11:36→20:00)
[2022-11-16] MEDS ORDERED: ALGINATE DRESSING MC SCH (13:00)
[2022-11-16] MEDS: BACLOFEN 10 MG TAB PO SCH ×2 (13:15→17:00)
[2022-11-16 16:00] VITALS: BP 131/78; PULSE 98; RESP 18; TEMP 98; O2SAT 100
--- NOTE | 2022-11-16 19:23 | NUR ---
ENDORSED PATIENT TO PM NURSE FOR CONTINUITY OF CARE
--- NOTE | 2022-11-16 19:30 | NUR ---
RECEIVED REPORT FROM DAY SHIFT NURSE JONATHON FOR CONTINUITY OF CARE. PATIENT IS A&O X4. PATIENT IS ON ROOM AIR, BREATHING IS NORMAL WITH SYMMETRICAL RISE AND FALL OF CHEST. IV IS A 18G EJ; RUNNING NS 60. PATIENT IS SLEEPING IN SUPINE. BED IS IN LOWEST POSITION, WHEELS LOCKED CALL LIGHT IN PLACE. WILL CONTINUE TO OBSERVE PATIENT.
[2022-11-16 20:00] VITALS: BP 134/82; PULSE 99; RESP 18; TEMP 98.8; O2SAT 99
[2022-11-16] MEDS: QUEtiapine FUMARATE 100 MG TAB PO SCH (21:17)
--- NOTE | 2022-11-16 21:50 | NUR ---
PATIENT REQUESTED DILUADID FOR PAIN. CHECKED PATIENT'S CHART AND VITALS; DILAUDID WAS APPROPRIATE TO ADMINISTER. MEDICATION ADMINISTERED SUCCESSFULLY WITHOUT ANY ISSUES WITH IV. 2100 MEDICATION WAS ADMINISTERED WITHOUT ANY ISSUES. CHECKED PATIENT'S WOUND; WOUND HAD COPIOUS AMOUNT OF DRAINAGE ON CHUCKS. ADMINISTERED WOUND CARE TO PATIENT WITH ASSISTANCE FROM LEANDRA LONDON. RINSED WOUND WITH NS, PAT DRIED, AND APPLIED FOAM DRESSINGS ON WOUNDS; AND LAID DOWN NEW CHUCKS PADS UNDER PATIENT. PATIENT THANKED US FOR WOUND CARE. PATIENT'S BREATHING IS NORMAL WITH SYMMETRICAL RISE AND FALL OF CHEST. WILL CONTINUE TO OBSERVE PATIENT.
--- NOTE | 2022-11-16 22:25 | NUR ---
LOOKED IN ON PATIENT TO REASSESS PAIN MEDICATION EFFECTIVENESS. PATIENT WAS SLEEPING. MEDICATION WAS EFFECTIVE. WILL CONTINUE TO OBSERVE PATIENT.
--- NOTE | 2022-11-17 01:30 | NUR ---
LOOKED IN ON PATIENT. PATIENT WAS SLEEPING, LYING SUPINE. BREATHING WAS NORMAL WITH SYMMETRICAL RISE AND FALL OF CHEST. IV IS RUNNING. WILL CONTINUE TO OBSERVE PATIENT.
--- NOTE | 2022-11-17 04:54 | NUR ---
ADMINISTERED 0320 IVPB TO PATIENT. MEDICATION STARTED SUCCESSFULLY WITHOUT ANY ISSUES WITH IV. WAS INFORMED BY LEANDRA LONDON THAT PATIENT REFUSED VITALS; STATING NOT TO BOTHER HIM. PATIENT IS CURRENTLY SLEEPING, LYING SUPINE. PATIENT'S BREATHING IS NORMAL WITH SYMMETRICAL RISE AND FALL OF CHEST. WILL CONTINUE TO OBSERVE PATIENT.
--- NOTE | 2022-11-17 05:49 | NUR ---
WAS INFORMED BY PERSONALIZED LIVING MANAGER NURSE THAT PATIENT REFUSED MORNING LAB DRAWS; NOT WANTING TO BE POKED. WILL ENDORSE TO DAY SHIFT NURSE.
--- NOTE | 2022-11-17 07:15 | NUR ---
RECEIVED REPORT FROM ASSOCIATE APPLICATION DEVELOPER NURSE, SURYA, FOR CONTINUITY OF CARE. PT IN BED, WITH HIS HEAD COVERED WITH BLANKET. REFUSING TO LET STAFF CHECK ON HIM. PT YELLING AT STAFF AT THIS TIME, CURSING. PT ALSO REFUSING VS AT THIS TIME. PT ALSO REFUSING LAB DRAWS AT THIS TIME. PT IS ALERT AND ORIENTED X4, ABLE TO VERBALIZE NEEDS, ABLE TO FOLLOW BASIC COMMANDS. PT HAS HX OF QUADRIPLEGIA, COLOSTOMY, AND SUPRAPUBIC CATHETER. PT IS ON REGULAR DIET, TOLERATING WELL. PT HAS LARGE SACRAL WOUND, RECEIVING TX. PT HAS IV TO EJ WITH NS RUNNING AT 60ML/HR. PT IS ON CONTACT PRECAUTIONS FOR ESBL IN URINE WELL WOUND. CALL LIGHT WITHIN REACH. ALL SAFETY MEASURES IN PLACE.
[2022-11-17] MEDS: NACL 0.9% 1,000 ML IV SCH (07:49)
--- NOTE | 2022-11-17 07:58 | NUR ---
ENDORSED TO DAY SHIFT NURSE STEPHEN FOR CONTINUITY OF CARE. PATIENT IS STABLE.
[2022-11-17 08:00] VITALS: PULSE 97; RESP 20; O2SAT 99
--- NOTE | 2022-11-17 08:00 | NUR ---
Patient's Plan of Care was discussed and reviewed with BOOK PUBLISHER: Makayla
[2022-11-17] MEDS: ERTAPENEM SODIUM 1,000 MG in NACL 0.9% 50 ML IV SCH (09:00)
--- NOTE | 2022-11-17 09:21 | NUR ---
PATIENT HAS BEEN SCREENED AND CATEGORIZED HIGH NUTRITION RISK. PATIENT WILL BE SEEN WITHIN 1-2 DAYS OF ADMISSION. 11/17/22-11/18/22 FNS CONSULT RECEIVED FOR PATIENT FOR WOUND/PRESSURE ULCER ON 11/17/22. CASSIE NICOLE RD
--- NOTE | 2022-11-17 10:15 | NUR ---
ADMINISTERED SCHEDULED MEDICATIONS. PT UPSET AT THIS TIME, STATES HE WANTS DILAUDID. ATTEMPTED TO DO PAIN SCALE, PT REFUSED. ATTEMPTED TO TAKE PT VS, PT REFUSED. EXPLAINED TO PT THAT IN ORDER TO GIVE MEDICATIONS, NEEDED TO PERFORM PAIN SCALE ASSESSMENT WELL VS. PT ALLOWED STAFF TO DO SO. PT CONTINUES TO BE RUDE TO STAFF AND CURSE AT STAFF.
[2022-11-17] MEDS: BACLOFEN 10 MG TAB PO SCH ×3 (10:21→17:38)
[2022-11-17] MEDS: QUEtiapine FUMARATE 100 MG TAB PO SCH ×2 (10:21→21:00)
[2022-11-17] MEDS: FERROUS SULFATE 325 MG TABEC PO SCH (10:21)
[2022-11-17] MEDS: SULFAMETH/TRIMETH DS 800/160MG 1 TAB PO SCH ×2 (10:21→21:00)
[2022-11-17] MEDS: HYDROmorphone 1 MG/ML AMP IVP PRN ×2 (10:39→20:14)
--- NOTE | 2022-11-17 11:26 | NUR ---
PT YELLING FOR NURSE. WENT TO CHECK ON PT. PT UPSET, STATING HE WANTS TO GET CHANGED AND WANTS NURSE TO "MOVE MY DAMN LEGS AROUND LIKE THEY ARE SUPPOSED TO". PT LEGS VERY HEAVY, PT UNABLE TO ASSIST, EXPLAINED TO PT THAT MORE ASSISTANCE IS NEEDED TO REPOSITION AND MOVE LEGS. PT UPSET, YELLING AT NURSE "GOD DAMMIT, IF YOU CAN'T DO YOUR JOB, YOU SHOULDN'T BE HERE. GET THE HELL OUT".
--- NOTE | 2022-11-17 14:05 | NUR ---
PT REFUSED MED BACLOFEN, PT STATES "I TAKE THAT MEDICINE EVERY 8 HOURS, NOT EVERY 4 OR WHENEVER YOU WANT TO GIVE IT TO ME". EDUCATED PT ON MEDICATION ADMINISTRATION SCHEDULE. PT CONTINUES TO REFUSE THIS DOSE. STATES HE WILL TAKE NEXT DOSE DUE AT 1700.
--- NOTE | 2022-11-17 14:39 | NUR ---
LAB CALLED TO INFORM NURSE THAT PT REFUSED LAB DRAWS AGAIN. WILL INFORM
[2022-11-17 16:00] VITALS: BP 128/75; PULSE 84; RESP 18; TEMP 98; O2SAT 100
--- NOTE | 2022-11-17 16:41 | NUR ---
Manager Operational SIGNS CLEANER met with pt. at bedside. Pt. was irritated and barely participated. The answers on the discharge planning assessment are limited as pt. did not want to complete interview. Pt. stated he resides alone and received SSI. Pt. just wanted to be left alone. SIGNS CLEANER will remain available as needed.
--- NOTE | 2022-11-17 16:42 | NUR ---
NURSE AND CLAIMS AGENT RIGHT OF WAY ATTEMPTED TO CHANGE PT, REPOSITION, AND DO WOUND DRESSING CHANGE. PT REFUSED. CURSING AT STAFF.
--- NOTE | 2022-11-17 19:12 | NUR ---
ENDORSED PT TO FOOD MANAGEMENT AIDE NURSEADE, FOR CONTINUITY OF CARE. PT IS STABLE. ENDORSED PICC LINE PLACEMENT TO FOOD MANAGEMENT AIDE NURSE, AND INFORMED NURSE OF PT REFUSING CARE.
--- NOTE | 2022-11-17 19:13 | NUR ---
RECD. RESTING IN BED, AWAKE, A/OX4. RESPIRATION EVEN AND UNLABORED. IV OF NS INFUSING AT 60 ML/HR, LEFT IJ . HAVE NOT EATEN HIS LUNCH AND DINNER. ENCOURAGED TO EAT. WITH SUPRAPUBIC CATHETER CONNECTED TO F/C BAG DRAINING CLEAR YELLOW URINE. PATIENT REFUSED SACRAL WOUND TO BE CHECKED. DENIES PAIN 0/10. AWARE ABOUT PLAN PICC LINE PLACEMENT TONIGHT. DENIES PAIN 0/10.
[2022-11-17 20:00] VITALS: BP 120/76; PULSE 92; PULSE 97; RESP 18; RESP 20; TEMP 97.8; TEMP 98.7; O2SAT 96; O2SAT 99
--- NOTE | 2022-11-17 20:00 | NUR ---
PICC LINE NURSE RUBY CAME TO PUT ON THE PICC LINE. PATIENT REQUESTED DILAUDID TO BE GIVEN BEFORE PICC LINE PLACEMENT.
--- NOTE | 2022-11-17 20:30 | NUR ---
REQUESTED BEDSIDE TABLE TO BE PUT NEAR HIS LEFT SIDE. ABLE TO EAT BY HIMSELF 50% OF DINNER. REQUESTS FOR PUDDING, ICE WATER AND BLANKET GIVEN.
--- NOTE | 2022-11-17 21:32 | NUR ---
REFUSED SCHEDULED NIGHT MEDICATIONS. EXPLAINED THE IMPORTANCE OF TAKING THIS MEDS BUT STILL REFUSED. STATED "I WANT BACLOFEN.". EXPLAINED THAT HE HAS ALREADY TAKEN THE DOSES FOR THE DAY.
--- NOTE | 2022-11-17 22:17 | NUR ---
PICC LINE IS OK TO BE USED PER X-RAY RESULT.
--- NOTE | 2022-11-17 23:00 | NUR ---
SLEEPING COMFORTABLY IN BED. RESPIRATION EVEN AND UNLABORED.
[2022-11-18 02:28] VITALS: BP 151/90; PULSE 88; RESP 18; TEMP 98; O2SAT 96
[2022-11-18] MEDS: HYDROmorphone 1 MG/ML AMP IVP PRN ×4 (02:28→23:43)
--- NOTE | 2022-11-18 02:28 | NUR ---
REQUESTING FOR BOTH DILAUDID AND BACLOFEN. EXPLAINED THAT HE CANNOT HAVE BOTH PAIN MEDICATION. PAIN MEDICATION ADMINISTERED BY DUANE STOLL PER MD ORDER.
--- NOTE | 2022-11-18 04:30 | NUR ---
STILL SLEEPING COMFORTABLY IN BED. WITH GOOD URINE OUTPUT FROM THE F/C BAG, ABLE TO OBTAINED 1,400 ML CLEAR YELLOW URINE.
[2022-11-18] MEDS: NACL 0.9% 1,000 ML IV SCH ×2 (06:01→22:16)
--- NOTE | 2022-11-18 07:18 | NUR ---
RECEIVED PT FROM BAKER BREAD NURSE FOR CONTINUITY OF CARE. PT IS AWAKE, AOX4. PT ABLE TO VERBALIZE NEEDS. PT STATES " I NEED MY BACLOFEN". RESPIRATIONS EVEN AND UNLABORED ON RA. SUPRAPUBIC CATH IN PLACE DRAINING TO GRAVITY. LIJ, AND PICC LINE INFUSING NS @ 60. CALL LIGHT WITHIN REACH. ALL SAFETY PRECAUTIONS IN PLACE.
[2022-11-18 08:00] VITALS: BP 120/73; PULSE 95; RESP 18; TEMP 99; O2SAT 95
[2022-11-18] MEDS: SULFAMETH/TRIMETH DS 800/160MG 1 TAB PO SCH ×2 (08:18→20:15)
[2022-11-18] MEDS: BACLOFEN 10 MG TAB PO SCH ×3 (08:18→16:57)
[2022-11-18] MEDS: FERROUS SULFATE 325 MG TABEC PO SCH (08:18)
[2022-11-18] MEDS: QUEtiapine FUMARATE 100 MG TAB PO SCH ×2 (08:19→20:16)
--- NOTE | 2022-11-18 08:23 | NUR ---
WENT INTO ROOM TO ADMINISTER SCHEDULED MEDICATIONS, PT STATES "IM ONLY GOING TO TAKE BACLOFEN I DONT NEED ANY OF THE OTHER MEDS, I DONT BELIEVE THAT THEYRE REALLY NECESSARY BECAUSE I DONT TAKE THEM AT HOME" PROVIDED PT TEACHING REGARDING USES AND IMPORTANCE OF SCHEDULED MEDS TAKEN PRESCRIBED. PT AGREED TO TAKE IRON, BACLOFEN AND BACTRIM. PT REFUSED OTHER SCHEDULED MEDS.
--- NOTE | 2022-11-18 09:00 | NUR ---
MAKING ROUNDS, PATIENT REFUSED BEING REPOSITIONED, STATES "DOES IT HAVE TO BE RIGHT NOW, COME BACK LATER I DONT WANT TO BE MOVED". PT EDUCATION PROVIDED ON IMPORTANCE OF REPOSITIONING, PATIENT STATES " OKAY, BUT NOT RIGHT NOW COME BACK AFTER I AM DONE WITH LUNCH"
[2022-11-18] MEDS: ERTAPENEM SODIUM 1,000 MG in NACL 0.9% 50 ML IV SCH (09:54)
[2022-11-18] MEDS ORDERED: SULF-954 PO (10:21)
--- NOTE | 2022-11-18 11:28 | NUR ---
WOUND CARE NOTE: SKIN ASSESSMENT DONE WITH PRIMARY NURSE AMIE. PT. ADMITTED WITH SACRAL AND LEFT ISCHIAL AND HEELS PRESSURE INJURIES. PT. REFUSED WOUND PHOTO UPON ADMISSION, PER PT. NOT IN A GOOD MOOD. PT IS AAX4, WOUND CARE POC DISCUSSED. PER PT. HE IS GOING TO SNF. POC DISCUSSED WITH PATSY WHEEL PRESS CLERK. PT. IS ACCEPT TO [facility]. PT. WITH LOW ALAN SCALE AT VERY HIGH RISK FOR NEW SKIN BREAKS, CONTINUE TO FOLLOW PRESSURE INJURY PREVENTION INTERVENTIONS. INTEGUMENTARY: -SUPRAPUBIC CATH, AKHIL-STOMA SKIN DRY AND CLEAN. -PRESSURE INJURY STAGE 4, SACROCOCCYX [id number], UNDERMINING TO 12 O'CLOCK DIRECTION 4.5 CM DEEP. WOUND BED 90% RED GRANULATION TISSUE.10% THIN YELLOW SLOUGH TISSUE. MODERATE AMOUNT SEROUS DRAINAGE, NO ODOR, AKHIL-WOUND SKIN MOIST, SURROUNDING NON-BLANCHABLE REDNESS DENUDED SKIN OBSERVED -PRESSURE INJURY STAGE 3, LEFT BUTTOCK 3X1X0.1CM WOUND, 100% GRANULATING TISSUE, MOIST, NO ODOR, AKHIL WOUND SKIN DRY INTACT. -PRESSURE INJURY STAGE 4, LEFT ISCHIAL 1.5X2.5X4.5CM TUNNEL WOUND, 100% GRANULATING TISSUE, TUNNEL WOUND TO 6 OCLOCK DIRECTION, MOIST, NO ODOR, AKHIL WOUND SKIN WITH SCAR TISSUE INTACT. -PRESSURE INJURY UN-STAGEABLE, LEFT HEEL 1.5X1.5CM 100% THIN BROWN SCAB TISSUE, DRY, NO ODOR, AKHIL WOUND DRY, PEELING SKIN. -PRESSURE INJURY UN-STAGEABLE, RIGHT HEEL MULTIPLE THIN BROWN SCAB TISSUE WITH LARGEST 1X1CM DRY, NO ODOR, AKHIL WOUND DRY, PEELING SKIN. -LLQ ABD COLOSTOMY, AKHIL STOMA SKIN CLEAN AND INTACT, STOMA MOIST, BEEFY RED, ROUND SHAPE 2 1/2 (64MM), PROTRUSION 1.2 CM, LUMEN OPENING TO 3 OCLOCK RECOMMENDATIONS: -CLEANSE LEFT BUTTOCK, LEFT ISCHIAL AND SACRALCOCCYX WOUNDS WITH NS, PAT DRY, PACK WOUNDS WITH ALGINATE DRESSING AND Z GUARD TO AKHIL WOUND SKIN, COVER WITH DRY DRESSING QD AND PRN IF SOILING -PAINT LEFT AND RIGHT HEELS SCABS WITH BETADINE SWAP STICK BID AND PROSTHETIC DENTIST -POSITIONING: TURN AND REPOSITION PATIENT Q 2H OR SOONER USE PILLOWS TO KEEP BONY PROMINENCES FROM DIRECT CONTACT WITH SURFACES USE REPOSITIONING WEDGES TO PROVIDE 30-DEGREE ANGLE FOR SIDE LYING POSITIONS OFFLOADING OR FOAM DRESSING TO ALL TUBING TO PREVENT MEDICAL DEVICES RELATED PRESSURE INJURY -RE-EVALUATING AND MANAGING INCONTINENCE MONITOR SKIN CONDITION DURING POSITION CHANGE DO NOT MASSAGE REDNESS, BONY PROMINENCES FREQUENT AKHIL-CARE AND PROVIDE BARRIER CREAMS PRN IF SOILING MOISTURE CONTROL BY SUPRAPUBIC CATH, COLOSTOMY BAG, KEEP SKIN DRY AND PROTECT FROM FRICTION -MANAGE FRICTION/SHEAR/MOBILITY KEEP HOB AT THE LOWEST LEVEL OF ELEVATION NO MORE THAN 30 DEGREE UNLESS OTHERWISE CONTRAINDICATED USE LIFT SHEET OR TRANSFER DEVICE TO MOVE PATIENT AND PREVENT LATERAL SHEER. PROTECT HEELS, ELBOWS BONY PROMINENCES WITH SKIN BERRIES OR FOAM DRESSING IF EXPOSED TO FRICTION OFFLOAD BILATERAL HEELS BY PLACING PILLOWS UNDER CALVES AT ALL TIMES, UNLESS OTHERWISE CONTRAINDICATED -PRESSURE REDISTRIBUTION SURFACE THERAPY MARK ISOFLEX ROGELIO MATTRESS -NUTRITION: PLEASE FOLLOW RD RECOMMENDATIONS AND OFFER NUTRITION SUPPLEMENTS IF ORDERED.
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
[2022-11-18] MEDS ORDERED: ALGINATE DRESSING MC PRN (12:35)
--- NOTE | 2022-11-18 13:14 | NUR ---
11/18/22 RD INITIAL ASSESSMENT COMPLETED PLEASE REFER TO NUTRITION ASSESSMENT UNDER CARE ACTIVITY FOR ESTIMATED NUTRITIONAL NEEDS. 1. CONTINUE REGULAR DIET TOLERATED 2. RD RECOMMENDS PROSOURCE BID FOR WOUNDS THIS WILL PROVIDE 120 CALORIES AND 30 GRAMS OF PROTEIN. 3. RD RECOMMENDS ENSURE BID WHICH WILL PROVIDE 700 CALORIES AND 40 GRAMS OF PROTEIN. 4. RD TO FOLLOW-UP 7 DAYS, LOW RISK CASSIE NICOLE, RD
--- NOTE | 2022-11-18 13:36 | NUR ---
FNS CONSULT FOR PATIENT FOR PRESSURE WOUNDS RECEIVED ON 11/18/22. PATIENT WAS SEEN TODAY 11/18/[address] AND RECOMMENDATION FOR NUTRITIONAL WOUND CARE ADDED. CASSIE NICOLE RD
[2022-11-18] MEDS: GAUZE TP SCH (13:40)
[2022-11-18] MEDS: Z-GUARD PASTE TP SCH (13:40)
[2022-11-18] MEDS: ALGINATE DRESSING MC SCH (13:42)
[2022-11-18 14:02] LABS: BASOPHILS # (AUTO) 0.1 K/uL (0.00-0.22); BASOPHILS % (AUTO) 2.1 % (0.0-2.0); EOSINOPHILS # (AUTO) 0.3 K/uL (0-0.4); EOSINOPHILS % (AUTO) 6.3 % (0.0-4.0); HEMATOCRIT 22.5 % (36-52); LYMPHOCYTES # (AUTO) 1.1 K/uL (2.0-11.5); LYMPHOCYTES % (AUTO) 21.7 % (20.5-51.1); MEAN CORPUSCULAR HEMOGLOBIN 21 pg (27-31); MEAN CORPUSCULAR HGB CONC 31 g/dL (33-37); MEAN CORPUSCULAR VOLUME 68.3 fL (80-94); MONOCYTES # (AUTO) 0.4 K/uL (0.8-1.0); MONOCYTES % (AUTO) 7.6 % (1.7-9.3); NEUTROPHILS # (AUTO) 3.1 K/uL (1.8-7.7); NEUTROPHILS % (AUTO) 62.3 % (42.2-75.2); PLATELET COUNT (AUTO) 426 K/uL (140-450); RED BLOOD CELL COUNT(AUTO) 3.29 MIL/uL (4.20-6.10); RED CELL DISTRIBUTION WIDTH 20.2 % (11.6-13.7); WHITE BLOOD COUNT (AUTO) 4.9 K/uL (4.8-10.8)
[2022-11-18 14:08] LABS: ANION GAP 8.5 (8-16); CARBON DIOXIDE 30.2 mmol/L (21-32); CREATININE 0.5 mg/dL (0.6-1.3); POTASSIUM 3.7 mmol/L (3.5-5.1)
[2022-11-18 14:12] LABS: MAGNESIUM 1.7 mg/dL (1.8-2.4); PHOSPHORUS 3.9 mg/dL (2.5-4.9)
[2022-11-18 16:00] VITALS: BP 113/75; PULSE 98; RESP 18; TEMP 99.4; O2SAT 95
[2022-11-18] MEDS ORDERED: MAG SULF 2000 MG/WATER PREMIX 50 ML IV SCH (16:30)
--- NOTE | 2022-11-18 16:59 | NUR ---
PT INFORMED HE IS BEING TRANSFERRED TO [facility] AND TRANSPORTATION WILL BE PICKING HIM UP. PT STARTS TO YELL "I AM NOT LEAVING WITHOUT MY CAR. I AM GOING TO DRIVE MYSELF TO [facility]" RETAIL RESET MERCHANDISER MIC INFORMED, STATES [facility] WILL NOT ALLOW TRANSFER IF PT DRIVES HIMSELF. PT INFORMED OF TRANSFER NOT BEING ABLE TO TAKE PLACE IF PT DRIVES HIMSELF, PT YELLS " I HAVE SOME ERRANDS TO RUN, I NEED TO GO TO THE BANK AND GO EKG MANAGER MY CELL PHONE, ALSO I CANT LEAVE MY CAR HERE.'' CHARGE NURSE EFRAIN INFORMED, DESKTOP ARCHITECT CUAUHTEMOC WENT IN TO TALK TO PT. PATIENT REQUESTING HOME HEALTH FOR WOUND CARE.
[2022-11-18] MEDS ORDERED: ERTA1VIA2 IJ (18:06)
[2022-11-18 18:24] LABS: BASOPHILS # (AUTO) 0.1 K/uL (0.00-0.22); BASOPHILS % (AUTO) 2.2 % (0.0-2.0); EOSINOPHILS # (AUTO) 0.3 K/uL (0-0.4); HEMATOCRIT 24.8 % (36-52); HEMOGLOBIN 7.6 g/dL (12.0-18.0); LYMPHOCYTES # (AUTO) 1.3 K/uL (2.0-11.5); MEAN CORPUSCULAR HEMOGLOBIN 21 pg (27-31); MEAN CORPUSCULAR HGB CONC 31 g/dL (33-37); MEAN CORPUSCULAR VOLUME 67.8 fL (80-94); MONOCYTES # (AUTO) 0.4 K/uL (0.8-1.0); MONOCYTES % (AUTO) 7.4 % (1.7-9.3); NEUTROPHILS # (AUTO) 3.1 K/uL (1.8-7.7); NEUTROPHILS % (AUTO) 59.4 % (42.2-75.2); PLATELET COUNT (AUTO) 506 K/uL (140-450); RED BLOOD CELL COUNT(AUTO) 3.65 MIL/uL (4.20-6.10); RED CELL DISTRIBUTION WIDTH 19.6 % (11.6-13.7); WHITE BLOOD COUNT (AUTO) 5.2 K/uL (4.8-10.8)
--- NOTE | 2022-11-18 19:05 | NUR ---
ENDORSED PT TO CLOTH PACKER NURSE FOR CONTINUITY OF CARE. PT IS STABLE.
--- NOTE | 2022-11-18 19:06 | NUR ---
RECEIVED BEDSIDE REPORT FROM LEANDRA HOLLOWAY FOR CONTINUITY OF CARE. PATIENT IS STABLE IN BED AND APPEARS WITHDRAWN. A&OX4. DENIES PAIN. ON ROOM AIR WITH NO APPARENT S/SX OF ACUTE DISTRESS. RESPIRATIONS EVEN AND UNLABORED. PATIENT HAS RUDY PICC LINE PATENT/INTACT WITH NS INFUSING AT 60 ML/HR. MORNING SHIFT ENDORSED POSSIBLE D/C SOON TRANSPORTATION ISSUE IS RESOLVED. PATIENT IS BEDREST AND INCONTINENT. OSTOMY BAG AND SUPRAPUBIC CATHETER VISIBLE WITH OUTPUT PRESENT. POC AND WHITE COMMUNICATION BOARD UPDATED. ALL SAFETY MEASURES IN PLACE. BED IN LOW/LOCKED POSITION. CALL LIGHT WITHIN REACH. WILL CONTINUE TO MONITOR.
--- NOTE | 2022-11-18 19:06 | NUR ---
RECEIVED REPORT FROM DAY SHIFT NURSE FOR CONTINUITY OF CARE. PATIENT IS AWAKE, ALERT AND ORIENTED X4. PATIENT IS PARAPLEGIC AND BEDBOUND. CURRENTLY STABLE ON ROOM AIR. REPORTS A PAIN LEVEL OF 5/10 IN HEAD. PATIENT HAS RIGHT UPPER ARM PICC LINE IN PLACE, INTACT AND PATENT. SKIN IS WARM/DRY/ELASTIC. LARGE OPEN SACRAL WOUND PRESENT. VITAL SIGNS TAKEN, ALL EXPECTED RANGE FOR PATIENT. CALL LIGHT PLACED WITHIN REACH, SAFETY MEASURES IN PLACE, WILL MAKE FREQUENT ROUNDS THROUGHOUT SHIFT.
[2022-11-18 20:00] VITALS: PULSE 106; RESP 18; TEMP 97.1; O2SAT 93
--- NOTE | 2022-11-18 20:00 | NUR ---
Patient's Plan of Care was discussed and reviewed with LEANDRA DURON
--- NOTE | 2022-11-18 20:16 | NUR ---
SCHEDULED MEDICATIONS ADMINISTERED. PT REPORTING A HEADACHE WITH A PAIN LEVEL OF 5/10. NORCO 5/325 PO PRN WAS ADMINISTERED, PT TOLERATED WELL. WILL REASSESS PAIN LEVEL IN ONE HOUR.
--- NOTE | 2022-11-18 21:19 | NUR ---
REASSESSED PATIENTS PAIN LEVEL. PATIENT STATES NO LONGER HAVING A HEADACHE. PAIN MANAGEMENT SUCCESSFUL, WILL CONTINUE MONITORING THE PATIENT.
--- NOTE | 2022-11-18 22:40 | NUR ---
MAKING ROUNDS. PT SLEEPING AT THIS TIME. NO VISIBLE SIGNS/SYMPTOMS OF ACUTE DISTRESS NOTED. WILL CONTINUE TO MONITOR THE PT.
--- NOTE | 2022-11-18 23:19 | NUR ---
RECEIVED PHONE CALL FROM [facility]. PER EMILEE GRIER RN, INQUIRING IF PT IS STILL COMING IN TODAY. ENDORSED TO RN THAT THERE WAS AN ISSUE WITH TRANSPORTATION BECAUSE THE PATIENT DOESN'T WANT TO LEAVE HIS PERSONAL VEHICLE PARKED IN THE PARKING LOT OF THE ED. PER RN, PATIENT WILL NOT LOSE PLACEMENT IF THERE'S A DELAY WITH TRANSPORTATION. WILL ENDORSE TO [facility] TO COORDINATE WITH [facility] REGARDING PT'S TRANSPORTATION TO THEIR FACILITY.
[2022-11-19] MEDS ORDERED: PIPERACILLIN/TAZOBACTAM 3.375 GM VIAL IV ONE ×2 (00:15→05:40)
[2022-11-19] MEDS: PIPERACILLIN/TAZOBACTAM 3.375 GM in DEXTROSE 5% 50 ML IV SCH ×3 (00:27→12:00)
--- NOTE | 2022-11-19 02:41 | NUR ---
PATIENT REFUSED WOUND DRESSING CHANGE AT THIS TIME. PATIENT STATED, "MAYBE LATER". WILL ATTEMPT TO PERFORM WOUND CARE DRESSING CHANGE AT LATER TIME. PATIENT SHOWS NO SIGNS OF ACUTE DISTRESS, WILL CONTINUE MONITORING.
--- NOTE | 2022-11-19 04:29 | NUR ---
PATIENT REFUSED 0400 VITAL SIGNS. EXPLAINED TO THE PATIENT THE RISKS OF REFUSING VITAL SIGNS. PATIENT STILL REFUSED STATING "I JUST WANT TO SLEEP". WILL CONTINUE MONITORING THE PATIENT.
--- NOTE | 2022-11-19 06:23 | NUR ---
PATIENT STILL REFUSING WOUND CARE AND DRESSING CHANGE. WILL ENDORSE TO DAY SHIFT NURSE.
[2022-11-19 06:58] LABS: ANION GAP 7.6 (8-16); CARBON DIOXIDE 32.7 mmol/L (21-32); CREATININE 0.4 mg/dL (0.6-1.3); POTASSIUM 4.3 mmol/L (3.5-5.1)
[2022-11-19 07:03] LABS: BASOPHILS # (AUTO) 0.1 K/uL (0.00-0.22); BASOPHILS % (AUTO) 2.1 % (0.0-2.0); EOSINOPHILS # (AUTO) 0.4 K/uL (0-0.4); EOSINOPHILS % (AUTO) 6.2 % (0.0-4.0); HEMATOCRIT 25.4 % (36-52); HEMOGLOBIN 7.8 g/dL (12.0-18.0); LYMPHOCYTES # (AUTO) 1.7 K/uL (2.0-11.5); LYMPHOCYTES % (AUTO) 29.6 % (20.5-51.1); MEAN CORPUSCULAR HEMOGLOBIN 21 pg (27-31); MEAN CORPUSCULAR HGB CONC 31 g/dL (33-37); MEAN CORPUSCULAR VOLUME 68.4 fL (80-94); MONOCYTES # (AUTO) 0.5 K/uL (0.8-1.0); MONOCYTES % (AUTO) 8.8 % (1.7-9.3); NEUTROPHILS # (AUTO) 3.1 K/uL (1.8-7.7); NEUTROPHILS % (AUTO) 53.3 % (42.2-75.2); PLATELET COUNT (AUTO) 466 K/uL (140-450); RED BLOOD CELL COUNT(AUTO) 3.72 MIL/uL (4.20-6.10); WHITE BLOOD COUNT (AUTO) 5.7 K/uL (4.8-10.8)
--- NOTE | 2022-11-19 07:08 | NUR ---
RECEIVED REPORT FROM ASSOCIATE RELATIONS SPECIALIST NURSE FOR CONTINUITY OF CARE. PT IS ASLEEP, AWAKEN BY NAME. REFUSED MORNING VS. NO SIGN OF DISTRESS, CALL LIGHT WITHIN REACH.
--- NOTE | 2022-11-19 07:10 | NUR ---
ENDORSED PATIENT TO JERMAN SHETTY FOR CONTINUITY OF CARE. PATIENT IS STABLE.
[2022-11-19 07:15] LABS: MAGNESIUM 2.6 mg/dL (1.8-2.4); PHOSPHORUS 3.9 mg/dL (2.5-4.9)
[2022-11-19 08:00] VITALS: RESP 18; O2SAT 93
[2022-11-19] MEDS: FERROUS SULFATE 325 MG TABEC PO SCH (09:00)
[2022-11-19] MEDS: QUEtiapine FUMARATE 100 MG TAB PO SCH (09:00)
--- NOTE | 2022-11-19 09:00 | NUR ---
PT REFUSED VS AND SOME MEDS.
[2022-11-19] MEDS: BACLOFEN 10 MG TAB PO SCH ×2 (09:35→15:19)
[2022-11-19] MEDS: HYDROmorphone 1 MG/ML AMP IVP PRN ×2 (09:56→15:24)
--- NOTE | 2022-11-19 12:00 | NUR ---
PT IS STILL REFUSING TO BE MOVED TO [facility] VIA AN AMBULANCE AND WANTS TO DRIVE HIS OWN CAR. DIRECTOR OF RESTAURANTS AND SLUBBER OPERATOR TALKED TO THE PT. FOR HOME HEALTH ARRANGEMENTS.
[2022-11-19] MEDS: ALGINATE DRESSING MC SCH (13:00)
[2022-11-19] MEDS: Z-GUARD PASTE TP SCH (13:00)
[2022-11-19] MEDS: GAUZE TP SCH (13:00)
[2022-11-19] MEDS ORDERED: ALTEPLASE 2 MG VIAL MC SCH (13:10)
[2022-11-19] MEDS: NACL 0.9% 1,000 ML IV SCH (14:40)
--- NOTE | 2022-11-19 15:16 | NUR ---
ONE LUMEN ON THE PICC LINE WAS CLOGGED, PUSHED CATHFLO.
--- NOTE | 2022-11-19 15:56 | NUR ---
PICC LINE IS WORKING NOW. FLUSHES EASILY.
--- NOTE | 2022-11-19 17:50 | NUR ---
PT LEFT THE UNIT VIA WHEELCHAIR ACCOMPANIED BY , RN JONATHON AND KIMMIE. BROUGHT HIM TO THE FROM OF ER HIS CAR WAS PARKED THERE. DISCHARGE EDUCATION GIVEN. ID BAND REMOVED, PICC LINE KEPT FOR HOME HEALTH ABX. PT IS STABLE.
== END 2022-11-19 17:50 | disposition home health service (06) | DRG 871 ==
LOC: MED 21:50 → MTU 11-16 03:26
PROVIDERS: ADMIT Student in an Organized Health Care Education/Training Program; ATTEND Student in an Organized Health Care Education/Training Program
PROC: 05HY33Z Insertion of Infusion Device into Upper Vein, Percutaneous Approach (ICD-10-PCS; principal; 2022-11-17)
DX: A41.9 Sepsis, unspecified organism (principal); E43 Unspecified severe protein-calorie malnutrition; S14.106A Unspecified injury at C6 level of cervical spinal cord, initial encounter; N39.0 Urinary tract infection, site not specified; G82.20 Paraplegia, unspecified; Z68.1 Body mass index [BMI] 19.9 or less, adult; E86.0 Dehydration; E11.9 Type 2 diabetes mellitus without complications; D64.9 Anemia, unspecified; D75.839 Thrombocytosis, unspecified; L89.899 Pressure ulcer of other site, unspecified stage; Z79.899 Other long term (current) drug therapy; Z87.891 Personal history of nicotine dependence; Y93.89 Activity, other specified; Y99.8 Other external cause status; V89.2XXA Person injured in unspecified motor-vehicle accident, traffic, initial encounter; Y92.410 Unspecified street and highway as the place of occurrence of the external cause; B96.5 Pseudomonas (aeruginosa) (mallei) (pseudomallei) as the cause of diseases classified elsewhere
CPT/HCPCS: 36415; 71045; 80048; 80053; 81001; 83605; 83735; 84100; 85025; 87040; 87081; 87086; 93005; J0696; J1170; J1335; J1644; J1885; J2185; J2270; J2543; J2997; J3475; J7060; Q0092

== ENCOUNTER 2022-12-30 17:09 | Inpatient (IN) | payer OTHER ==
[~2022-12-30] VITALS: Ht 177.8 cm; Wt 67.6 kg
[~2022-12-30 17:09] MED LIST changes: +ERTA1VIA2 IJ; +SULF-954 PO
[2022-12-30 17:17] VITALS: BP 131/84; PULSE 116; RESP 17; TEMP 97.4; O2SAT 95
[2022-12-30] MEDS ORDERED: NACL 0.9% 2,000 ML IV ONE (17:35)
[2022-12-30 18:18] LABS: BASOPHILS # (AUTO) 0.1 K/uL (0.00-0.22); BASOPHILS % (AUTO) 0.7 % (0.0-2.0); EOSINOPHILS % (AUTO) 0.2 % (0.0-4.0); HEMATOCRIT 31.5 % (36-52); HEMOGLOBIN 9.6 g/dL (12.0-18.0); LYMPHOCYTES # (AUTO) 0.9 K/uL (2.0-11.5); LYMPHOCYTES % (AUTO) 5.2 % (20.5-51.1); MEAN CORPUSCULAR HEMOGLOBIN 21 pg (27-31); MEAN CORPUSCULAR HGB CONC 31 g/dL (33-37); MEAN CORPUSCULAR VOLUME 67.7 fL (80-94); MONOCYTES # (AUTO) 1.6 K/uL (0.8-1.0); MONOCYTES % (AUTO) 9.9 % (1.7-9.3); NEUTROPHILS # (AUTO) 13.8 K/uL (1.8-7.7); PLATELET COUNT (AUTO) 461 K/uL (140-450); RED BLOOD CELL COUNT(AUTO) 4.65 MIL/uL (4.20-6.10); RED CELL DISTRIBUTION WIDTH 21.3 % (11.6-13.7); WHITE BLOOD COUNT (AUTO) 16.5 K/uL (4.8-10.8)
[2022-12-30] MEDS ORDERED: KETOROLAC 30 MG/ML VIAL IVP ONE (18:20)
[2022-12-30] MEDS ORDERED: MORPHINE SULFATE 4 MG/ML SYR IVP ONE (18:30)
[2022-12-30] MEDS ORDERED: cefTRIAXone 1,000 MG VIAL ONE (18:32)
[2022-12-30 19:10] LABS: LACTIC ACID 1.1 mmol/L (0.4-2.0)
[2022-12-30 19:20] LABS: APPEARANCE,URINE CLEAR (CLEAR); BILIRUBIN,URINE NEGATIVE (NEGATIVE); BLOOD, URINE 2+ (NEGATIVE); COLOR,URINE YELLOW (YELLOW); LEUKOCYTE ESTERASE ,URINE 2+ (NEGATIVE); NITRITE, URINE NEGATIVE (NEGATIVE); PROTEIN,URINE 2+ (NEGATIVE); UGLUCOSE NEGATIVE (NEGATIVE); UROBILINOGEN,URINE 0.2 EU/dL (0.2 - 1)
[2022-12-30 19:20] LABS: ALANINE AMINOTRANSFERASE 20 U/L (12-78); ALBUMIN 2.9 g/dL (3.4-5.0); ALKALINE PHOSPHATASE 69 U/L (50-136); ANION GAP 10.8 (8-16); ASPARTATE AMINOTRANSFERASE 24 U/L (15-37); CALCIUM 8.9 mg/dL (8.5-10.1); CARBON DIOXIDE 28.8 mmol/L (21-32); CHLORIDE 98 mmol/L (98-107); CREATINE KINASE, TOTAL 117 U/L (39-308); CREATININE 0.6 mg/dL (0.6-1.3); GFR ARICAN-AMERICAN 196 mL/min (>90); GFR NON ARICAN-AMERICAN 162 mL/min (>90); GLUCOSE 117 mg/dL (74-106); POTASSIUM 3.6 mmol/L (3.5-5.1); SODIUM SERUM 134 mmol/L (136-145); TOTAL BILIRUBIN 0.5 mg/dL (0.0-1.0); UREA NITROGEN, BLOOD 24 mg/dL (7-18)
[2022-12-30 19:51] LABS: BACTERIA,URINE 2+ /HPF (None Seen); MUCUS,URINE None Seen /LPF (None Seen); RBC,URINE 20-50 /HPF (0-5); SQUAMOUS EPITHELIAL CELL,UR 4-10 (MOD) /LPF (0-3 (FEW)); TRICHOMONAS,URINE None Seen /HPF (None Seen); WBC,URINE 20-60 /HPF (0-5); YEAST,URINE None Seen /HPF (None Seen)
[2022-12-30] MEDS ORDERED: ACETAMINOPHEN 325 MG TAB PO PRN (20:20)
[2022-12-30] MEDS ORDERED: LORazepam 2 MG/ML VIAL IVP PRN (20:20)
[2022-12-30] MEDS ORDERED: ONDANSETRON 4 MG/2 ML VIAL IVP PRN (20:20)
[2022-12-30] MEDS ORDERED: HYDROcodone/APAP 5/325 MG 1 TAB TAB PO PRN (20:20)
[2022-12-30 21:50] VITALS: BP 118/60; PULSE 74; RESP 18; TEMP 98.3; O2SAT 96
[2022-12-30] MEDS ORDERED: BACLOFEN 10 MG TAB ONE (23:17)
[2022-12-30] MEDS: NACL 0.9% 1,000 ML IV SCH (23:20)
[2022-12-30] MEDS: MORPHINE SULFATE 2 MG/ML SYR IVP PRN (23:28)
[2022-12-31 04:15] VITALS: BP 121/70; PULSE 90; RESP 18; TEMP 98.8; O2SAT 95
[2022-12-31] MEDS: MORPHINE SULFATE 2 MG/ML SYR IVP PRN ×2 (04:18→09:11)
[2022-12-31] MEDS: NACL 0.9% 1,000 ML IV SCH ×3 (06:20→21:25)
[2022-12-31] MEDS ORDERED: BACLOFEN 10 MG TAB PO SCH (09:00)
[2022-12-31] MEDS: BACLOFEN 10 MG TAB PO SCH ×3 (09:00→17:38)
[2022-12-31] MEDS: QUEtiapine FUMARATE 100 MG TAB PO SCH ×3 (09:00→21:25)
[2022-12-31] MEDS ORDERED: HYDROmorphone 1 MG/ML AMP IVP PRN (12:30)
[2022-12-31] MEDS ORDERED: ALGINATE DRESSING MC PRN (14:30)
[2022-12-31 16:00] VITALS: BP 119/62; PULSE 100; RESP 24; TEMP 98.7; O2SAT 100
[2022-12-31] MEDS: MORPHINE SULFATE 4 MG/ML SYR IVP PRN (17:37)
[2022-12-31] MEDS ORDERED: VANCOMYCIN PER PHARMACY MC PRN (19:30)
[2022-12-31] MEDS: ERTAPENEM SODIUM 1,000 MG in NACL 0.9% 50 ML IV SCH (19:35)
[2022-12-31 20:00] VITALS: BP 125/85; PULSE 101; RESP 20; TEMP 99.2; O2SAT 96
[2022-12-31] MEDS: HYDROmorphone PFS 2 MG/ML SYR IVP PRN (21:34)
[2022-12-31] MEDS ORDERED: VANCOMYCIN 1,000 MG VIAL ONE (22:35)
[2022-12-31] MEDS ORDERED: PIGGYBACK IV ONE (23:00)
[2022-12-31] MEDS ORDERED: VANCOMYCIN IV ONE (23:00)
[2022-12-31] MEDS ORDERED: DEXT IV ONE (23:00)
[2023-01-01] MEDS ORDERED: PIPERACILLIN/TAZOBACTAM 3.375 GM in DEXTROSE 5% 50 ML IV SCH ×2
[2023-01-01] MEDS: Z-GUARD PASTE TP SCH ×2 (01:00→13:00)
[2023-01-01 08:00] VITALS: TEMP 97.8
[2023-01-01] MEDS: HYDROmorphone PFS 2 MG/ML SYR IVP PRN ×2 (08:05→17:02)
[2023-01-01] MEDS: QUEtiapine FUMARATE 100 MG TAB PO SCH ×2 (09:00→20:12)
[2023-01-01] MEDS: BACLOFEN 10 MG TAB PO SCH ×3 (09:09→18:52)
[2023-01-01 11:11] VITALS: PULSE 99; RESP 19; O2SAT 99
[2023-01-01 11:12] LABS: BASOPHILS # (AUTO) 0.1 K/uL (0.00-0.22); BASOPHILS % (AUTO) 1.7 % (0.0-2.0); EOSINOPHILS # (AUTO) 0.3 K/uL (0-0.4); EOSINOPHILS % (AUTO) 7.8 % (0.0-4.0); HEMATOCRIT 25.3 % (36-52); HEMOGLOBIN 7.9 g/dL (12.0-18.0); LYMPHOCYTES # (AUTO) 1.6 K/uL (2.0-11.5); LYMPHOCYTES % (AUTO) 35.2 % (20.5-51.1); MEAN CORPUSCULAR HEMOGLOBIN 21 pg (27-31); MEAN CORPUSCULAR HGB CONC 31 g/dL (33-37); MEAN CORPUSCULAR VOLUME 68.9 fL (80-94); MONOCYTES # (AUTO) 0.4 K/uL (0.8-1.0); MONOCYTES % (AUTO) 8.5 % (1.7-9.3); NEUTROPHILS # (AUTO) 2.1 K/uL (1.8-7.7); NEUTROPHILS % (AUTO) 46.8 % (42.2-75.2); PLATELET COUNT (AUTO) 248 K/uL (140-450); RED BLOOD CELL COUNT(AUTO) 3.68 MIL/uL (4.20-6.10); RED CELL DISTRIBUTION WIDTH 21.2 % (11.6-13.7); WHITE BLOOD COUNT (AUTO) 4.5 K/uL (4.8-10.8)
[2023-01-01] MEDS: VANCOMYCIN 1,000 MG in NACL 0.9% 250 ML IV SCH ×2 (11:25→17:01)
[2023-01-01 11:31] LABS: ANION GAP 7.9 (8-16); CALCIUM 8.1 mg/dL (8.5-10.1); CARBON DIOXIDE 31.6 mmol/L (21-32); CREATININE 0.5 mg/dL (0.6-1.3); POTASSIUM 3.5 mmol/L (3.5-5.1)
[2023-01-01] MEDS: NACL 0.9% 1,000 ML IV SCH ×2 (12:23→22:20)
[2023-01-01] MEDS: ALGINATE DRESSING MC SCH (13:00)
[2023-01-01 16:00] VITALS: BP 124/61; PULSE 108; RESP 18; TEMP 97.8; O2SAT 98
[2023-01-01 20:00] VITALS: BP 151/74; RESP 18; RESP 20; TEMP 98.4
[2023-01-01] MEDS: ERTAPENEM SODIUM 1,000 MG in NACL 0.9% 50 ML IV SCH (20:07)
[2023-01-02] MEDS: Z-GUARD PASTE TP SCH ×2 (01:00→13:00)
[2023-01-02] MEDS: VANCOMYCIN 1,000 MG in NACL 0.9% 250 ML IV SCH ×3 (01:27→16:21)
[2023-01-02] MEDS: HYDROmorphone PFS 2 MG/ML SYR IVP PRN ×2 (02:46→15:21)
[2023-01-02 04:00] VITALS: BP 146/84; PULSE 76; RESP 18; TEMP 97.5; O2SAT 97
[2023-01-02 08:00] VITALS: BP 127/75; PULSE 81; RESP 18; TEMP 97.7; O2SAT 100
[2023-01-02] MEDS: NACL 0.9% 1,000 ML IV SCH ×2 (09:09→18:20)
[2023-01-02] MEDS: BACLOFEN 10 MG TAB PO SCH ×3 (09:12→18:18)
[2023-01-02] MEDS: QUEtiapine FUMARATE 100 MG TAB PO SCH ×2 (09:12→21:58)
[2023-01-02] MEDS: MORPHINE SULFATE 4 MG/ML SYR IVP PRN ×2 (09:12→22:08)
[2023-01-02 09:18] VITALS: RESP 18; O2SAT 100
[2023-01-02 09:24] LABS: ANION GAP 8.1 (8-16); CALCIUM 8.3 mg/dL (8.5-10.1); CARBON DIOXIDE 33.8 mmol/L (21-32); CREATININE 0.5 mg/dL (0.6-1.3); POTASSIUM 3.9 mmol/L (3.5-5.1)
[2023-01-02 09:28] LABS: BASOPHILS # (AUTO) 0.1 K/uL (0.00-0.22); BASOPHILS % (AUTO) 1.1 % (0.0-2.0); EOSINOPHILS # (AUTO) 0.4 K/uL (0-0.4); EOSINOPHILS % (AUTO) 6.2 % (0.0-4.0); HEMATOCRIT 28.2 % (36-52); HEMOGLOBIN 8.6 g/dL (12.0-18.0); LYMPHOCYTES # (AUTO) 1.5 K/uL (2.0-11.5); LYMPHOCYTES % (AUTO) 22.8 % (20.5-51.1); MEAN CORPUSCULAR HEMOGLOBIN 21 pg (27-31); MEAN CORPUSCULAR HGB CONC 31 g/dL (33-37); MEAN CORPUSCULAR VOLUME 68.3 fL (80-94); MONOCYTES # (AUTO) 0.4 K/uL (0.8-1.0); NEUTROPHILS # (AUTO) 4.1 K/uL (1.8-7.7); NEUTROPHILS % (AUTO) 63.9 % (42.2-75.2); PLATELET COUNT (AUTO) 341 K/uL (140-450); RED BLOOD CELL COUNT(AUTO) 4.12 MIL/uL (4.20-6.10); WHITE BLOOD COUNT (AUTO) 6.4 K/uL (4.8-10.8)
[2023-01-02] MEDS: ALGINATE DRESSING MC SCH (13:00)
[2023-01-02 16:00] VITALS: BP 116/71; PULSE 107; RESP 18; TEMP 96.8; O2SAT 100
[2023-01-02 20:00] VITALS: BP 128/68; PULSE 100; RESP 18; TEMP 97.7; O2SAT 97
[2023-01-02] MEDS: ERTAPENEM SODIUM 1,000 MG in NACL 0.9% 50 ML IV SCH (20:23)
[2023-01-03] MEDS: HYDROmorphone PFS 2 MG/ML SYR IVP PRN ×3 (00:24→17:16)
[2023-01-03] MEDS: VANCOMYCIN 1,000 MG in NACL 0.9% 250 ML IV SCH ×3 (00:30→17:08)
[2023-01-03] MEDS: NACL 0.9% 1,000 ML IV SCH ×3 (00:36→23:23)
[2023-01-03] MEDS: Z-GUARD PASTE TP SCH ×2 (01:25→13:36)
[2023-01-03 04:00] VITALS: BP 131/65; PULSE 105; RESP 18; TEMP 98.5; O2SAT 97
[2023-01-03] MEDS: MORPHINE SULFATE 4 MG/ML SYR IVP PRN ×2 (06:03→23:08)
[2023-01-03 08:00] VITALS: BP 130/88; PULSE 102; RESP 18; TEMP 98.2; O2SAT 98
[2023-01-03] MEDS: BACLOFEN 10 MG TAB PO SCH ×3 (09:28→17:08)
[2023-01-03] MEDS: QUEtiapine FUMARATE 100 MG TAB PO SCH ×2 (09:28→22:44)
[2023-01-03] MEDS: ALGINATE DRESSING MC SCH (13:36)
[2023-01-03 16:00] VITALS: BP 135/82; PULSE 99; RESP 18; TEMP 98.2; O2SAT 97
[2023-01-03 20:00] VITALS: BP 124/80; PULSE 83; PULSE 99; RESP 18; TEMP 98.9; TEMP 99; O2SAT 95
[2023-01-03] MEDS: ERTAPENEM SODIUM 1,000 MG in NACL 0.9% 50 ML IV SCH (22:43)
[2023-01-04] MEDS: Z-GUARD PASTE TP SCH ×2 (01:00→13:31)
[2023-01-04] MEDS: VANCOMYCIN 1,000 MG in NACL 0.9% 250 ML IV SCH ×3 (05:55→17:00)
[2023-01-04 08:00] VITALS: BP 154/99; PULSE 72; RESP 18; TEMP 96.9; O2SAT 100
[2023-01-04] MEDS: HYDROmorphone PFS 2 MG/ML SYR IVP PRN ×2 (08:57→22:22)
[2023-01-04] MEDS: BACLOFEN 10 MG TAB PO SCH ×3 (08:58→17:00)
[2023-01-04] MEDS: QUEtiapine FUMARATE 100 MG TAB PO SCH ×2 (08:58→21:00)
[2023-01-04] MEDS: NACL 0.9% 1,000 ML IV SCH ×2 (11:01→20:20)
[2023-01-04] MEDS: ALGINATE DRESSING MC SCH (13:31)
[2023-01-04] MEDS: MORPHINE SULFATE 4 MG/ML SYR IVP PRN (13:34)
[2023-01-04 16:00] VITALS: BP 146/85; PULSE 90; RESP 18; TEMP 97.2; O2SAT 97
[2023-01-04] MEDS: ERTAPENEM SODIUM 1,000 MG in NACL 0.9% 50 ML IV SCH (19:35)
[2023-01-04 20:00] VITALS: BP 141/87; PULSE 90; PULSE 98; RESP 18; TEMP 97.7; O2SAT 95
[2023-01-05] MEDS: VANCOMYCIN 1,000 MG in NACL 0.9% 250 ML IV SCH ×2 (01:35→08:55)
[2023-01-05] MEDS: Z-GUARD PASTE TP SCH (01:40)
[2023-01-05 04:00] VITALS: BP 148/83; PULSE 90; RESP 18; TEMP 97.8; O2SAT 94
[2023-01-05] MEDS: HYDROmorphone PFS 2 MG/ML SYR IVP PRN (06:51)
[2023-01-05 08:00] VITALS: BP 124/71; PULSE 85; RESP 18; TEMP 97.2; O2SAT 92
[2023-01-05] MEDS: NACL 0.9% 1,000 ML IV SCH (08:20)
[2023-01-05] MEDS: BACLOFEN 10 MG TAB PO SCH (08:55)
[2023-01-05] MEDS: QUEtiapine FUMARATE 100 MG TAB PO SCH (08:56)
== END 2023-01-05 12:12 | disposition home health service (06) | DRG 871 ==
LOC: MED 17:09 → MTU 20:25
PROVIDERS: ADMIT Student in an Organized Health Care Education/Training Program; ATTEND Student in an Organized Health Care Education/Training Program
PROC: 02HV33Z Insertion of Infusion Device into Superior Vena Cava, Percutaneous Approach (ICD-10-PCS; principal; 2022-12-30)
PROC: B548ZZA Ultrasonography of Superior Vena Cava, Guidance (ICD-10-PCS; 2022-12-30)
DX: A41.9 Sepsis, unspecified organism (principal); G82.50 Quadriplegia, unspecified; L89.154 Pressure ulcer of sacral region, stage 4; L89.324 Pressure ulcer of left buttock, stage 4; E44.0 Moderate protein-calorie malnutrition; E87.1 Hypo-osmolality and hyponatremia; N39.0 Urinary tract infection, site not specified; M46.28 Osteomyelitis of vertebra, sacral and sacrococcygeal region; L03.312 Cellulitis of back [any part except buttock and flank]; D64.9 Anemia, unspecified; E11.69 Type 2 diabetes mellitus with other specified complication; Z68.21 Body mass index [BMI] 21.0-21.9, adult; Z90.49 Acquired absence of other specified parts of digestive tract; Z93.3 Colostomy status
CPT/HCPCS: 36415; 71045; 80048; 80053; 80202; 81001; 82550; 83605; 84484; 85025; 87040; 87070; 87075; 87081; 87086; 87205; 96361; 96365; 96375; 99291; J0696; J1170; J1335; J1644; J2270; J3370; J7030; J7060; Q0092

== ENCOUNTER 2023-01-19 06:30 | Inpatient (IN) | payer OTHER ==
[~2023-01-19] VITALS: Ht 188 cm; Wt 65.8 kg
[2023-01-19 07:00] VITALS: BP 90/39; PULSE 131; RESP 21; TEMP 98.7; O2SAT 97
[2023-01-19] MEDS ORDERED: NACL 0.9% 1,000 ML IV ONE (07:25)
[2023-01-19] MEDS ORDERED: fentaNYL citrate 0.05 MG/ML VIAL IVP ONE (07:40)
[2023-01-19 07:47] LABS: BLOOD GAS HCO3 25.5 mmol/L (22-26); BLOOD GAS PCO2 29.9 mmHg (35-45); BLOOD GAS PH 7.548 (7.35-7.45); BLOOD GAS PO2 134.7 mmHg (75-100)
[2023-01-19 07:48] LABS: BLOOD GAS BASE EXCESS 3.4 mmol/L (-2.0-2.0)
[2023-01-19 09:04] LABS: BASOPHILS # (AUTO) 0.1 K/uL (0.00-0.22); BASOPHILS % (AUTO) 0.6 % (0.0-2.0); EOSINOPHILS # (AUTO) 0.2 K/uL (0-0.4); EOSINOPHILS % (AUTO) 1.4 % (0.0-4.0); HEMATOCRIT 29.2 % (36-52); LYMPHOCYTES # (AUTO) 1.7 K/uL (2.0-11.5); LYMPHOCYTES % (AUTO) 13.7 % (20.5-51.1); MEAN CORPUSCULAR HEMOGLOBIN 20 pg (27-31); MEAN CORPUSCULAR HGB CONC 31 g/dL (33-37); MEAN CORPUSCULAR VOLUME 66.5 fL (80-94); MONOCYTES # (AUTO) 1.2 K/uL (0.8-1.0); MONOCYTES % (AUTO) 9.6 % (1.7-9.3); NEUTROPHILS # (AUTO) 9.1 K/uL (1.8-7.7); NEUTROPHILS % (AUTO) 74.7 % (42.2-75.2); PLATELET COUNT (AUTO) 566 K/uL (140-450); RED BLOOD CELL COUNT(AUTO) 4.39 MIL/uL (4.20-6.10); RED CELL DISTRIBUTION WIDTH 20.4 % (11.6-13.7); WHITE BLOOD COUNT (AUTO) 12.2 K/uL (4.8-10.8)
[2023-01-19 09:21] LABS: INR 1.08 (0.8-1.2); PARTIAL THROMBOPLASTIN TIME 32.5 secs (22-35.6); PROTHROMBIN TIME 11.3 secs (10.8-13.4)
[2023-01-19 09:25] LABS: ALBUMIN 2.3 g/dL (3.4-5.0); ANION GAP 9.4 (8-16); CALCIUM 8.6 mg/dL (8.5-10.1); CARBON DIOXIDE 29.6 mmol/L (21-32); CREATININE 0.7 mg/dL (0.6-1.3); TOTAL BILIRUBIN 0.2 mg/dL (0.0-1.0)
[2023-01-19 09:28] LABS: CREATINE KINASE, TOTAL 78 U/L (39-308)
[2023-01-19 09:29] LABS: LACTIC ACID 0.5 mmol/L (0.4-2.0)
[2023-01-19] MEDS ORDERED: PIPERACILLIN/TAZOBACTAM 3.375 GM in DEXTROSE 5% 50 ML IV ONE (09:45)
[2023-01-19] MEDS ORDERED: PIPERACILLIN/TAZOBACTAM 3.375 GM VIAL IV ONE (10:31)
[2023-01-19] MEDS ORDERED: diphenhydrAMINE 50 MG/ML VIAL IVP ONE (11:20)
[2023-01-19] MEDS ORDERED: VANCOMYCIN PER PHARMACY MC PRN (11:45)
[2023-01-19 12:15] VITALS: RESP 20; O2SAT 99
[2023-01-19] MEDS ORDERED: ACETAMINOPHEN 325 MG TAB PO PRN (12:25)
[2023-01-19] MEDS ORDERED: HYDROcodone/APAP 5/325 MG 1 TAB TAB PO PRN (12:25)
[2023-01-19] MEDS: VANCOMYCIN 1,000 MG in DEXTROSE 5% 250 ML IV SCH ×2 (13:56→20:50)
[2023-01-19 16:00] VITALS: BP 145/91; PULSE 78; PULSE 84; RESP 17; TEMP 97.5; O2SAT 97
[2023-01-19] MEDS: MORPHINE SULFATE 4 MG/ML SYR IVP PRN ×2 (18:07→23:38)
[2023-01-19 20:00] VITALS: BP 157/105; PULSE 114; PULSE 83; RESP 18; TEMP 97.4; O2SAT 97; O2SAT 99
[2023-01-19] MEDS: MEROPENEM 1,000 MG in NACL 0.9% 50 ML IV SCH (20:05)
[2023-01-20] VITALS: BP 153/110; PULSE 87; PULSE 95; RESP 18; TEMP 97.1; O2SAT 97
[2023-01-20 04:00] VITALS: BP 152/110; PULSE 114; PULSE 81; RESP 18; TEMP 97.3; O2SAT 96
[2023-01-20] MEDS: MORPHINE SULFATE 4 MG/ML SYR IVP PRN ×3 (04:03→23:00)
[2023-01-20] MEDS: VANCOMYCIN 1,000 MG in DEXTROSE 5% 250 ML IV SCH ×3 (04:19→21:44)
[2023-01-20 08:00] VITALS: PULSE 71
[2023-01-20 08:15] VITALS: RESP 20; O2SAT 100
[2023-01-20 08:16] VITALS: PULSE 88; RESP 20; O2SAT 100
[2023-01-20] MEDS ORDERED: ENOXAPARIN 40 MG/0.4 ML SYR SUBQ SCH (09:00)
[2023-01-20] MEDS ORDERED: ENOXAPARIN 30 MG/0.3 ML SYR SUBQ SCH (09:00)
[2023-01-20] MEDS: MEROPENEM 1,000 MG in NACL 0.9% 50 ML IV SCH ×2 (09:16→20:21)
[2023-01-20] MEDS: BACLOFEN 10 MG TAB PO SCH ×2 (12:08→18:07)
[2023-01-20 12:27] LABS: BASOPHILS # (AUTO) 0.1 K/uL (0.00-0.22); BASOPHILS % (AUTO) 1.8 % (0.0-2.0); EOSINOPHILS # (AUTO) 0.5 K/uL (0-0.4); EOSINOPHILS % (AUTO) 8.9 % (0.0-4.0); HEMATOCRIT 32.7 % (36-52); HEMOGLOBIN 10.2 g/dL (12.0-18.0); LYMPHOCYTES # (AUTO) 1.9 K/uL (2.0-11.5); LYMPHOCYTES % (AUTO) 33.4 % (20.5-51.1); MEAN CORPUSCULAR HEMOGLOBIN 21 pg (27-31); MEAN CORPUSCULAR HGB CONC 31 g/dL (33-37); MONOCYTES # (AUTO) 0.4 K/uL (0.8-1.0); MONOCYTES % (AUTO) 6.3 % (1.7-9.3); NEUTROPHILS # (AUTO) 2.9 K/uL (1.8-7.7); NEUTROPHILS % (AUTO) 49.6 % (42.2-75.2); PLATELET COUNT (AUTO) 507 K/uL (140-450); RED BLOOD CELL COUNT(AUTO) 4.88 MIL/uL (4.20-6.10); RED CELL DISTRIBUTION WIDTH 20.3 % (11.6-13.7); WHITE BLOOD COUNT (AUTO) 5.8 K/uL (4.8-10.8)
[2023-01-20 12:43] LABS: ALBUMIN 2.2 g/dL (3.4-5.0); ANION GAP 7.2 (8-16); CALCIUM 8.4 mg/dL (8.5-10.1); CREATININE 0.5 mg/dL (0.6-1.3); POTASSIUM 4.2 mmol/L (3.5-5.1); TOTAL BILIRUBIN 0.2 mg/dL (0.0-1.0); TOTAL PROTEIN, SERUM 6.9 g/dL (6.4-8.2)
[2023-01-20] MEDS ORDERED: MIDAZOLAM 2 MG/2 ML VIAL ONE (15:20)
[2023-01-20] MEDS ORDERED: BUPIVACAINE-MPF 0.25% 30 ML VIAL INJ ONE (16:13)
[2023-01-20] MEDS ORDERED: HYDROGEN PEROXIDE 3% 240 ML BTL TP ONE (16:22)
[2023-01-20] MEDS ORDERED: SEVOFLURANE 250 ML BTL INH ONE (16:31)
[2023-01-20] MEDS ORDERED: fentaNYL citrate 0.05 MG/ML VIAL ONE (16:34)
[2023-01-20] MEDS ORDERED: PROPOFOL 200 MG/20 ML VIAL IV ONE (17:20)
[2023-01-20] MEDS ORDERED: ROCURONIUM 50 MG/5 ML VIAL IV ONE (17:20)
[2023-01-20] MEDS ORDERED: ONDANSETRON 4 MG/2 ML VIAL ONE (17:20)
[2023-01-20] MEDS ORDERED: KETOROLAC 30 MG/ML VIAL ONE (17:20)
[2023-01-20] MEDS ORDERED: NEOSTIGMINE 1:1000 10 MG/10 ML VIAL ONE (17:32)
[2023-01-20] MEDS ORDERED: GLYCOPYRROLATE 0.2 MG/ML VIAL ONE ×5 (17:32)
[2023-01-20] MEDS ORDERED: ONDANSETRON 4 MG/2 ML VIAL IVP PRN (17:35)
[2023-01-20] MEDS ORDERED: hydrALAZINE 20 MG/ML VIAL IVP PRN (17:39)
[2023-01-20] MEDS ORDERED: LABETALOL 20 MG/4 ML VIAL IVP PRN (17:39)
[2023-01-20] MEDS ORDERED: HYDROmorphone 1 MG/ML AMP IVP PRN (17:40)
[2023-01-20] MEDS: LACTATED RINGERS 1,000 ML IV SCH (18:14)
[2023-01-20 20:00] VITALS: BP 92/49; PULSE 91; RESP 18; RESP 20; TEMP 96.9; O2SAT 94; O2SAT 96
[2023-01-21] VITALS (7 sets, daily range): BP systolic 111–122; BP diastolic 66–78; PULSE 64–69; RESP 18–20; TEMP 96.3–97.5; O2SAT 94–97
[2023-01-21] MEDS: MORPHINE SULFATE 4 MG/ML SYR IVP PRN ×4 (03:03→16:28)
[2023-01-21] MEDS: LACTATED RINGERS 1,000 ML IV SCH (03:40)
[2023-01-21] MEDS: VANCOMYCIN 1,000 MG in DEXTROSE 5% 250 ML IV SCH ×2 (04:07→12:52)
[2023-01-21] MEDS: BACLOFEN 10 MG TAB PO SCH ×3 (08:42→16:28)
[2023-01-21] MEDS: MEROPENEM 1,000 MG in NACL 0.9% 50 ML IV SCH (08:42)
[2023-01-21] MEDS ORDERED: THERAHONEY GEL 42.5 GM TP PRN (14:55)
[2023-01-21] MEDS ORDERED: NON ADHERENT DRESSING TP PRN (14:55)
[2023-01-22] MEDS ORDERED: Z-GUARD PASTE TP SCH (13:00)
[2023-01-22] MEDS ORDERED: NON ADHERENT DRESSING TP SCH (13:00)
[2023-01-22] MEDS ORDERED: THERAHONEY GEL 42.5 GM TP SCH (13:00)
== END 2023-01-21 18:35 | DRG 853 ==
LOC: MED 06:30 → MTU 10:32
PROVIDERS: ADMIT Student in an Organized Health Care Education/Training Program; ATTEND Student in an Organized Health Care Education/Training Program
PROC: 0JB70ZZ Excision of Back Subcutaneous Tissue and Fascia, Open Approach (ICD-10-PCS; 2023-01-20)
PROC: 0JB90ZZ Excision of Buttock Subcutaneous Tissue and Fascia, Open Approach (ICD-10-PCS; principal; 2023-01-20 14:30)
DX: A41.9 Sepsis, unspecified organism (principal); L89.154 Pressure ulcer of sacral region, stage 4; L89.324 Pressure ulcer of left buttock, stage 4; G82.20 Paraplegia, unspecified; E87.1 Hypo-osmolality and hyponatremia; L08.9 Local infection of the skin and subcutaneous tissue, unspecified; E86.1 Hypovolemia; I10 Essential (primary) hypertension; D50.9 Iron deficiency anemia, unspecified; M54.50 Low back pain, unspecified; T14.8XXA Other injury of unspecified body region, initial encounter; X58.XXXA Exposure to other specified factors, initial encounter; Z90.49 Acquired absence of other specified parts of digestive tract; Y93.89 Activity, other specified; Y92.89 Other specified places as the place of occurrence of the external cause; Y99.8 Other external cause status
CPT/HCPCS: 36415; 36600; 71045; 80053; 80202; 82550; 82553; 82803; 83605; 83874; 83880; 84484; 85025; 85610; 85730; 86886; 86900; 86901; 87040; 87070; 87075; 87081; 87205; 88304; 93005; 96361; 96374; 96375; 99285; J1170; J1200; J1650; J1885; J2185; J2250; J2270; J2405; J2543; J2704; J2710; J3010; J3370; J3490; J7030; J7060

== ENCOUNTER 2023-03-01 09:10 | Emergency (ER) | payer OTHER ==
[2023-03-01] VITALS (8 sets, daily range): BP systolic 101–103; BP diastolic 41–60; PULSE 79–100; RESP 18; TEMP 98.2–98.5; O2SAT 93–96
[~2023-03-01] VITALS: Ht 188 cm; Wt 65.8 kg
[~2023-03-01 09:10] MED LIST changes: -Alginate Dressing MC; -ERTA1VIA2 IJ; -SULF-954 PO
[2023-03-01] MEDS ORDERED: MORPHINE SULFATE 4 MG/ML SYR IVP ONE (10:00)
[2023-03-01 10:38] LABS: BASOPHILS # (AUTO) 0.1 K/uL (0.00-0.22); BASOPHILS % (AUTO) 0.9 % (0.0-2.0); EOSINOPHILS # (AUTO) 0.3 K/uL (0-0.4); EOSINOPHILS % (AUTO) 2.9 % (0.0-4.0); HEMATOCRIT 36.2 % (36-52); HEMOGLOBIN 11.6 g/dL (12.0-18.0); LYMPHOCYTES # (AUTO) 1.1 K/uL (2.0-11.5); LYMPHOCYTES % (AUTO) 11.9 % (20.5-51.1); MEAN CORPUSCULAR HEMOGLOBIN 24 pg (27-31); MEAN CORPUSCULAR HGB CONC 32 g/dL (33-37); MEAN CORPUSCULAR VOLUME 74.3 fL (80-94); MONOCYTES # (AUTO) 0.8 K/uL (0.8-1.0); MONOCYTES % (AUTO) 8.7 % (1.7-9.3); NEUTROPHILS # (AUTO) 7.3 K/uL (1.8-7.7); NEUTROPHILS % (AUTO) 75.6 % (42.2-75.2); PLATELET COUNT (AUTO) 244 K/uL (140-450); RED BLOOD CELL COUNT(AUTO) 4.86 MIL/uL (4.20-6.10); RED CELL DISTRIBUTION WIDTH 25.4 % (11.6-13.7); WHITE BLOOD COUNT (AUTO) 9.6 K/uL (4.8-10.8)
[2023-03-01] MEDS ORDERED: ONDANSETRON 4 MG/2 ML VIAL IVP ONE (10:45)
[2023-03-01 10:49] LABS: INR 0.96 (0.8-1.2); PARTIAL THROMBOPLASTIN TIME 33.1 secs (22-35.6); PROTHROMBIN TIME 10.1 secs (10.8-13.4)
[2023-03-01 10:52] LABS: ALBUMIN 3.2 g/dL (3.4-5.0); ANION GAP 10.9 (8-16); CALCIUM 8.4 mg/dL (8.5-10.1); CARBON DIOXIDE 28.2 mmol/L (21-32); CREATININE 0.6 mg/dL (0.6-1.3); POTASSIUM 4.1 mmol/L (3.5-5.1); TOTAL BILIRUBIN 0.3 mg/dL (0.0-1.0)
[2023-03-01] MEDS ORDERED: METR-435 PO (15:48)
[2023-03-01] MEDS ORDERED: LEVO750T75 PO (15:48)
== END 2023-03-01 20:49 ==
LOC: MED 09:10
DX: K94.00 Colostomy complication, unspecified (principal); K63.3 Ulcer of intestine; I25.10 Atherosclerotic heart disease of native coronary artery without angina pectoris; Z79.899 Other long term (current) drug therapy
CPT/HCPCS: 36415; 74177; 80053; 85025; 85610; 85730; 86886; 86900; 86901; 96374; 96375; 99285; J2270; J2405; Q9967

== ENCOUNTER 2023-04-14 12:16 | Emergency (ER) | payer OTHER ==
[~2023-04-14] VITALS: Ht 188 cm; Wt 68.0 kg
[~2023-04-14 12:16] MED LIST changes: -BACL10TA4 PO; -FERR325E14 PO; +LEVO750T75 PO; +METR-435 PO; -QUET100T44 PO
[2023-04-14 12:32] VITALS: BP 76/52; PULSE 89; RESP 19; TEMP 98.2; O2SAT 100
[2023-04-14] MEDS ORDERED: NACL 0.9% 2,000 ML IV ONE (13:00)
[2023-04-14 13:27] VITALS: BP 98/58; PULSE 89; RESP 19; O2SAT 100
[2023-04-14 13:49] LABS: BASOPHILS # (AUTO) 0.1 K/uL (0.00-0.22); BASOPHILS % (AUTO) 1.3 % (0.0-2.0); EOSINOPHILS # (AUTO) 0.3 K/uL (0-0.4); EOSINOPHILS % (AUTO) 4.1 % (0.0-4.0); HEMATOCRIT 37.4 % (36-52); LYMPHOCYTES # (AUTO) 1.1 K/uL (2.0-11.5); LYMPHOCYTES % (AUTO) 16.3 % (20.5-51.1); MEAN CORPUSCULAR HEMOGLOBIN 25 pg (27-31); MEAN CORPUSCULAR HGB CONC 32 g/dL (33-37); MONOCYTES # (AUTO) 0.5 K/uL (0.8-1.0); NEUTROPHILS # (AUTO) 4.7 K/uL (1.8-7.7); NEUTROPHILS % (AUTO) 71.3 % (42.2-75.2); PLATELET COUNT (AUTO) 278 K/uL (140-450); RED BLOOD CELL COUNT(AUTO) 4.86 MIL/uL (4.20-6.10); RED CELL DISTRIBUTION WIDTH 19.5 % (11.6-13.7); WHITE BLOOD COUNT (AUTO) 6.6 K/uL (4.8-10.8)
[2023-04-14 14:14] LABS: ALANINE AMINOTRANSFERASE 13 U/L (12-78); ALBUMIN 3.3 g/dL (3.4-5.0); ALKALINE PHOSPHATASE 67 U/L (50-136); ASPARTATE AMINOTRANSFERASE 13 U/L (15-37); LIPASE 37 U/L (16-77); TOTAL BILIRUBIN 0.2 mg/dL (0.0-1.0); TOTAL PROTEIN, SERUM 6.8 g/dL (6.4-8.2)
[2023-04-14 14:19] LABS: ANION GAP 12.8 (8-16); CALCIUM 8.6 mg/dL (8.5-10.1); CARBON DIOXIDE 30.1 mmol/L (21-32); CREATININE 0.8 mg/dL (0.6-1.3)
[2023-04-14 14:25] LABS: POTASSIUM 2.9 mmol/L (3.5-5.1)
[2023-04-14 14:36] LABS: APPEARANCE,URINE SL CLOUDY (CLEAR); BILIRUBIN,URINE 1+ (NEGATIVE); BLOOD, URINE TRACE-I (NEGATIVE); COLOR,URINE YELLOW (YELLOW); LEUKOCYTE ESTERASE ,URINE 2+ (NEGATIVE); NITRITE, URINE NEGATIVE (NEGATIVE); PROTEIN,URINE 1+ (NEGATIVE); UGLUCOSE NEGATIVE (NEGATIVE); UROBILINOGEN,URINE 0.2 EU/dL (0.2 - 1)
[2023-04-14 14:44] LABS: ICTOTEST POSITIVE (NEGATIVE)
[2023-04-14 14:46] LABS: RBC,URINE 0-5 /HPF (0-5)
[2023-04-14 14:47] LABS: BACTERIA,URINE 1+ /HPF (None Seen); MUCUS,URINE None Seen /LPF (None Seen); SQUAMOUS EPITHELIAL CELL,UR 0-3 (FEW) /LPF (0-3 (FEW))
[2023-04-14] MEDS ORDERED: POTASSIUM CHLORIDE 20% 40 MEQ/15 ML UDC PO ONE (14:50)
[2023-04-14] MEDS ORDERED: POTASSIUM CHLORIDE 10 MEQ TABER PO ONE ×3 (14:55→16:20)
[2023-04-14 15:41] LABS: LACTIC ACID 1.6 mmol/L (0.4-2.0)
[2023-04-14] MEDS ORDERED: POTA10TA70 PO (16:04)
[2023-04-14] MEDS ORDERED: CIPR500T4 PO (16:04)
[2023-04-14] MEDS ORDERED: ACETAMINOPHEN 325 MG TAB PO ONE (16:10)
== END 2023-04-14 16:47 | disposition home or self-care (01) ==
LOC: MED 12:16
DX: I95.9 Hypotension, unspecified (principal); Z79.899 Other long term (current) drug therapy
CPT/HCPCS: 36415; 71045; 80048; 80076; 81001; 83605; 83690; 84484; 85025; 87040; 87086; 93005; 96360; 96361; 99285; J7030

== ENCOUNTER 2023-05-28 12:29 | Emergency (ER) | payer OTHER ==
[~2023-05-28] VITALS: Ht 188 cm; Wt 65.8 kg
[~2023-05-28 12:29] MED LIST changes: +CIPR500T4 PO; +POTA10TA70 PO
[2023-05-28 12:35] VITALS: BP 143/103; PULSE 111; RESP 16; TEMP 98.9; O2SAT 97
[2023-05-28] MEDS ORDERED: MORPHINE SULFATE 4 MG/ML SYR IVP ONE (13:40)
[2023-05-28] MEDS ORDERED: NACL 0.9% 1,000 ML IV SCH (13:40)
[2023-05-28] MEDS ORDERED: PIPERACILLIN/TAZOBACTAM 3.375 GM in DEXTROSE 5% 50 ML IV ONE (13:40)
[2023-05-28] MEDS ORDERED: NACL 0.9% 1,000 ML IV ONE (13:40)
[2023-05-28] MEDS ORDERED: ONDANSETRON 4 MG/2 ML VIAL IVP ONE (13:40)
[2023-05-28 14:37] LABS: APPEARANCE,URINE CLEAR (CLEAR); BILIRUBIN,URINE NEGATIVE (NEGATIVE); BLOOD, URINE 2+ (NEGATIVE); COLOR,URINE YELLOW (YELLOW); LEUKOCYTE ESTERASE ,URINE 2+ (NEGATIVE); NITRITE, URINE POSITIVE (NEGATIVE); PROTEIN,URINE 1+ (NEGATIVE); UGLUCOSE NEGATIVE (NEGATIVE); UROBILINOGEN,URINE 0.2 EU/dL (0.2 - 1)
[2023-05-28 14:58] LABS: BASOPHILS # (AUTO) 0.1 K/uL (0.00-0.22); EOSINOPHILS # (AUTO) 0.2 K/uL (0-0.4); EOSINOPHILS % (AUTO) 2.4 % (0.0-4.0); HEMATOCRIT 39.1 % (36-52); HEMOGLOBIN 13.1 g/dL (12.0-18.0); LYMPHOCYTES # (AUTO) 1.2 K/uL (2.0-11.5); LYMPHOCYTES % (AUTO) 15.4 % (20.5-51.1); MEAN CORPUSCULAR HEMOGLOBIN 25 pg (27-31); MEAN CORPUSCULAR HGB CONC 33 g/dL (33-37); MEAN CORPUSCULAR VOLUME 74.6 fL (80-94); MONOCYTES # (AUTO) 0.7 K/uL (0.8-1.0); MONOCYTES % (AUTO) 8.6 % (1.7-9.3); NEUTROPHILS # (AUTO) 5.8 K/uL (1.8-7.7); NEUTROPHILS % (AUTO) 72.6 % (42.2-75.2); PLATELET COUNT (AUTO) 439 K/uL (140-450); RED BLOOD CELL COUNT(AUTO) 5.24 MIL/uL (4.20-6.10); RED CELL DISTRIBUTION WIDTH 17.8 % (11.6-13.7); WHITE BLOOD COUNT (AUTO) 7.9 K/uL (4.8-10.8)
[2023-05-28] MEDS ORDERED: MORPHINE SULFATE 4 MG/ML SYR ONE (15:09)
[2023-05-28] MEDS ORDERED: ONDANSETRON 4 MG/2 ML VIAL ONE (15:10)
[2023-05-28] MEDS ORDERED: PIPERACILLIN/TAZOBACTAM 3.375 GM VIAL IV ONE (15:10)
[2023-05-28 15:14] LABS: BACTERIA,URINE 2+ /HPF (None Seen); MUCUS,URINE 1+ /LPF (None Seen); RBC,URINE 50-80 /HPF (0-5); SQUAMOUS EPITHELIAL CELL,UR 20-50 /LPF (0-3 (FEW)); TRICHOMONAS,URINE None Seen /HPF (None Seen); WBC,URINE 16-25 (MOD) /HPF (0-5); YEAST,URINE None Seen /HPF (None Seen)
[2023-05-28 15:18] LABS: ANION GAP 9.7 (8-16); CALCIUM 9.2 mg/dL (8.5-10.1); CARBON DIOXIDE 31.2 mmol/L (21-32); CREATININE 0.7 mg/dL (0.6-1.3); POTASSIUM 3.9 mmol/L (3.5-5.1)
[2023-05-28 15:25] LABS: ALBUMIN 2.6 g/dL (3.4-5.0); TOTAL BILIRUBIN 0.2 mg/dL (0.0-1.0)
[2023-05-28 15:27] LABS: LACTIC ACID 0.9 mmol/L (0.4-2.0)
[2023-05-28 15:30] LABS: INR 0.95 (0.8-1.2); PARTIAL THROMBOPLASTIN TIME 29.9 secs (22-35.6)
[2023-05-28] MEDS ORDERED: CIPR500T4 PO (16:31)
[2023-05-28] MEDS ORDERED: BACLOFEN 10 MG TAB PO ONE (17:20)
[2023-05-28 20:01] VITALS: BP 94/52; PULSE 88; RESP 16; TEMP 98.4; O2SAT 97
== END 2023-05-28 20:01 | disposition home or self-care (01) ==
LOC: MED 12:29
DX: T83.038A Leakage of other urinary catheter, initial encounter (principal); R00.0 Tachycardia, unspecified; Z79.899 Other long term (current) drug therapy; Z79.2 Long term (current) use of antibiotics; Y84.6 Urinary catheterization as the cause of abnormal reaction of the patient, or of later complication, without mention of misadventure at the time of the procedure
CPT/HCPCS: 36415; 51705; 80048; 80076; 81001; 82550; 82553; 83605; 85025; 85610; 85730; 87040; 87086; 96365; 96375; 99285; J2270; J2405; J2543; J7030; 51702

== ENCOUNTER 2023-07-05 06:50 | Emergency (ER) | payer OTHER ==
[~2023-07-05] VITALS: Ht 188 cm; Wt 65.8 kg
[2023-07-05 07:00] VITALS: BP 128/77; PULSE 88; RESP 16; TEMP 97.6; O2SAT 97
[2023-07-05] MEDS: HYDROcodone/APAP 5/325 MG 1 TAB TAB PO ONE (07:41)
[2023-07-05 10:44] VITALS: BP 126/61; PULSE 70; RESP 16; TEMP 98.3; O2SAT 95
== END 2023-07-05 10:45 | disposition home or self-care (01) ==
LOC: MED 06:50
DX: S82.102A Unspecified fracture of upper end of left tibia, initial encounter for closed fracture (principal); S32.312A Displaced avulsion fracture of left ilium, initial encounter for closed fracture; S90.02XA Contusion of left ankle, initial encounter; Z79.899 Other long term (current) drug therapy; W23.0XXA Caught, crushed, jammed, or pinched between moving objects, initial encounter; Y93.89 Activity, other specified; Y92.89 Other specified places as the place of occurrence of the external cause; Y99.8 Other external cause status
CPT/HCPCS: 73700; 99284

== ENCOUNTER 2023-07-13 07:53 | Emergency (ER) | payer OTHER ==
[~2023-07-13] VITALS: Ht 188 cm; Wt 70.3 kg
[2023-07-13 07:56] VITALS: BP 113/77; PULSE 98; RESP 15; TEMP 97.1; O2SAT 100
[2023-07-13 12:43] VITALS: BP 107/66; PULSE 85; RESP 15; TEMP 97.1; O2SAT 100
== END 2023-07-13 12:43 | disposition home or self-care (01) ==
LOC: MED 07:53
DX: R33.9 Retention of urine, unspecified (principal); G82.50 Quadriplegia, unspecified; T83.098A Other mechanical complication of other urinary catheter, initial encounter; Z79.899 Other long term (current) drug therapy
CPT/HCPCS: 51705; 99284

== ENCOUNTER 2023-08-07 21:33 | Emergency (ER) | payer OTHER ==
[~2023-08-07] VITALS: Ht 180.3 cm; Wt 77.1 kg
[~2023-08-07 21:33] MED LIST changes: +BACL20TA4 PO; +CHLO118S2 TP; -CIPR500T4 PO; -LEVO750T75 PO; -METR-435 PO; +MUPI2CRE22 NS; +PIPE1SOL IV; -POTA10TA70 PO; +ZOLP5TAB1 PO
[2023-08-07 21:40] VITALS: BP 129/90; PULSE 122; RESP 20; TEMP 97.6; O2SAT 98
[2023-08-07] MEDS: MORPHINE SULFATE 4 MG/ML SYR IM ONE (23:18)
[2023-08-08 02:46] VITALS: O2SAT 98
[2023-08-08 06:05] VITALS: O2SAT 98
[2023-08-08] MEDS: MORPHINE SULFATE 4 MG/ML SYR IM ONE (08:13)
[2023-08-08] MEDS: BACLOFEN 10 MG TAB PO ONE (10:55)
[2023-08-08 11:35] VITALS: BP 109/65; PULSE 100; RESP 20; TEMP 98.9; O2SAT 97
== END 2023-08-08 11:35 ==
LOC: MED 21:33
DX: M54.50 Low back pain, unspecified (principal); G82.50 Quadriplegia, unspecified; I25.10 Atherosclerotic heart disease of native coronary artery without angina pectoris; Z79.899 Other long term (current) drug therapy
CPT/HCPCS: 96372; 99285; J2270

== ENCOUNTER 2023-08-22 04:30 | Emergency (ER) | payer OTHER ==
[~2023-08-22] VITALS: Ht 175.3 cm; Wt 76.7 kg
[2023-08-22 04:40] VITALS: BP 113/78; PULSE 122; RESP 18; TEMP 98.2; O2SAT 97
[2023-08-22 10:15] VITALS: BP 123/74; PULSE 100; RESP 18; TEMP 98.2; O2SAT 98
== END 2023-08-22 10:20 | disposition home or self-care (01) ==
LOC: MED 04:30
DX: Z43.3 Encounter for attention to colostomy (principal); T83.098A Other mechanical complication of other urinary catheter, initial encounter; Z79.899 Other long term (current) drug therapy
CPT/HCPCS: 51705; 99284

== ENCOUNTER 2023-09-01 18:40 | Emergency (ER) | payer OTHER ==
[~2023-09-01] VITALS: Ht 188 cm; Wt 68.0 kg
[2023-09-01 18:49] VITALS: BP 126/90; PULSE 102; RESP 18; TEMP 98; O2SAT 98
[2023-09-01 21:00] VITALS: BP 126/90; PULSE 102; RESP 18; TEMP 98; O2SAT 98
== END 2023-09-01 21:11 | disposition home or self-care (01) ==
LOC: MED 18:40
DX: T83.028A Displacement of other urinary catheter, initial encounter (principal); Z79.899 Other long term (current) drug therapy
CPT/HCPCS: 51702; 99284

== ENCOUNTER 2023-10-02 19:33 | Emergency (ER) | payer OTHER ==
[~2023-10-02] VITALS: Ht 182.9 cm; Wt 65.8 kg
[2023-10-02 19:36] VITALS: BP 135/72; PULSE 102; RESP 18; TEMP 97.6; O2SAT 98
[2023-10-02] MEDS: HYDROcodone/APAP 5/325 MG 1 TAB TAB PO ONE (21:06)
[2023-10-03] MEDS ORDERED: CEPH-588 PO (00:12)
[2023-10-03] MEDS: BACLOFEN 10 MG TAB PO SCH (02:44)
[2023-10-03 06:01] VITALS: BP 122/75; PULSE 92; RESP 16; TEMP 98; O2SAT 96
== END 2023-10-03 06:01 ==
LOC: MED 19:33
DX: M79.662 Pain in left lower leg (principal); L98.428 Non-pressure chronic ulcer of back with other specified severity; Z79.899 Other long term (current) drug therapy
CPT/HCPCS: 73700; 99285

== ENCOUNTER 2023-10-25 15:47 | Inpatient (IN) | payer OTHER ==
[~2023-10-25] VITALS: Ht 167.6 cm; Wt 62.6 kg
[~2023-10-25 15:47] MED LIST changes: +CEPH-588 PO
[2023-10-25 15:49] VITALS: BP 173/113; PULSE 94; RESP 18; TEMP 97.9; O2SAT 96
[2023-10-25 15:55] VITALS: O2SAT 96
[2023-10-25 16:44] LABS: HEMOGLOBIN 12.2 g/dL (12.0-18.0); WHITE BLOOD COUNT (AUTO) 10.3 K/uL (4.8-10.8)
[2023-10-25 16:45] LABS: ANION GAP 11.3 (8-16); CALCIUM 8.8 mg/dL (8.5-10.1); CARBON DIOXIDE 27.2 mmol/L (21-32); CREATININE 0.6 mg/dL (0.6-1.3); POTASSIUM 3.5 mmol/L (3.5-5.1)
[2023-10-25 16:50] LABS: BASOPHILS # (AUTO) 0.1 K/uL (0.00-0.22); BASOPHILS % (AUTO) 0.7 % (0.0-2.0); EOSINOPHILS # (AUTO) 0.2 K/uL (0-0.4); EOSINOPHILS % (AUTO) 1.8 % (0.0-4.0); HEMATOCRIT 38.5 % (36-52); LYMPHOCYTES # (AUTO) 1.2 K/uL (2.0-11.5); LYMPHOCYTES % (AUTO) 11.7 % (20.5-51.1); MEAN CORPUSCULAR HEMOGLOBIN 23 pg (27-31); MEAN CORPUSCULAR HGB CONC 32 g/dL (33-37); MEAN CORPUSCULAR VOLUME 71.5 fL (80-94); MONOCYTES # (AUTO) 0.8 K/uL (0.8-1.0); NEUTROPHILS % (AUTO) 77.8 % (42.2-75.2); PLATELET COUNT (AUTO) 391 K/uL (140-450); RED BLOOD CELL COUNT(AUTO) 5.38 MIL/uL (4.20-6.10); RED CELL DISTRIBUTION WIDTH 20.2 % (11.6-13.7)
[2023-10-25] MEDS: MORPHINE SULFATE 10 MG/ML VIAL IVP ONE (17:15)
[2023-10-25] MEDS: NACL 0.9% 1,000 ML IV ONE ×2 (17:29→18:47)
[2023-10-25 18:32] VITALS: O2SAT 95
[2023-10-25 20:40] VITALS: PULSE 84; RESP 18; O2SAT 97
[2023-10-26] VITALS: BP 144/99; PULSE 71; PULSE 84; RESP 18; TEMP 97.5; O2SAT 96
[2023-10-26] MEDS: BACLOFEN 10 MG TAB PO ONE (02:25)
[2023-10-26 04:00] VITALS: BP 145/81; PULSE 68; PULSE 76; RESP 18; TEMP 97.9; O2SAT 96
[2023-10-26 07:09] LABS: BASOPHILS # (AUTO) 0.1 K/uL (0.00-0.22); BASOPHILS % (AUTO) 1.1 % (0.0-2.0); EOSINOPHILS # (AUTO) 0.3 K/uL (0-0.4); EOSINOPHILS % (AUTO) 4.2 % (0.0-4.0); HEMATOCRIT 35.4 % (36-52); HEMOGLOBIN 11.5 g/dL (12.0-18.0); LYMPHOCYTES # (AUTO) 1.6 K/uL (2.0-11.5); LYMPHOCYTES % (AUTO) 23.9 % (20.5-51.1); MEAN CORPUSCULAR HEMOGLOBIN 23 pg (27-31); MEAN CORPUSCULAR HGB CONC 32 g/dL (33-37); MEAN CORPUSCULAR VOLUME 71.8 fL (80-94); MONOCYTES # (AUTO) 0.5 K/uL (0.8-1.0); MONOCYTES % (AUTO) 6.8 % (1.7-9.3); NEUTROPHILS # (AUTO) 4.4 K/uL (1.8-7.7); PLATELET COUNT (AUTO) 349 K/uL (140-450); RED BLOOD CELL COUNT(AUTO) 4.93 MIL/uL (4.20-6.10); RED CELL DISTRIBUTION WIDTH 20.1 % (11.6-13.7); WHITE BLOOD COUNT (AUTO) 6.9 K/uL (4.8-10.8)
[2023-10-26 07:18] LABS: ANION GAP 10.7 (8-16); CALCIUM 8.2 mg/dL (8.5-10.1); CARBON DIOXIDE 26.9 mmol/L (21-32); CREATININE 0.6 mg/dL (0.6-1.3); POTASSIUM 3.6 mmol/L (3.5-5.1)
[2023-10-26 08:00] VITALS: BP 137/87; PULSE 63; PULSE 72; PULSE 84; RESP 18; TEMP 97.5; O2SAT 97
[2023-10-26] MEDS ORDERED: ACETAMINOPHEN 325 MG TAB PO PRN (11:10)
[2023-10-26] MEDS ORDERED: POTASSIUM CHLORIDE 10 MEQ TABER PO PRN (11:10)
[2023-10-26] MEDS ORDERED: ONDANSETRON 4 MG/2 ML VIAL IVP PRN (11:10)
[2023-10-26] MEDS ORDERED: MAG SULF 2000 MG/WATER PREMIX 50 ML IV PRN (11:10)
[2023-10-26] MEDS: NACL 0.9% 1,000 ML IV SCH (11:10)
[2023-10-26 12:00] VITALS: BP 147/70; PULSE 81; RESP 18; TEMP 98.5; O2SAT 96
[2023-10-26] MEDS ORDERED: THERAHONEY GEL 42.5 GM TP PRN (12:05)
[2023-10-26 12:26] LABS: BASOPHILS # (AUTO) 0.1 K/uL (0.00-0.22); BASOPHILS % (AUTO) 1.4 % (0.0-2.0); EOSINOPHILS # (AUTO) 0.2 K/uL (0-0.4); EOSINOPHILS % (AUTO) 3.2 % (0.0-4.0); HEMATOCRIT 36.9 % (36-52); HEMOGLOBIN 11.7 g/dL (12.0-18.0); LYMPHOCYTES # (AUTO) 1.3 K/uL (2.0-11.5); LYMPHOCYTES % (AUTO) 17.9 % (20.5-51.1); MEAN CORPUSCULAR HEMOGLOBIN 23 pg (27-31); MEAN CORPUSCULAR HGB CONC 32 g/dL (33-37); MEAN CORPUSCULAR VOLUME 71.6 fL (80-94); MONOCYTES # (AUTO) 0.5 K/uL (0.8-1.0); MONOCYTES % (AUTO) 6.7 % (1.7-9.3); NEUTROPHILS # (AUTO) 5.1 K/uL (1.8-7.7); NEUTROPHILS % (AUTO) 70.8 % (42.2-75.2); PLATELET COUNT (AUTO) 375 K/uL (140-450); RED BLOOD CELL COUNT(AUTO) 5.15 MIL/uL (4.20-6.10); RED CELL DISTRIBUTION WIDTH 20.1 % (11.6-13.7); WHITE BLOOD COUNT (AUTO) 7.3 K/uL (4.8-10.8)
[2023-10-26 12:40] LABS: ANION GAP 9.4 (8-16); CALCIUM 8.2 mg/dL (8.5-10.1); CARBON DIOXIDE 29.3 mmol/L (21-32); CREATININE 0.6 mg/dL (0.6-1.3); POTASSIUM 3.7 mmol/L (3.5-5.1)
[2023-10-26 12:42] LABS: PARTIAL THROMBOPLASTIN TIME 29.7 secs (22-35.6); PROTHROMBIN TIME 10.5 secs (10.8-13.4)
[2023-10-26 12:47] LABS: LACTIC ACID 1.4 mmol/L (0.4-2.0)
[2023-10-26 12:53] LABS: AMYLASE 50 U/L (25-115); CHOL/HDL RATIO 2.6 (1-4.5); CHOLESTEROL 102 mg/dL (<200); FREE T4 (FREE THYROXINE) 0.98 ng/dL (0.76-1.46); HDL CHOLESTEROL 40 mg/dL (40-60); LDL (CALC) 50 mg/dL (60-100); LIPASE 36 U/L (16-77); MAGNESIUM 1.7 mg/dL (1.8-2.4); PHOSPHORUS 2.6 mg/dL (2.5-4.9); THYROID STIMULATING HORMONE 0.77 uIU/mL (0.34-3.74); TRIGLYCERIDES 62 mg/dL (30-150)
[2023-10-26] MEDS ORDERED: BACLOFEN PO SCH (13:00)
[2023-10-26] MEDS: THERAHONEY GEL 42.5 GM TP SCH (13:00)
[2023-10-26] MEDS: BACLOFEN 10 MG TAB PO SCH (15:03)
[2023-10-26] MEDS: HYDROcodone/APAP 7.5/325 MG 1 TAB PO PRN (15:05)
[2023-10-26] MEDS ORDERED: BACLOFEN 10 MG TAB PO SCH (15:45)
[2023-10-26 16:00] VITALS: BP 151/106; PULSE 64; RESP 19; TEMP 97.8; O2SAT 98
[2023-10-26] MEDS ORDERED: DEXTROSE 50% 50 ML SYR IVP PRN (16:40)
[2023-10-26] MEDS ORDERED: VANCOMYCIN PER PHARMACY MC PRN (17:25)
[2023-10-26 18:32] LABS: BILIRUBIN,URINE NEGATIVE (NEGATIVE); BLOOD, URINE TRACE-I (NEGATIVE); COLOR,URINE YELLOW (YELLOW); LEUKOCYTE ESTERASE ,URINE 3+ (NEGATIVE); NITRITE, URINE POSITIVE (NEGATIVE); PH,URINE 7.5 (5.0-9.0); PROTEIN,URINE NEGATIVE (NEGATIVE); UGLUCOSE NEGATIVE (NEGATIVE); UROBILINOGEN,URINE 0.2 EU/dL (0.2 - 1)
[2023-10-26 18:33] LABS: APPEARANCE,URINE CLOUDY (CLEAR)
[2023-10-26 18:39] LABS: RBC,URINE 0-5 /HPF (0-5); WBC,URINE 16-25 (MOD) /HPF (0-5)
[2023-10-26 18:40] LABS: BACTERIA,URINE >30 (MANY) /HPF (None Seen); SQUAMOUS EPITHELIAL CELL,UR 0-3 (FEW) /LPF (0-3 (FEW))
[2023-10-26 18:42] LABS: BARBITURATE, URINE NEGATIVE ng/ml (NEG <=200)
[2023-10-26 18:43] LABS: AMPHETAMINE, URINE POSITIVE ng/ml (NEG <=1000); BENZODIAZEPINE, URINE NEGATIVE ng/mL (NEG <=200); CANNABINOID, URINE POSITIVE ng/mL (NEG <=50); COCAINE, URINE NEGATIVE ng/mL (NEG <=300); OPIATE, URINE POSITIVE ng/mL (NEG <=2000); PHENCYCLIDINE SCREEN,URINE NEGATIVE ng/mL (NEG <=25)
[2023-10-26 20:00] VITALS: BP 147/82; PULSE 65; PULSE 68; PULSE 80; RESP 18; TEMP 98.2; O2SAT 92; O2SAT 97
[2023-10-26] MEDS: VANCOMYCIN 1,000 MG in DEXTROSE 5% 250 ML IV SCH (21:00)
[2023-10-26] MEDS: BLOOD GLUCOSE MONITORING 1 DEV DEV FS SCH (21:07)
[2023-10-26] MEDS: DOCUSATE SODIUM 100 MG GELCAP PO SCH (21:10)
[2023-10-26] MEDS: PIPERACILLIN/TAZOBACTAM 3.375 GM in DEXTROSE 5% 50 ML IV SCH (23:59)
[2023-10-26] MEDS: PIPERACILLIN/TAZOBACTAM 3.375 GM VIAL IV ONE (23:59)
[2023-10-27] VITALS: BP 159/81; PULSE 64; PULSE 72; RESP 19; TEMP 97.9; O2SAT 97
[2023-10-27] MEDS: BACLOFEN 10 MG TAB PO PRN ×2 (01:48→11:00)
[2023-10-27 04:00] VITALS: BP 123/76; PULSE 75; PULSE 93; RESP 18; TEMP 98.4; O2SAT 97
[2023-10-27 06:53] LABS: BASOPHILS # (AUTO) 0.1 K/uL (0.00-0.22); BASOPHILS % (AUTO) 1.8 % (0.0-2.0); EOSINOPHILS # (AUTO) 0.4 K/uL (0-0.4); HEMATOCRIT 37.4 % (36-52); LYMPHOCYTES # (AUTO) 1.9 K/uL (2.0-11.5); LYMPHOCYTES % (AUTO) 27.2 % (20.5-51.1); MEAN CORPUSCULAR HEMOGLOBIN 23 pg (27-31); MEAN CORPUSCULAR HGB CONC 32 g/dL (33-37); MEAN CORPUSCULAR VOLUME 71.6 fL (80-94); MONOCYTES # (AUTO) 0.6 K/uL (0.8-1.0); MONOCYTES % (AUTO) 8.4 % (1.7-9.3); NEUTROPHILS % (AUTO) 57.6 % (42.2-75.2); PLATELET COUNT (AUTO) 386 K/uL (140-450); RED BLOOD CELL COUNT(AUTO) 5.22 MIL/uL (4.20-6.10); RED CELL DISTRIBUTION WIDTH 20.3 % (11.6-13.7)
[2023-10-27 07:15] LABS: ANION GAP 11.7 (8-16); CALCIUM 8.6 mg/dL (8.5-10.1); CARBON DIOXIDE 27.4 mmol/L (21-32); CREATININE 0.6 mg/dL (0.6-1.3); POTASSIUM 4.1 mmol/L (3.5-5.1)
[2023-10-27 08:00] VITALS: BP 132/89; PULSE 68; PULSE 80; RESP 18; TEMP 97.6; TEMP 98.2; O2SAT 92
[2023-10-27 08:08] LABS: MAGNESIUM 1.9 mg/dL (1.8-2.4); PHOSPHORUS 3.6 mg/dL (2.5-4.9)
[2023-10-27] MEDS: PANTOPRAZOLE 40 MG INJ VIAL IVP SCH (09:00)
[2023-10-27 09:07] LABS: FOLIC ACID 10.7 ng/mL (>3.0)
[2023-10-27 12:00] VITALS: PULSE 67; TEMP 97
[2023-10-27 16:00] VITALS: BP 90/54; PULSE 84; RESP 18; TEMP 98.5
[2023-10-27 20:00] VITALS: BP 135/72; PULSE 70; PULSE 74; PULSE 88; RESP 18; TEMP 98.3; O2SAT 92; O2SAT 97
[2023-10-27] MEDS: VANCOMYCIN 1,000 MG in DEXTROSE 5% 250 ML IV SCH (22:46)
[2023-10-28] VITALS: BP 153/99; PULSE 84; RESP 19; TEMP 97.8; O2SAT 98
[2023-10-28 04:00] VITALS: BP 155/90; PULSE 57; PULSE 92; RESP 18; TEMP 97; O2SAT 97
[2023-10-28 08:00] VITALS: PULSE 70; PULSE 76; RESP 18; TEMP 98.3; O2SAT 92
[2023-10-28 12:00] VITALS: BP 140/92; PULSE 97; RESP 18; TEMP 97; O2SAT 94
[2023-10-28] MEDS ORDERED: ZOS3.375PM IV (13:48)
[2023-10-28] MEDS ORDERED: PIPE1SOL IV (13:48)
[2023-10-28] MEDS ORDERED: VANC1PLA7 IV (13:48)
[2023-10-28] MEDS: VANCOMYCIN 1,000 MG in DEXTROSE 5% 250 ML IV SCH (14:03)
[2023-10-28 16:00] VITALS: TEMP 98
[2023-10-28 20:00] VITALS: BP 151/91; PULSE 71; RESP 18; TEMP 98.2; O2SAT 95
[2023-10-29 06:47] LABS: BASOPHILS # (AUTO) 0.1 K/uL (0.00-0.22); EOSINOPHILS # (AUTO) 0.4 K/uL (0-0.4); EOSINOPHILS % (AUTO) 5.4 % (0.0-4.0); HEMATOCRIT 37.2 % (36-52); HEMOGLOBIN 11.9 g/dL (12.0-18.0); LYMPHOCYTES # (AUTO) 1.6 K/uL (2.0-11.5); LYMPHOCYTES % (AUTO) 23.5 % (20.5-51.1); MEAN CORPUSCULAR HEMOGLOBIN 23 pg (27-31); MEAN CORPUSCULAR HGB CONC 32 g/dL (33-37); MEAN CORPUSCULAR VOLUME 71.4 fL (80-94); MONOCYTES # (AUTO) 0.7 K/uL (0.8-1.0); MONOCYTES % (AUTO) 9.6 % (1.7-9.3); NEUTROPHILS # (AUTO) 4.2 K/uL (1.8-7.7); NEUTROPHILS % (AUTO) 59.5 % (42.2-75.2); PLATELET COUNT (AUTO) 348 K/uL (140-450); RED BLOOD CELL COUNT(AUTO) 5.21 MIL/uL (4.20-6.10); RED CELL DISTRIBUTION WIDTH 19.9 % (11.6-13.7)
[2023-10-29 07:30] LABS: ANION GAP 10.4 (8-16); CALCIUM 8.5 mg/dL (8.5-10.1); CARBON DIOXIDE 29.8 mmol/L (21-32); CREATININE 0.6 mg/dL (0.6-1.3); POTASSIUM 4.2 mmol/L (3.5-5.1)
[2023-10-29 07:36] LABS: MAGNESIUM 2.1 mg/dL (1.8-2.4); PHOSPHORUS 3.3 mg/dL (2.5-4.9)
[2023-10-29 08:00] VITALS: BP 137/95; PULSE 71; PULSE 86; RESP 16; RESP 18; TEMP 97.6; O2SAT 95; O2SAT 96
[2023-10-29 16:00] VITALS: BP 95/56; PULSE 98; RESP 18; TEMP 97.1; O2SAT 100
[2023-10-29 20:00] VITALS: PULSE 75; RESP 18; TEMP 97; O2SAT 95
[2023-10-29] MEDS: traZODone 50 MG TAB PO PRN (23:24)
[2023-10-30 07:00] LABS: BASOPHILS # (AUTO) 0.1 K/uL (0.00-0.22); BASOPHILS % (AUTO) 1.4 % (0.0-2.0); EOSINOPHILS # (AUTO) 0.4 K/uL (0-0.4); EOSINOPHILS % (AUTO) 5.2 % (0.0-4.0); HEMATOCRIT 33.5 % (36-52); HEMOGLOBIN 10.7 g/dL (12.0-18.0); LYMPHOCYTES # (AUTO) 2.2 K/uL (2.0-11.5); LYMPHOCYTES % (AUTO) 31.8 % (20.5-51.1); MEAN CORPUSCULAR HEMOGLOBIN 23 pg (27-31); MEAN CORPUSCULAR HGB CONC 32 g/dL (33-37); MEAN CORPUSCULAR VOLUME 71.6 fL (80-94); MONOCYTES # (AUTO) 0.5 K/uL (0.8-1.0); MONOCYTES % (AUTO) 7.7 % (1.7-9.3); NEUTROPHILS # (AUTO) 3.7 K/uL (1.8-7.7); NEUTROPHILS % (AUTO) 53.9 % (42.2-75.2); PLATELET COUNT (AUTO) 311 K/uL (140-450); RED BLOOD CELL COUNT(AUTO) 4.69 MIL/uL (4.20-6.10); RED CELL DISTRIBUTION WIDTH 19.8 % (11.6-13.7); WHITE BLOOD COUNT (AUTO) 6.8 K/uL (4.8-10.8)
[2023-10-30 07:13] LABS: ANION GAP 11.2 (8-16); CALCIUM 8.2 mg/dL (8.5-10.1); CREATININE 0.7 mg/dL (0.6-1.3); POTASSIUM 4.2 mmol/L (3.5-5.1)
[2023-10-30 07:29] LABS: MAGNESIUM 1.9 mg/dL (1.8-2.4); PHOSPHORUS 4.3 mg/dL (2.5-4.9)
[2023-10-30 08:00] VITALS: PULSE 75; RESP 18; TEMP 97; TEMP 98; O2SAT 95
[2023-10-30] MEDS: VANCOMYCIN HCL 750 MG in DEXTROSE 5% 250 ML IV SCH (12:17)
[2023-10-30 16:00] VITALS: TEMP 98
[2023-10-30 20:00] VITALS: PULSE 92; RESP 18; TEMP 98.1; O2SAT 96
[2023-10-30] MEDS: INSULIN LISPRO SLIDING SCALE 100 UNITS/ML VIAL SUBQ PRN (22:38)
[2023-10-31 07:26] LABS: BASOPHILS # (AUTO) 0.1 K/uL (0.00-0.22); BASOPHILS % (AUTO) 0.9 % (0.0-2.0); EOSINOPHILS # (AUTO) 0.4 K/uL (0-0.4); EOSINOPHILS % (AUTO) 4.6 % (0.0-4.0); HEMATOCRIT 33.9 % (36-52); HEMOGLOBIN 10.8 g/dL (12.0-18.0); LYMPHOCYTES # (AUTO) 2.6 K/uL (2.0-11.5); LYMPHOCYTES % (AUTO) 33.3 % (20.5-51.1); MEAN CORPUSCULAR HEMOGLOBIN 23 pg (27-31); MEAN CORPUSCULAR HGB CONC 32 g/dL (33-37); MEAN CORPUSCULAR VOLUME 71.9 fL (80-94); MONOCYTES # (AUTO) 0.5 K/uL (0.8-1.0); MONOCYTES % (AUTO) 6.2 % (1.7-9.3); NEUTROPHILS # (AUTO) 4.3 K/uL (1.8-7.7); PLATELET COUNT (AUTO) 301 K/uL (140-450); RED BLOOD CELL COUNT(AUTO) 4.71 MIL/uL (4.20-6.10); RED CELL DISTRIBUTION WIDTH 19.9 % (11.6-13.7); WHITE BLOOD COUNT (AUTO) 7.9 K/uL (4.8-10.8)
[2023-10-31 07:31] LABS: CALCIUM 8.2 mg/dL (8.5-10.1); CARBON DIOXIDE 29.9 mmol/L (21-32); CREATININE 0.7 mg/dL (0.6-1.3); POTASSIUM 3.9 mmol/L (3.5-5.1)
[2023-10-31 07:51] LABS: MAGNESIUM 1.9 mg/dL (1.8-2.4); PHOSPHORUS 3.6 mg/dL (2.5-4.9)
[2023-10-31 08:00] VITALS: PULSE 62; RESP 17; TEMP 97.7; O2SAT 92
[2023-10-31] MEDS ORDERED: VANCOMYCIN PER PHARMACY MC PRN (11:45)
[2023-10-31 16:00] VITALS: BP 103/67; PULSE 69; RESP 18; TEMP 97.8; O2SAT 94
[2023-10-31 20:00] VITALS: RESP 17; O2SAT 92
[2023-11-01] VITALS: BP 107/57; PULSE 87; RESP 18; TEMP 97.8; O2SAT 96
[2023-11-01 07:31] LABS: ANION GAP 12.3 (8-16); CALCIUM 8.3 mg/dL (8.5-10.1); CARBON DIOXIDE 27.9 mmol/L (21-32); CREATININE 0.7 mg/dL (0.6-1.3); POTASSIUM 4.2 mmol/L (3.5-5.1)
[2023-11-01 09:07] VITALS: TEMP 98.1
[2023-11-01 09:09] VITALS: RESP 20; O2SAT 99
[2023-11-01] MEDS: VANCOMYCIN 1,000 MG in DEXTROSE 5% 250 ML IV SCH (11:02)
[2023-11-01 16:09] VITALS: BP 125/74; PULSE 68; RESP 20; TEMP 97.1
== END 2023-11-01 16:35 | DRG 637 ==
LOC: MED 15:47 → MTU 18:28
PROC: 02HV33Z Insertion of Infusion Device into Superior Vena Cava, Percutaneous Approach (ICD-10-PCS; principal; 2023-10-27)
PROC: B548ZZA Ultrasonography of Superior Vena Cava, Guidance (ICD-10-PCS; 2023-10-27)
DX: E11.69 Type 2 diabetes mellitus with other specified complication (principal); L89.154 Pressure ulcer of sacral region, stage 4; L03.312 Cellulitis of back [any part except buttock and flank]; M46.28 Osteomyelitis of vertebra, sacral and sacrococcygeal region; N39.0 Urinary tract infection, site not specified; G82.54 Quadriplegia, C5-C7 incomplete; I10 Essential (primary) hypertension; Z93.3 Colostomy status; D64.9 Anemia, unspecified; E83.42 Hypomagnesemia; D63.8 Anemia in other chronic diseases classified elsewhere; B96.89 Other specified bacterial agents as the cause of diseases classified elsewhere; Z79.899 Other long term (current) drug therapy; Z90.49 Acquired absence of other specified parts of digestive tract; B96.5 Pseudomonas (aeruginosa) (mallei) (pseudomallei) as the cause of diseases classified elsewhere
CPT/HCPCS: 36415; 71045; 72192; 80048; 80202; 80305; 81001; 82140; 82150; 82607; 82728; 82746; 82948; 83036; 83540; 83605; 83690; 83735; 83880; 84100; 84439; 84443; 84484; 85025; 85045; 85610; 85651; 85730; 86140; 87040; 87070; 87075; 87081; 87086; 87186; 87205; 96374; 99285; C9113; J1815; J2270; J2543; J3370; J7060

== ENCOUNTER 2023-12-28 18:58 | Emergency (ER) | payer OTHER ==
[~2023-12-28] VITALS: Ht 182.9 cm; Wt 47.6 kg
[~2023-12-28 18:58] MED LIST changes: -CEPH-588 PO; -CHLO118S2 TP; -MUPI2CRE22 NS; -PIPE1SOL IV; +PIPE3.3745 IV; +VANC1PLA7 IV; -ZOLP5TAB1 PO; +ZOS3.375PM IV
[2023-12-28 19:22] VITALS: BP 115/66; PULSE 79; RESP 18; TEMP 98.5; O2SAT 97
[2023-12-28 21:15] LABS: APPEARANCE,URINE CLEAR (CLEAR); BILIRUBIN,URINE NEGATIVE (NEGATIVE); BLOOD, URINE 3+ (NEGATIVE); COLOR,URINE YELLOW (YELLOW); LEUKOCYTE ESTERASE ,URINE 1+ (NEGATIVE); NITRITE, URINE NEGATIVE (NEGATIVE); PROTEIN,URINE 1+ (NEGATIVE); UGLUCOSE NEGATIVE (NEGATIVE); UROBILINOGEN,URINE 0.2 EU/dL (0.2 - 1)
[2023-12-28 21:38] LABS: RBC,URINE 11-20 (MOD) /HPF (0-5)
[2023-12-28 21:39] LABS: BACTERIA,URINE FEW /HPF (None Seen); MUCUS,URINE None Seen /LPF (None Seen); SQUAMOUS EPITHELIAL CELL,UR 0-3 (FEW) /LPF (0-3 (FEW)); TRICHOMONAS,URINE None Seen /HPF (None Seen); WHITE BLOOD CELL CASTS,URINE None Seen /LPF (None Seen); YEAST,URINE None Seen /HPF (None Seen)
[2023-12-29] MEDS: oxyCODONE/APAP 5/325 MG 1 TAB TAB PO ONE (00:21)
[2023-12-29] MEDS: BACLOFEN 10 MG TAB PO ONE (00:23)
[2023-12-29] MEDS: ZOLPIDEM 10 MG TAB PO ONE ×2 (00:25→01:50)
[2023-12-29 06:35] VITALS: BP 112/70; PULSE 74; RESP 16; TEMP 98; O2SAT 98
== END 2023-12-29 06:35 ==
LOC: MED 18:58
DX: T83.098A Other mechanical complication of other urinary catheter, initial encounter (principal); E11.9 Type 2 diabetes mellitus without complications; I10 Essential (primary) hypertension; Z98.890 Other specified postprocedural states; Z79.899 Other long term (current) drug therapy; Y84.6 Urinary catheterization as the cause of abnormal reaction of the patient, or of later complication, without mention of misadventure at the time of the procedure
CPT/HCPCS: 51705; 81001; 87086; 87186; 99285